=== PATIENT | female | born 1940 | race Caucasian/White ===

== ENCOUNTER 2019-02-26 15:39 | Inpatient (IN) | payer MEDICARE, MEDICAID ==
[~2019-02-26] VITALS: Ht 165.1 cm; Wt 59.0 kg
[2019-02-26] MEDS ORDERED: haloperidol lactate 5mg/ml inj IM ONE ×3 (15:55→20:20)
[2019-02-26] MEDS ORDERED: diphenhydrAMINE 50 mg/ml inj IM ONE (15:55)
[2019-02-26] MEDS ORDERED: LORazepam 2 mg/ml vial IM ONE ×2 (15:55→19:25)
--- NOTE | 2019-02-26 17:54 | NUR ---
pts sons name melissa blackwell [phone] [place], [place] [id number]
--- NOTE | 2019-02-26 18:30 | NUR ---
Pt is sanding at her bedside folding and unfolding the blankets. Her son was visiting, and left during shift change. She is heard mumbling to herself. Upoon approach she is confused and cannot state who she is, where she is, or how old she is.
[2019-02-26 18:31] LABS: BASOPHILS % (AUTO) 0.4 % (0-1); EOSINOPHILS # (AUTO) 0.1 X10'3 (0-0.9); EOSINOPHILS % (AUTO) 1.7 % (0-6); HEMATOCRIT 38.1 % (35.0-45.0); HEMOGLOBIN 12.7 g/dl (12.0-16.0); LYMPHOCYTES # (AUTO) 1.2 X10'3 (1.1-4.8); LYMPHOCYTES % (AUTO) 22.1 % (21-51); MEAN CORPUSCULAR HEMOGLOBIN 31.8 PG (27.0-31.0); MEAN CORPUSCULAR HGB CONC 33.5 g/dL (33.0-36.5); MEAN CORPUSCULAR VOLUME 95.1 FL (78-98); MEAN PLATELET VOLUME 8.3 FL (7.4-10.4); MONOCYTES # (AUTO) 0.5 X10'3 (0-0.9); MONOCYTES % (AUTO) 9.1 % (2-12); NEUTROPHILS # (AUTO) 3.6 X10'3 (1.8-7.7); NEUTROPHILS % (AUTO) 66.7 % (42-75); PLATELET COUNT 200 X10'3 (140-440); RED CELL DISTRIBUTION WIDTH 13.5 % (11.5-14.5); WHITE BLOOD COUNT 5.4 X10'3 (4.5-11.0)
[2019-02-26 18:35] LABS: CLARITY,URINE TURBID (Clear); COLOR,URINE YELLOW (Yellow); GLUCOSE, URINE NEGATIVE (Neg); KETONES,URINE TRACE mg/dl (Neg); LEUKOCYTE ESTERASE ,URINE MODERATE (Neg); NITRITES, URINE NEGATIVE (Neg); OCCULT BLOOD,URINE MODERATE (Neg); PH,URINE 5.5 (4.8-8.0); PROTEIN,URINE TRACE mg/dl (Neg); UA COLLECTION TYPE CLN CATCH MIDSTREAM; UROBILINOGEN,URINE 0.2 E.U/dL (0.2-1.0)
[2019-02-26 18:37] LABS: ALANINE AMINOTRANSFERASE 20 U/L (12-78); ALBUMIN 3.7 G/DL (3.4-5.0); ALBUMIN/GLOBULIN RATIO 1.1 (1.1-1.5); ALKALINE PHOSPHATASE 64 IU/L (46-116); ANION GAP 11 (8-16); ASPARTATE AMINO TRANSFERASE 18 U/L (10-37); BILIRUBIN,TOTAL 0.3 MG/DL (0.1-1.0); BLOOD UREA NITROGEN 45 MG/DL (7-18); CALCIUM 9.4 MG/DL (8.5-10.1); CHLORIDE 107 MMOL/L (99-107); GLUCOSE 113 MG/DL (70-104); POTASSIUM 3.7 MMOL/L (3.5-5.1); SODIUM 143 MMOL/L (135-145); TOTAL CARBON DIOXIDE 25.3 MMOL/L (24-32); TOTAL PROTEIN 7.2 G/DL (6.4-8.2)
[2019-02-26 18:40] LABS: URINE AMPHETAMINE SCREEN NEGATIVE (Neg); URINE BARBITUATE SCREEN NEGATIVE (Neg); URINE BENZODIAZEPINES SCREEN NEGATIVE (Neg); URINE CANNABINOID SCREEN NEGATIVE (Neg); URINE COCAINE SCREEN NEGATIVE (Neg); URINE METHADONE SCREEN NEGATIVE (Neg); URINE OPIATE SCREEN NEGATIVE (Neg); URINE PHENCYCLIDINE SCREEN NEGATIVE (Neg)
[2019-02-26 18:41] LABS: BACTERIA,URINE NONE SEEN /HPF (Neg); MUCUS STRANDS NONE SEEN /LPF (Neg); RBC,URINE 0-2 /HPF (0-2); WBC,URINE 0-4 /HPF (0-4)
[2019-02-26 18:42] LABS: AMORPHOUS URATES 4+; SQUAMOUS EPITHELIAL CELL,UR FEW /LPF (FEW)
[2019-02-26 18:47] LABS: ETHANOL < 0.010 GM/DL (0.0-0.010)
[2019-02-26] MEDS ORDERED: nitrofuran/nitrofuran macrocrysal 100 MG capsule PO ONE (19:00)
[2019-02-26] MEDS ORDERED: cephalexin 250mg capsule PO ONE (19:00)
[2019-02-26 19:20] LABS: BUN/CREATININE RATIO 35.2 (6.6-38.0); CREATININE 1.28 MG/DL (0.40-0.90); eGFR 40 ML/MIN
--- NOTE | 2019-02-26 19:30 | NUR ---
This staff writer triaged and admitted pt, patient is a very poor historian and cannot answer majority of the questions asked. As the assessment and interview was happening pt was trying to wander the unit, pt was redirected by staff multiple times unitl she was sitting in bed.
--- NOTE | 2019-02-26 19:35 | NUR ---
Pt has no external medication rec. and cannot tell development writer if she is on any medications. Her son reported to [facility] nurse that pt is not on any medications at home.
--- NOTE | 2019-02-26 19:40 | NUR ---
Pt is becoming agitated with staff because she is asked to stay in bed/in her area. She repeatedly gets up and tries to go through doors and does not know where she is. She smiles at staff and says nonsensical things, but then tries to get by and walk around. PA consulted, 1mg ativan IM ordered and given with no complications.
--- NOTE | 2019-02-26 20:30 | NUR ---
Pt is becoming more agitated and less redirectable. She appears confused, thinking she "needs to be somewhere" and is calling out people's names. PA consulted, haldol 2.5 mg IM ordered, injection given with no complications. Pt sits down momentarily but is still trying to get up and wander/look for things.
[2019-02-26] MEDS ORDERED: OLANZapine **IM** 10 mg inj. IM ONE (20:35)
--- NOTE | 2019-02-26 20:50 | NUR ---
PT was closing her eyes and trying to stand up and walk around. Staff explained to pt multiple times why she had to stay in bed and explained fall precautions to pt. Pt did not undersatdn and keeps mumbling and trying to wander with her eyes closed. Staff keeps reassuring pt and telling her she is safe and to try to get sleep. Pt remains confused and disoriented. She continues to try to get up with her eyes closed and begins trying to crawl on her hands an knees across the bed. Pt is helped back down onto her buttock on the bed and explained why she can not be crawling on her hands and knees because it is a fall risk. Pt responds unintelligibly and again gets on her hands and knees and begins crawling across the bed and staff prevents her from falling head first onto the floor. PA is notified, 5 mg zyprexa IM ordered, injection administered without complication, pt tolerated well. Orders for restraints also obtained due to acute confusiuon and combativeness.
--- NOTE | 2019-02-26 21:00 | NUR ---
NON BEHAVIORAL RESTRAINTS APPLIED at 2100 Non behavioral sloft restraints applied to RUE and LUE. Vital signs charted in flow sheet, WNL. PA face to face assessment completed by Omer Steiner . Pt's capillary refill WNL bilaterally. No injuries sustained during restraint initiation.
--- NOTE | 2019-02-26 21:05 | NUR ---
packet faxed to [facility]
--- NOTE | 2019-02-26 21:55 | NUR ---
After recieving zyprexa pt is helped to lay down in bed but keeps trying to stand up with her eyes closed and blindly take steps. Pt is helped sit back down in bed and becomes combative with staff and begins kicking and trying to hit staff with her eyes closed mumbling random words. Staff attempts to reorient and reassure pt once again, but pt remains confused and thinks she must get up and "go somewhere." Addendum: 02/27/19 at 0219 by PARAMJIT note is for 20:55 not 21:55
--- NOTE | 2019-02-26 22:00 | NUR ---
PT continues to be in soft restraints 2 point RUE and LUE. Pt's capillary refill WNL bilaterally. No injuries noted. Pt is still confused and mumbling unintelligibly and kicking her legs. PT is reassured that she is safe and reorientation is attempted. Watch Adjuster tells pt she is in the hospital, but pt just says nonsensical things and tries to get up.
--- NOTE | 2019-02-26 23:00 | NUR ---
PT is reassessed, but remains confused and trying to get up. She continues to mumble unintelligibly and fight against the restraints. Staff undo RUE for ROM and assess wrist, no injuries observed. Wrist is placed back into soft restraint. LUE is then released for ROM and to assess wrist, no injuries observed. Vital signs taken and charted, WNL. Capillary refill WNL. Physician notified that pt is still awake, confused, and fighting restraints despite reassurance and reorientation. Physician orders EKG.
[2019-02-26] MEDS ORDERED: ziprasidone IM 20mg inj **IM only IM ONE (23:05)
--- NOTE | 2019-02-26 23:25 | NUR ---
EGK completed and signed off by physician. 20mg Geodon IM ordered. PT given injection with no complications, pt tolerated well.
--- NOTE | 2019-02-27 01:00 | NUR ---
PT reassessed, pt is sleeping on and off, but when she wakes up she remains confused and agitated. RUE released and ROM completed, wrist assessed with no injury noted. RUE then placed back into soft restraint. LUE released and ROM completed, wrist assessed, no injuries noted. LUE then placed back in soft restraint. PT continues to mumble and kick her legs. Vital signs WNL
--- NOTE | 2019-02-27 02:00 | NUR ---
PT resting quietly at this time, staff at bedside. Respirations WNL. Pt wakes up occasionally and mumbles and kicks her feet.
--- NOTE | 2019-02-27 03:00 | NUR ---
PT reassessed, pt sleeps for 10 to 15 minute intervals, but when she wakes up she remains confused and agitated. PT continues to mumble, growl and kick her legs. Vital signs WNL. Capillary refill WNL.
--- NOTE | 2019-02-27 04:00 | NUR ---
Pt is mumbling and kicking her feet. Retirement Specialist tries to re-orient patient but she remains confused and is unable to answer questions. Respirations WNL. Depends briefs dry at this time. Pt offered sips of water but would not drink.
--- NOTE | 2019-02-27 05:00 | NUR ---
PT is reassessed, but remains confused and trying to get up. She continues to mumble unintelligibly and fight against the restraints. Staff undo RUE for ROM and assess wrist, no injuries observed. Wrist is placed back into soft restraint. PT attempts to hit staff. LUE is then released for ROM and to assess wrist, no injuries observed. Vital signs taken and charted, WNL. Capillary refill WNL.
--- NOTE | 2019-02-27 05:30 | NUR ---
PT's depends brief changed and delmy care completed. PT had urinated. New green scrub pants put on pt. Pt tried to kick staff while changing brief. Soon after being changed, pt fell asleep.
--- NOTE | 2019-02-27 06:31 | NUR ---
Pt. has been moved from bed 20 to bed 14
--- NOTE | 2019-02-27 07:54 | NUR ---
Spoke with MD regarding elevated BP trends and known history of HTN. MD to order norvasc PO.
[2019-02-27] MEDS ORDERED: amLODIPine 5mg tablet PO ONE ×3 (08:00→21:35)
--- NOTE | 2019-02-27 10:41 | NUR ---
pt was wet and now changed and sleeping peacefully in bed.
--- NOTE | 2019-02-27 11:58 | NUR ---
PT RESTING ON HER BACK.
--- NOTE | 2019-02-27 12:23 | NUR ---
PT IS SLEEPING PEACEFULLY
[2019-02-27] MEDS ORDERED: CefTRIAXone/D5W-Rocephin 1gm 50 ML IV ONE (12:50)
--- NOTE | 2019-02-27 15:00 | NUR ---
pt sleeping on back
[2019-02-27] MEDS ORDERED: magnesium 4gm in 100ml NS 100 ML IV PRN (17:20)
[2019-02-27] MEDS ORDERED: ondansetron/PF 4mg/2ml inj IV PRN (17:20)
[2019-02-27] MEDS ORDERED: potassium Cl 20 mEq SR tablet PO PRN (17:20)
[2019-02-27] MEDS ORDERED: potassium CL 10mEq/100ml bag 100 ML IV PRN ×2 (17:20)
[2019-02-27] MEDS ORDERED: magnesium 2GM in 50ml NS 50 ML IV PRN (17:20)
[2019-02-27] MEDS ORDERED: magnesium Cl slow-release 64mg tablet PO PRN (17:20)
[2019-02-27] MEDS: normal saline 1000ml 1,000 ML IV SCH (17:28)
--- NOTE | 2019-02-27 17:54 | NUR ---
pt is sitting up and tring to get up
--- NOTE | 2019-02-27 17:55 | NUR ---
pt attempting to get pout of bed. restraints were removed for a bit while pt was sleeping, from 1530 to 1745, then reapplied once pt was back awake and attempting to pull at lines and get oob. will cont to monitor
[2019-02-27 18:00] VITALS: BP 150/63
[2019-02-27] MEDS ORDERED: NO HOME MEDS (18:00)
--- NOTE | 2019-02-27 18:30 | NUR ---
Assumed care of pt., pt. resting comfortably at this time. Relased non-behavioral soft wrist restraints per no s/s of need (i.e. pt. does not present as unsafe at this time). Assessed wrist area and skin, skin remains CDI and capillary refill WNL. Pt. able to perform active ROM in all extremities. Continuous N/S flowing at 100ml/hr to IV in rt. hand, IV patent and no s/s of redness or induration at this time. Pt. also has a bedoya catheter in place, and clear yellow urine is flowing to gravity. Pt. remains A&O X1 to name only, she is confused. However, pt. is able to answer some yes/no questions. RR are normal and no s/s of pain or distress. Fall precautions remain in place, and pt. in sight of nurse's station. Will continue to monitor.
--- NOTE | 2019-02-27 20:25 | NUR ---
I have received report from Courtney WILDER in ED and had the opportunity to ask questions. Will take over patient after arrival to floor.
--- NOTE | 2019-02-27 20:30 | NUR ---
Pt. discharged on a gurney to Medical/surgical unit. Report given to TINA Huang. Pt. remains calm and cooperative, no s/s of distress. Accompanied to med/surge unit with assist of two staff members and transferred to a bed with assistance of four staff members.
[2019-02-27] MEDS: heparin, porcine 5000 units/ml vial SQ SCH (21:45)
[2019-02-28] VITALS: BP 160/61
[2019-02-28] MEDS: normal saline 1000ml 1,000 ML IV SCH ×3 (03:50→13:42)
[2019-02-28 06:30] VITALS: BP 169/89
--- NOTE | 2019-02-28 06:30 | NUR ---
Patient in room [facility]. I have received report from TINA Huang and had the opportunity to ask questions and assume patient care.
--- NOTE | 2019-02-28 06:44 | NUR ---
Problems reprioritized. Patient report given, questions answered & plan of care reviewed with Ning RN.
[2019-02-28 07:20] LABS: BASOPHILS % (AUTO) 0.4 % (0-1); EOSINOPHILS # (AUTO) 0.3 X10'3 (0-0.9); EOSINOPHILS % (AUTO) 6.7 % (0-6); HEMATOCRIT 37.2 % (35.0-45.0); HEMOGLOBIN 12.8 g/dl (12.0-16.0); LYMPHOCYTES # (AUTO) 1.5 X10'3 (1.1-4.8); LYMPHOCYTES % (AUTO) 33.7 % (21-51); MEAN CORPUSCULAR HEMOGLOBIN 31.9 PG (27.0-31.0); MEAN CORPUSCULAR HGB CONC 34.4 g/dL (33.0-36.5); MEAN CORPUSCULAR VOLUME 92.7 FL (78-98); MEAN PLATELET VOLUME 8.3 FL (7.4-10.4); MONOCYTES # (AUTO) 0.4 X10'3 (0-0.9); MONOCYTES % (AUTO) 8.2 % (2-12); NEUTROPHILS # (AUTO) 2.3 X10'3 (1.8-7.7); PLATELET COUNT 190 X10'3 (140-440); RED BLOOD COUNT 4.01 X10'6 (4.20-5.60); RED CELL DISTRIBUTION WIDTH 13.3 % (11.5-14.5); WHITE BLOOD COUNT 4.5 X10'3 (4.5-11.0)
[2019-02-28 07:29] LABS: ALBUMIN 2.9 G/DL (3.4-5.0); ANION GAP 10 (8-16); BLOOD UREA NITROGEN 22 MG/DL (7-18); BUN/CREATININE RATIO 21.8 (6.6-38.0); CHLORIDE 112 MMOL/L (99-107); CREATININE 1.01 MG/DL (0.40-0.90); GLUCOSE 81 MG/DL (70-104); MAGNESIUM 1.9 MG/DL (1.5-2.4); POTASSIUM 3.4 MMOL/L (3.5-5.1); SODIUM 145 MMOL/L (135-145); TOTAL CARBON DIOXIDE 22.9 MMOL/L (24-32); eGFR 53 ML/MIN
[2019-02-28] MEDS: K and/or MAG REPLACEMENT MC SCH (08:00)
[2019-02-28] MEDS: heparin, porcine 5000 units/ml vial SQ SCH ×2 (10:53→19:37)
[2019-02-28 11:00] VITALS: BP 124/50
[2019-02-28] MEDS: potassium Cl 20 mEq SR tablet PO PRN ×3 (12:01→21:07)
--- NOTE | 2019-02-28 18:05 | NUR ---
Patient in room [facility]. I have received report from Ning WILDER and had the opportunity to ask questions and assume patient care.
--- NOTE | 2019-02-28 18:15 | NUR ---
Problems reprioritized. Patient report given, questions answered & plan of care reviewed with TINA Huang.
--- NOTE | 2019-02-28 19:28 | NUR ---
Systolic blood pressure reported to RN as [address]. [address] Pate, ordered 2.5mg Amlodipine PO now. Will continue to monitor.
[2019-02-28] MEDS ORDERED: amLODIPine 2.5mg tablet PO ONE (19:30)
[2019-02-28 20:00] VITALS: BP 193/45
[2019-02-28 21:15] VITALS: BP 142/58
[2019-03-01] VITALS: BP 157/39
--- NOTE | 2019-03-01 06:25 | NUR ---
Patient in room [facility]. I have received report from TINA Huang and had the opportunity to ask questions and assume patient care.
[2019-03-01 07:22] LABS: BASOPHILS % (AUTO) 0.4 % (0-1); EOSINOPHILS # (AUTO) 0.3 X10'3 (0-0.9); HEMATOCRIT 40.5 % (35.0-45.0); HEMOGLOBIN 13.5 g/dl (12.0-16.0); LYMPHOCYTES # (AUTO) 1.5 X10'3 (1.1-4.8); LYMPHOCYTES % (AUTO) 34.3 % (21-51); MEAN CORPUSCULAR HEMOGLOBIN 31.6 PG (27.0-31.0); MEAN CORPUSCULAR HGB CONC 33.3 g/dL (33.0-36.5); MEAN CORPUSCULAR VOLUME 94.8 FL (78-98); MEAN PLATELET VOLUME 8.3 FL (7.4-10.4); MONOCYTES # (AUTO) 0.3 X10'3 (0-0.9); NEUTROPHILS # (AUTO) 2.2 X10'3 (1.8-7.7); NEUTROPHILS % (AUTO) 51.3 % (42-75); PLATELET COUNT 212 X10'3 (140-440); RED BLOOD COUNT 4.27 X10'6 (4.20-5.60); RED CELL DISTRIBUTION WIDTH 13.5 % (11.5-14.5); WHITE BLOOD COUNT 4.3 X10'3 (4.5-11.0)
[2019-03-01 07:30] VITALS: BP 234/69
[2019-03-01 07:39] LABS: ALBUMIN 3.2 G/DL (3.4-5.0); ANION GAP 9 (8-16); BLOOD UREA NITROGEN 16 MG/DL (7-18); BUN/CREATININE RATIO 15.8 (6.6-38.0); CALCIUM 8.6 MG/DL (8.5-10.1); CHLORIDE 113 MMOL/L (99-107); CREATININE 1.01 MG/DL (0.40-0.90); GLUCOSE 90 MG/DL (70-104); POTASSIUM 4.1 MMOL/L (3.5-5.1); SODIUM 146 MMOL/L (135-145); TOTAL CARBON DIOXIDE 23.7 MMOL/L (24-32); eGFR 53 ML/MIN
[2019-03-01] MEDS ORDERED: CefTRIAXone 2gm/D5W 50ml 50 ML IV SCH (08:00)
[2019-03-01] MEDS ORDERED: lisinopril 10 MG tablet PO SCH (08:00)
[2019-03-01] MEDS ORDERED: amLODIPine 5mg tablet PO SCH (08:00)
[2019-03-01] MEDS: heparin, porcine 5000 units/ml vial SQ SCH ×2 (09:06→19:26)
[2019-03-01] MEDS: normal saline 1000ml 1,000 ML IV SCH ×2 (09:06→20:56)
[2019-03-01] MEDS: K and/or MAG REPLACEMENT MC SCH (09:06)
[2019-03-01 11:30] VITALS: BP 178/64
[2019-03-01] MEDS ORDERED: amLODIPine 5mg tablet PO ONE (12:10)
[2019-03-01] MEDS: magnesium hydroxide 30ml (MOM) UD suspension PO PRN (17:01)
[2019-03-01] MEDS: acetaminophen 325mg tablet PO PRN (17:01)
--- NOTE | 2019-03-01 18:05 | NUR ---
Patient in room [facility]. I have received report from Ning WILDER and had the opportunity to ask questions and assume patient care.
--- NOTE | 2019-03-01 18:15 | NUR ---
Problems reprioritized. Patient report given, questions answered & plan of care reviewed with TINA Huang.
[2019-03-01 20:00] VITALS: BP 169/78
[2019-03-01] MEDS ORDERED: lisinopril 20mg tablet PO ONE (23:20)
--- NOTE | 2019-03-01 23:21 | NUR ---
Blood pressure reported to RN as 180/66 and heart rate 50. Notified Dr. Perez, ordered Lisinopril 20mg PO now and increase morning scheduled dose to Lisinopril 40mg PO Daily.
[2019-03-02] VITALS: BP 180/66
[2019-03-02 05:20] LABS: BASOPHILS % (AUTO) 0.3 % (0-1); EOSINOPHILS # (AUTO) 0.2 X10'3 (0-0.9); EOSINOPHILS % (AUTO) 3.8 % (0-6); HEMATOCRIT 39.4 % (35.0-45.0); HEMOGLOBIN 13.5 g/dl (12.0-16.0); LYMPHOCYTES # (AUTO) 1.5 X10'3 (1.1-4.8); LYMPHOCYTES % (AUTO) 32.6 % (21-51); MEAN CORPUSCULAR HEMOGLOBIN 32.1 PG (27.0-31.0); MEAN CORPUSCULAR HGB CONC 34.2 g/dL (33.0-36.5); MEAN CORPUSCULAR VOLUME 93.6 FL (78-98); MEAN PLATELET VOLUME 8.1 FL (7.4-10.4); MONOCYTES # (AUTO) 0.4 X10'3 (0-0.9); MONOCYTES % (AUTO) 9.6 % (2-12); NEUTROPHILS # (AUTO) 2.5 X10'3 (1.8-7.7); NEUTROPHILS % (AUTO) 53.7 % (42-75); PLATELET COUNT 219 X10'3 (140-440); RED BLOOD COUNT 4.21 X10'6 (4.20-5.60); WHITE BLOOD COUNT 4.6 X10'3 (4.5-11.0)
[2019-03-02 05:23] LABS: ALBUMIN 3.6 G/DL (3.4-5.0); ANION GAP 10 (8-16); BLOOD UREA NITROGEN 12 MG/DL (7-18); BUN/CREATININE RATIO 12.6 (6.6-38.0); CALCIUM 8.7 MG/DL (8.5-10.1); CHLORIDE 109 MMOL/L (99-107); CREATININE 0.95 MG/DL (0.40-0.90); GLUCOSE 101 MG/DL (70-104); POTASSIUM 3.5 MMOL/L (3.5-5.1); SODIUM 145 MMOL/L (135-145); TOTAL CARBON DIOXIDE 25.7 MMOL/L (24-32); eGFR 57 ML/MIN
--- NOTE | 2019-03-02 06:05 | NUR ---
Patient in room [facility]. I have received report from TINA Huang and had the opportunity to ask questions and assume patient care.
--- NOTE | 2019-03-02 06:27 | NUR ---
Problems reprioritized. Patient report given, questions answered & plan of care reviewed with Ning RN.
[2019-03-02 06:30] VITALS: BP 158/57
[2019-03-02] MEDS: K and/or MAG REPLACEMENT MC SCH (06:49)
[2019-03-02] MEDS: lisinopril 20mg tablet PO SCH (08:05)
[2019-03-02] MEDS: amLODIPine 5mg tablet PO SCH (08:06)
[2019-03-02] MEDS: heparin, porcine 5000 units/ml vial SQ SCH ×2 (08:07→19:33)
[2019-03-02] MEDS: magnesium hydroxide 30ml (MOM) UD suspension PO PRN (08:28)
[2019-03-02] MEDS: normal saline 1000ml 1,000 ML IV SCH (10:05)
[2019-03-02 11:00] VITALS: BP 130/54
--- NOTE | 2019-03-02 18:10 | NUR ---
Problems reprioritized. Patient report given, questions answered & plan of care reviewed with TINA Rajput.
[2019-03-02 18:50] VITALS: BP 138/60
[2019-03-03 05:38] LABS: BASOPHILS % (AUTO) 0.5 % (0-1); EOSINOPHILS # (AUTO) 0.3 X10'3 (0-0.9); EOSINOPHILS % (AUTO) 6.7 % (0-6); HEMATOCRIT 34.4 % (35.0-45.0); HEMOGLOBIN 11.7 g/dl (12.0-16.0); LYMPHOCYTES # (AUTO) 2.1 X10'3 (1.1-4.8); LYMPHOCYTES % (AUTO) 45.2 % (21-51); MEAN CORPUSCULAR HEMOGLOBIN 32.1 PG (27.0-31.0); MEAN CORPUSCULAR VOLUME 94.4 FL (78-98); MEAN PLATELET VOLUME 8.7 FL (7.4-10.4); MONOCYTES # (AUTO) 0.4 X10'3 (0-0.9); MONOCYTES % (AUTO) 8.2 % (2-12); NEUTROPHILS # (AUTO) 1.8 X10'3 (1.8-7.7); NEUTROPHILS % (AUTO) 39.4 % (42-75); PLATELET COUNT 203 X10'3 (140-440); RED BLOOD COUNT 3.65 X10'6 (4.20-5.60); RED CELL DISTRIBUTION WIDTH 13.3 % (11.5-14.5); WHITE BLOOD COUNT 4.6 X10'3 (4.5-11.0)
[2019-03-03 05:42] LABS: ALBUMIN 2.7 G/DL (3.4-5.0); ANION GAP 5 (8-16); BLOOD UREA NITROGEN 19 MG/DL (7-18); CALCIUM 8.1 MG/DL (8.5-10.1); CHLORIDE 111 MMOL/L (99-107); CREATININE 1.12 MG/DL (0.40-0.90); GLUCOSE 88 MG/DL (70-104); POTASSIUM 4.2 MMOL/L (3.5-5.1); SODIUM 144 MMOL/L (135-145); TOTAL CARBON DIOXIDE 27.6 MMOL/L (24-32); eGFR 47 ML/MIN
--- NOTE | 2019-03-03 06:24 | NUR ---
Problems reprioritized. Patient report given, questions answered & plan of care reviewed with GEORGINA. Addendum: 03/03/19 at 0624 by Akil Fowler RN Amended: Links added.
--- NOTE | 2019-03-03 06:25 | NUR ---
Patient in room [facility]. I have received report from TINA Rajput and had the opportunity to ask questions and assume patient care.
[2019-03-03] MEDS: heparin, porcine 5000 units/ml vial SQ SCH ×2 (07:19→19:56)
[2019-03-03] MEDS: lisinopril 20mg tablet PO SCH (07:19)
[2019-03-03] MEDS: amLODIPine 5mg tablet PO SCH (07:19)
[2019-03-03 08:00] VITALS: BP 165/73
[2019-03-03] MEDS: K and/or MAG REPLACEMENT MC SCH (08:00)
[2019-03-03 09:00] VITALS: BP 128/49
--- NOTE | 2019-03-03 10:41 | NUR ---
Initial: Pt admit with cognitive impairment, probable dementia with progressive decline over the last 2 year per H&P. Patient's mentation improved per MD notes however documented as confused and A/O x 1 per physical assessment. Pt on abx and IV fluids stopped d/t pt with suspected UTI and probable dehydration/ALICE per MD notes. Pt currently on regular diet documented with average 75-100% PO intake likely meeting nutrient needs. LBM 03/02 with multiple small BMs after receiving bowel care d/t LBM previously 02/26 per physical assessment. No edema or wounds. No nutrition diagnosis at this time. Will continue to follow. Recommendations: 1) Continue with regular diet 2) Routine bowel care 3) Wt per rx Addendum: 03/03/19 at [address] Amended: Links added.
--- NOTE | 2019-03-03 10:48 | NUR ---
Patient in room [facility]. I have received report from TINA Hollins and had the opportunity to ask questions and assume patient care.
[2019-03-03 11:00] VITALS: BP 148/69
--- NOTE | 2019-03-03 18:46 | NUR ---
Problems reprioritized. Patient report given, questions answered & plan of care reviewed with TINA Peña.
[2019-03-03 20:00] VITALS: BP 156/88
[2019-03-04] VITALS: BP 121/57
[2019-03-04 05:02] LABS: BASOPHILS % (AUTO) 0.4 % (0-1); EOSINOPHILS # (AUTO) 0.3 X10'3 (0-0.9); EOSINOPHILS % (AUTO) 6.4 % (0-6); HEMATOCRIT 35.3 % (35.0-45.0); LYMPHOCYTES # (AUTO) 1.9 X10'3 (1.1-4.8); LYMPHOCYTES % (AUTO) 43.1 % (21-51); MEAN CORPUSCULAR HGB CONC 33.9 g/dL (33.0-36.5); MEAN CORPUSCULAR VOLUME 94.4 FL (78-98); MEAN PLATELET VOLUME 8.5 FL (7.4-10.4); MONOCYTES # (AUTO) 0.4 X10'3 (0-0.9); MONOCYTES % (AUTO) 7.9 % (2-12); NEUTROPHILS # (AUTO) 1.9 X10'3 (1.8-7.7); NEUTROPHILS % (AUTO) 42.2 % (42-75); PLATELET COUNT 197 X10'3 (140-440); RED BLOOD COUNT 3.74 X10'6 (4.20-5.60); RED CELL DISTRIBUTION WIDTH 13.2 % (11.5-14.5); WHITE BLOOD COUNT 4.4 X10'3 (4.5-11.0)
[2019-03-04 05:09] LABS: ALBUMIN 2.8 G/DL (3.4-5.0); ANION GAP 8 (8-16); BLOOD UREA NITROGEN 24 MG/DL (7-18); BUN/CREATININE RATIO 23.8 (6.6-38.0); CALCIUM 8.9 MG/DL (8.5-10.1); CHLORIDE 111 MMOL/L (99-107); CREATININE 1.01 MG/DL (0.40-0.90); GLUCOSE 89 MG/DL (70-104); SODIUM 144 MMOL/L (135-145); TOTAL CARBON DIOXIDE 24.6 MMOL/L (24-32); eGFR 53 ML/MIN
--- NOTE | 2019-03-04 06:39 | NUR ---
Problems reprioritized. Patient report given, questions answered & plan of care reviewed with TINA Oden.
--- NOTE | 2019-03-04 06:41 | NUR ---
Patient in room [facility]. I have received report from Casey WILDER and had the opportunity to ask questions and assume patient care.
[2019-03-04] MEDS: K and/or MAG REPLACEMENT MC SCH (07:56)
[2019-03-04 08:51] VITALS: BP 135/59
[2019-03-04] MEDS: lisinopril 20mg tablet PO SCH (09:15)
[2019-03-04] MEDS: amLODIPine 5mg tablet PO SCH (09:15)
[2019-03-04] MEDS: heparin, porcine 5000 units/ml vial SQ SCH ×2 (09:16→19:01)
[2019-03-04 10:48] VITALS: BP 137/55
[2019-03-04 11:00] VITALS: BP 137/55
[2019-03-04 18:00] VITALS: BP 134/57
--- NOTE | 2019-03-04 18:50 | NUR ---
Problems reprioritized. Patient report given, questions answered & plan of care reviewed with Casey WILDER.
[2019-03-04] MEDS ORDERED: LORazepam 0.5 MG tablet PO PRN (21:55)
[2019-03-05] VITALS: BP 185/67
[2019-03-05] MEDS: LORazepam 2 mg/ml vial IV PRN ×2 (02:19→10:30)
[2019-03-05] MEDS ORDERED: LORazepam 2 mg/ml vial IM ONE (03:50)
--- NOTE | 2019-03-05 04:19 | NUR ---
PT INCREASINGLY AGITATED, UNABLE TO BE REORIENTED AND CALMED DOWN. PT BECAME COMBATIVE, GOING THROUGH ROOMMATE'S BELONGINGS DESPITE ATTEMPTS TO STOP BEHAVIOR AND REORIENT PT. ORDERS OBTAINED FOR SOFT RESTRAINTS AND 1MG IM ATIVAN ONCE
--- NOTE | 2019-03-05 06:10 | NUR ---
pt resting in bed, in no apparent distress. restraints taken off. will continue to monitor
--- NOTE | 2019-03-05 06:34 | NUR ---
Problems reprioritized. Patient report given, questions answered & plan of care reviewed with TINA Oden.
--- NOTE | 2019-03-05 06:56 | NUR ---
Patient in room [facility]. I have received report from Casey WILDER and had the opportunity to ask questions and assume patient care.
[2019-03-05 07:00] VITALS: BP 112/50
[2019-03-05 07:58] VITALS: BP 142/101
[2019-03-05] MEDS: K and/or MAG REPLACEMENT MC SCH (08:00)
--- NOTE | 2019-03-05 09:27 | NUR ---
Patient still sleepy at this time, able to respond when being touch but will not cooperate at this time. Oral meds and heparin SQ scheduled this am held at this time
--- NOTE | 2019-03-05 09:28 | NUR ---
I have told Dr. Fan when he called me at earlier time about patient's agitation and combativeness last night. I let him know that patient ended up being on 2 point restraints last night and currently off at this time. Sitter at bedside watching the patient
--- NOTE | 2019-03-05 09:49 | NUR ---
Patient awake at this time but agitated and combative trying to kick the sitter. 2point soft wrist restraint reapplied
[2019-03-05] MEDS: amLODIPine 5mg tablet PO SCH (09:51)
[2019-03-05] MEDS: lisinopril 20mg tablet PO SCH (09:52)
[2019-03-05] MEDS: heparin, porcine 5000 units/ml vial SQ SCH ×2 (09:53→21:54)
--- NOTE | 2019-03-05 10:33 | NUR ---
Sitter at bedside reported that patient thew the food tray to the floor and also trying to throw things towards the other patient in bed B. Patient's was placed back on restraints and Ativan 0.5mg IV given. Charge nurse Charo younger.
[2019-03-05 11:00] VITALS: BP 129/62
--- NOTE | 2019-03-05 15:49 | NUR ---
Student documentation: I have reviewed all interventions, assessments performed and documented by Gallito ROSARIO
[2019-03-05 18:00] VITALS: BP 106/46
--- NOTE | 2019-03-05 18:37 | NUR ---
Problems reprioritized. Patient report given, questions answered & plan of care reviewed with Elmer WILDER.
--- NOTE | 2019-03-05 19:46 | NUR ---
Patient in room [facility]. I have received report from TINA Oden and had the opportunity to ask questions and assume patient care.
[2019-03-05] MEDS: QUEtiapine 25mg tablet PO SCH (21:55)
[2019-03-06] VITALS: BP 114/48
--- NOTE | 2019-03-06 03:58 | NUR ---
Patient has been cooperative, and pleasant so far this shift. Sitter at bedside. Patient resting
--- NOTE | 2019-03-06 06:24 | NUR ---
Problems reprioritized. Patient report given, questions answered & plan of care reviewed with TINA Swift.
[2019-03-06 07:37] VITALS: BP 103/42
[2019-03-06] MEDS: amLODIPine 5mg tablet PO SCH (07:55)
[2019-03-06] MEDS: heparin, porcine 5000 units/ml vial SQ SCH ×2 (07:55→20:04)
[2019-03-06] MEDS: lisinopril 20mg tablet PO SCH (07:55)
[2019-03-06] MEDS: K and/or MAG REPLACEMENT MC SCH (07:56)
[2019-03-06 15:07] VITALS: BP 122/48
--- NOTE | 2019-03-06 18:40 | NUR ---
Patient in room [facility]. I have received report from Jeniffer Goodson and had the opportunity to ask questions and assume patient care. Addendum: 03/06/19 at 1840 by Whitney Veliz RN Amended: Links added.
[2019-03-06 20:00] VITALS: BP 113/43
--- NOTE | 2019-03-06 20:00 | NUR ---
pt took her hs meds with applesauce. medicated with one tylenol for aches and sitter at bedside to redirect her.
[2019-03-06] MEDS: QUEtiapine 25mg tablet PO SCH (20:04)
[2019-03-06] MEDS: acetaminophen 325mg tablet PO PRN (20:05)
--- NOTE | 2019-03-06 20:40 | NUR ---
pt up ambulating in the bello several laps with the sitter.
--- NOTE | 2019-03-06 22:35 | NUR ---
pt alert and ambulATED TO P WITH 2 STAFF MEMBERS. PT SLEEPY BUT FIGHTING IT. TOLERATED AMBULATION WELL AND GAVE HER COLOERED PINS AND PAPER TO REDIRECT HER.
[2019-03-07] VITALS: BP 106/89
--- NOTE | 2019-03-07 00:39 | NUR ---
pt resting eyes closed with sitter at the bedside.
--- NOTE | 2019-03-07 02:30 | NUR ---
resting eyes closed without changes. sitter at the bedside.
--- NOTE | 2019-03-07 04:30 | NUR ---
resting without changes.
--- NOTE | 2019-03-07 06:30 | NUR ---
Patient in room [facility]. I have received report from JIN WILDER and had the opportunity to ask questions and assume patient care.
--- NOTE | 2019-03-07 06:42 | NUR ---
Problems reprioritized. Patient report given, questions answered & plan of care reviewed with Juan Goodson. Addendum: 03/07/19 at 0642 by Whitney Veliz RN Amended: Links added.
[2019-03-07 07:44] VITALS: BP 172/84
[2019-03-07] MEDS: K and/or MAG REPLACEMENT MC SCH (07:55)
[2019-03-07] MEDS: heparin, porcine 5000 units/ml vial SQ SCH ×2 (08:00→20:13)
[2019-03-07] MEDS: amLODIPine 5mg tablet PO SCH (08:04)
[2019-03-07] MEDS: lisinopril 20mg tablet PO SCH (08:04)
--- NOTE | 2019-03-07 08:27 | NUR ---
PATIENT HEPARIN WAS NON ADMINISTERED DUE TO THE FACT THAT NO RECENT LAB VALUES HAVE BEEN OBTAINED ON PATIENTS CLOTTING FACTORS. WILL NOTIFY PHYSICIAN.
[2019-03-07 11:00] VITALS: BP 117/48
--- NOTE | 2019-03-07 18:45 | NUR ---
Problems reprioritized. Patient report given, questions answered & plan of care reviewed with Whitney WILDER.
--- NOTE | 2019-03-07 18:55 | NUR ---
Patient in room [facility]. I have received report from Juan Goodson and had the opportunity to ask questions and assume patient care. Addendum: 03/07/19 at 1855 by Whitney Veliz RN Amended: Links added.
[2019-03-07 20:00] VITALS: BP 148/68
[2019-03-07] MEDS: QUEtiapine 25mg tablet PO SCH (20:13)
[2019-03-07] MEDS: magnesium hydroxide 30ml (MOM) UD suspension PO PRN (20:33)
--- NOTE | 2019-03-07 20:37 | NUR ---
pt given warm brown smita and MOM for Bm not had since 03/02/19
--- NOTE | 2019-03-07 22:00 | NUR ---
pt up ambulating in the room and encouraged to lay down sitter in the room with pt. laying down awake.
--- NOTE | 2019-03-07 23:18 | NUR ---
resting eyes closed without changes.
[2019-03-08] VITALS: BP 121/43
--- NOTE | 2019-03-08 01:14 | NUR ---
pt resting without changes sitter at bedside.
--- NOTE | 2019-03-08 03:15 | NUR ---
pt awake sitting up edge of bed talking with the sitter.
--- NOTE | 2019-03-08 05:34 | NUR ---
pt resting right side no s&s of distress at this time.
--- NOTE | 2019-03-08 06:30 | NUR ---
Patient in room [facility]. I have received report from Whitney WILDER and had the opportunity to ask questions and assume patient care.
--- NOTE | 2019-03-08 06:35 | NUR ---
Problems reprioritized. Patient report given, questions answered & plan of care reviewed with Juan Goodson. Addendum: 03/08/19 at 0636 by Whitney Veliz RN Amended: Links added.
[2019-03-08] MEDS: K and/or MAG REPLACEMENT MC SCH (08:00)
[2019-03-08] MEDS: heparin, porcine 5000 units/ml vial SQ SCH ×2 (08:00→20:00)
[2019-03-08] MEDS: lisinopril 20mg tablet PO SCH (08:13)
[2019-03-08] MEDS: amLODIPine 5mg tablet PO SCH (08:14)
[2019-03-08 10:29] VITALS: BP 123/46
[2019-03-08 11:00] VITALS: BP 147/70
[2019-03-08 18:00] VITALS: BP 133/48
--- NOTE | 2019-03-08 18:30 | NUR ---
Problems reprioritized. Patient report given, questions answered & plan of care reviewed with Whitney WILDER.
--- NOTE | 2019-03-08 18:35 | NUR ---
Patient in room [facility]. I have received report from DEANNA WILDER and had the opportunity to ask questions and assume patient care. Addendum: 03/08/19 at 1907 by Whitney Veliz RN Amended: Links added.
[2019-03-08 19:30] VITALS: BP 133/48
--- NOTE | 2019-03-08 20:35 | NUR ---
pt took hs meds heparin held no current labs on her for this.
--- NOTE | 2019-03-08 20:40 | NUR ---
Dr Pate notified of no current labs for dvt tx and cbc ordered for the am
[2019-03-08] MEDS: QUEtiapine 25mg tablet PO SCH (20:54)
--- NOTE | 2019-03-08 22:33 | NUR ---
pt up ambulating in the room and the bello with the sitter. pleasant. drank warm milk.
[2019-03-09] VITALS: BP 154/70
--- NOTE | 2019-03-09 00:25 | NUR ---
pt awake sitting up edge of bed talking with sitter had a snack.
--- NOTE | 2019-03-09 00:30 | NUR ---
pt laying down with head at the foot of the bed resting eyes closed without s&s of distress with sitter at the bedside. Addendum: 03/10/19 at 0217 by Whitney Veliz RN day!
--- NOTE | 2019-03-09 01:35 | NUR ---
resting on side without changes
--- NOTE | 2019-03-09 03:26 | NUR ---
resting no change sitter at bedside
--- NOTE | 2019-03-09 05:13 | NUR ---
attempt to remove old iv from pt out dated and pt refused to let staff do that.
--- NOTE | 2019-03-09 06:13 | NUR ---
Problems reprioritized. Patient report given, questions answered & plan of care reviewed with Juan Goodson. Addendum: 03/09/19 at 0613 by Whitney Veliz RN Amended: Links added.
[2019-03-09 06:30] LABS: BASOPHILS % (AUTO) 0.4 % (0-1); EOSINOPHILS # (AUTO) 0.3 X10'3 (0-0.9); EOSINOPHILS % (AUTO) 6.1 % (0-6); HEMATOCRIT 34.9 % (35.0-45.0); HEMOGLOBIN 11.9 g/dl (12.0-16.0); LYMPHOCYTES # (AUTO) 1.7 X10'3 (1.1-4.8); LYMPHOCYTES % (AUTO) 38.4 % (21-51); MEAN CORPUSCULAR HEMOGLOBIN 32.3 PG (27.0-31.0); MEAN CORPUSCULAR HGB CONC 34.1 g/dL (33.0-36.5); MEAN CORPUSCULAR VOLUME 94.8 FL (78-98); MEAN PLATELET VOLUME 8.6 FL (7.4-10.4); MONOCYTES # (AUTO) 0.4 X10'3 (0-0.9); MONOCYTES % (AUTO) 9.3 % (2-12); NEUTROPHILS % (AUTO) 45.8 % (42-75); PLATELET COUNT 209 X10'3 (140-440); RED BLOOD COUNT 3.68 X10'6 (4.20-5.60); RED CELL DISTRIBUTION WIDTH 13.4 % (11.5-14.5); WHITE BLOOD COUNT 4.4 X10'3 (4.5-11.0)
--- NOTE | 2019-03-09 06:30 | NUR ---
Patient in room [facility]. I have received report from Whitney WILDER and had the opportunity to ask questions and assume patient care.
[2019-03-09 08:00] VITALS: BP 96/75
[2019-03-09] MEDS: K and/or MAG REPLACEMENT MC SCH (08:00)
[2019-03-09] MEDS: amLODIPine 5mg tablet PO SCH (08:00)
[2019-03-09] MEDS: lisinopril 20mg tablet PO SCH (08:00)
[2019-03-09 11:00] VITALS: BP 121/44
[2019-03-09] MEDS: heparin, porcine 5000 units/ml vial SQ SCH ×2 (11:05→20:00)
[2019-03-09 11:10] VITALS: BP 121/44
--- NOTE | 2019-03-09 18:20 | NUR ---
Problems reprioritized. Patient report given, questions answered & plan of care reviewed with Whitney WILDER.
--- NOTE | 2019-03-09 18:36 | NUR ---
Patient in room [facility]. I have received report from Juan WILDER and had the opportunity to ask questions and assume patient care. Addendum: 03/09/19 at 1836 by Whitney Veliz RN Amended: Links added.
--- NOTE | 2019-03-09 19:00 | NUR ---
pt agitated acted like she wanted to argue with the staff not as pleasant and lively as she had been the previous 3 nights. attempted to encourage pt to let us Dc the Iv site and she refused and attempted to get her into the shower several times without success.
[2019-03-09 20:00] VITALS: BP 144/85
--- NOTE | 2019-03-09 20:20 | NUR ---
Ebony took pt into the shower room put her on the shower chair to wash her she went pee then refused to let the tech shower her sio she wiped her down and took her back to the room.
[2019-03-09] MEDS: QUEtiapine 25mg tablet PO SCH (20:24)
--- NOTE | 2019-03-09 22:20 | NUR ---
pt acting mean stated tired, pt confused and not as cheerful and animated as she had been the night before. pt admitted when asked if she had a headache and said yes. attempted earlier to dc iv pt refused to let staff touch it to dc it. asked her if she wanted to take tape off herself and again refused to do so. pt medicated with tylenol for pain.
[2019-03-09] MEDS: acetaminophen 325mg tablet PO PRN (22:21)
[2019-03-10] VITALS: BP 122/85
--- NOTE | 2019-03-10 00:30 | NUR ---
pt laying down with head at the foot of the bed. resting eyes closed without s&S of distress.
--- NOTE | 2019-03-10 02:19 | NUR ---
pt remains resting head at foot of bed wioth sitter at the bedside no s&s of distress at this time.
--- NOTE | 2019-03-10 04:03 | NUR ---
resting without changes sitter at bedside.
--- NOTE | 2019-03-10 05:49 | NUR ---
Student documentation: I have reviewed and agree with all interventions, assessments performed and documented by FABRIZIO Paulino RN.Student Medication Administration: For this medication-pass time frame, all medication were reviewed, dispensed, administered and documented per hospital policy by FABRIZIO Paulino. Addendum: 03/10/19 at 0550 by Whitney Veliz RN Amended: Links added.
--- NOTE | 2019-03-10 06:30 | NUR ---
Patient in room [facility]. I have received report from JIN WILDER and had the opportunity to ask questions and assume patient care.
--- NOTE | 2019-03-10 06:30 | NUR ---
Problems reprioritized. Patient report given, questions answered & plan of care reviewed with Cali Martinez. Addendum: 03/10/19 at 0630 by Whitney Veliz RN Amended: Links added.
[2019-03-10 07:46] VITALS: BP 138/69
[2019-03-10] MEDS: heparin, porcine 5000 units/ml vial SQ SCH ×2 (08:00→20:00)
[2019-03-10] MEDS: K and/or MAG REPLACEMENT MC SCH (08:00)
[2019-03-10] MEDS: lisinopril 20mg tablet PO SCH (08:00)
[2019-03-10] MEDS: amLODIPine 5mg tablet PO SCH (08:00)
--- NOTE | 2019-03-10 10:10 | NUR ---
Reassessment: Appetite seems to fluctuate, momentarily down to 50% PO intake however now back up averaging 75% likely meeting nutrient needs. LBM 03/08, pt receiving MoM PRN last given 03/07. Per MD notes pt is stable and is awaiting insurance approval and long-term placement. Will continue to follow. Recommendations: 1) Continue with regular diet 2) Routine bowel care 3) Wt per rx Addendum: 03/10/19 at [address] Amended: Links added.
[2019-03-10 11:00] VITALS: BP 169/56
--- NOTE | 2019-03-10 18:30 | NUR ---
Problems reprioritized. Patient report given, questions answered & plan of care reviewed with CHRISTEN WILDER.
--- NOTE | 2019-03-10 18:37 | NUR ---
Patient in room [facility]. I have received report from TINA Martinez and had the opportunity to ask questions and assume patient care.
[2019-03-10 20:00] VITALS: BP 145/69
[2019-03-10] MEDS: QUEtiapine 25mg tablet PO SCH (20:29)
[2019-03-11] VITALS: BP 134/55
--- NOTE | 2019-03-11 06:21 | NUR ---
Problems reprioritized. Patient report given, questions answered & plan of care reviewed with TINA Lr.
[2019-03-11 07:00] VITALS: BP 135/45
[2019-03-11] MEDS: K and/or MAG REPLACEMENT MC SCH (08:00)
[2019-03-11] MEDS: lisinopril 20mg tablet PO SCH (08:38)
[2019-03-11 08:39] VITALS: BP 138/70
[2019-03-11] MEDS: amLODIPine 5mg tablet PO SCH (08:45)
[2019-03-11] MEDS: heparin, porcine 5000 units/ml vial SQ SCH ×2 (08:45→19:51)
[2019-03-11 11:51] VITALS: BP 120/75
--- NOTE | 2019-03-11 17:20 | NUR ---
Page to Dr. Fan - pt getting anxious, agitated, and restless. It's getting harder to try and calm pt and redirect. No PRNs available. Ok to order Haldol? Addendum: 03/11/19 at 1722 by Adeline Castro RN called back and stated ok to give Geodon 10mg IM q8h PRN for anxiety/agitation. will place the order and administer.
--- NOTE | 2019-03-11 19:01 | NUR ---
Patient in room [facility]. I have received report from Adeline WILDER and had the opportunity to ask questions and assume patient care.
--- NOTE | 2019-03-11 19:02 | NUR ---
Problems reprioritized. Patient report given, questions answered & plan of care reviewed with TINA Krishnan.
[2019-03-11] MEDS: QUEtiapine 25mg tablet PO SCH (19:52)
[2019-03-11 20:00] VITALS: BP 123/60
[2019-03-12] VITALS: BP 144/58
--- NOTE | 2019-03-12 06:42 | NUR ---
Problems reprioritized. Patient report given, questions answered & plan of care reviewed with Carmela WILDER.
--- NOTE | 2019-03-12 06:47 | NUR ---
Patient in room [facility]. I have received report from ONEL WILDER and had the opportunity to ask questions and assume patient care.
[2019-03-12 07:12] VITALS: BP 104/37
[2019-03-12] MEDS: K and/or MAG REPLACEMENT MC SCH (08:00)
[2019-03-12] MEDS: amLODIPine 5mg tablet PO SCH (09:08)
[2019-03-12] MEDS: lisinopril 20mg tablet PO SCH (09:08)
[2019-03-12] MEDS: heparin, porcine 5000 units/ml vial SQ SCH ×2 (09:08→20:00)
--- NOTE | 2019-03-12 09:58 | NUR ---
PT HAS NOT HAD LABS DRAWN SINCE 03-06-19. UNABLE TO ASSESS MAG AND K REPLACEMENT PROTOCOL. CHARTED PT HAD CHANGE IN CONDITION, DUE TO HER BASELINE BEING MEDICALLY STABLE AND WAITING FOR PLACEMENT DUE TO NOT BEING ABLE TO RETURN HOME SAFELY.
--- NOTE | 2019-03-12 18:35 | NUR ---
gave report to Audrey Ventura RN
--- NOTE | 2019-03-12 18:40 | NUR ---
Patient in room [facility]. I have received report from JOYCELYN WILDER and had the opportunity to ask questions and assume patient care.
[2019-03-12 20:00] VITALS: BP 127/56
[2019-03-12] MEDS: QUEtiapine 25mg tablet PO SCH (20:21)
[2019-03-12] MEDS: ziprasidone IM 20mg inj **IM only IM PRN (23:42)
--- NOTE | 2019-03-13 06:33 | NUR ---
Problems reprioritized. Patient report given, questions answered & plan of care reviewed with DIEGO WILDER.
[2019-03-13] MEDS: K and/or MAG REPLACEMENT MC SCH (06:42)
[2019-03-13 07:00] VITALS: BP 114/42
[2019-03-13] MEDS: amLODIPine 5mg tablet PO SCH (09:13)
[2019-03-13] MEDS: lisinopril 20mg tablet PO SCH (09:13)
[2019-03-13] MEDS: heparin, porcine 5000 units/ml vial SQ SCH ×2 (09:14→20:07)
[2019-03-13 11:59] VITALS: BP 105/40
[2019-03-13 15:37] VITALS: BP 131/41
--- NOTE | 2019-03-13 18:22 | NUR ---
Problems reprioritized. Patient report given, questions answered & plan of care reviewed with BRAYDEN OWEN RN.
--- NOTE | 2019-03-13 18:30 | NUR ---
Patient in room [facility]. I have received report from DIEGO WILDER and had the opportunity to ask questions and assume patient care.
[2019-03-13 20:00] VITALS: BP 135/67
[2019-03-13] MEDS: QUEtiapine 25mg tablet PO SCH (20:05)
[2019-03-13] MEDS: ziprasidone IM 20mg inj **IM only IM PRN (22:27)
--- NOTE | 2019-03-14 06:18 | NUR ---
Problems reprioritized. Patient report given, questions answered & plan of care reviewed with DIEGO WILDER.
--- NOTE | 2019-03-14 06:20 | NUR ---
Patient in room [facility]. I have received report from ron velasquez rn and had the opportunity to ask questions and assume patient care.
[2019-03-14] MEDS: K and/or MAG REPLACEMENT MC SCH (06:37)
[2019-03-14] MEDS: amLODIPine 5mg tablet PO SCH (07:51)
[2019-03-14] MEDS: lisinopril 20mg tablet PO SCH (07:51)
[2019-03-14] MEDS: heparin, porcine 5000 units/ml vial SQ SCH ×2 (07:55→20:38)
[2019-03-14 07:58] VITALS: BP 114/38
[2019-03-14 12:08] VITALS: BP 104/30
--- NOTE | 2019-03-14 18:16 | NUR ---
Problems reprioritized. Patient report given, questions answered & plan of care reviewed with wendy bruner.
--- NOTE | 2019-03-14 18:50 | NUR ---
Patient in room [facility]. I have received report from TINA Shepard and had the opportunity to ask questions and assume patient care.
[2019-03-14 19:00] VITALS: BP 134/51
[2019-03-14] MEDS: QUEtiapine 25mg tablet PO SCH (20:38)
[2019-03-14] MEDS: magnesium hydroxide 30ml (MOM) UD suspension PO PRN (20:43)
[2019-03-15] VITALS: BP 145/58
--- NOTE | 2019-03-15 06:49 | NUR ---
Problems reprioritized. Patient report given, questions answered & plan of care reviewed with TINA Oden.
[2019-03-15 07:00] VITALS: BP 112/92
--- NOTE | 2019-03-15 07:04 | NUR ---
Patient in room [facility]. I have received report from Nisa WILDER and had the opportunity to ask questions and assume patient care.
[2019-03-15] MEDS: K and/or MAG REPLACEMENT MC SCH (08:00)
[2019-03-15] MEDS: heparin, porcine 5000 units/ml vial SQ SCH ×2 (08:01→20:28)
[2019-03-15] MEDS: amLODIPine 5mg tablet PO SCH (08:02)
[2019-03-15] MEDS: lisinopril 20mg tablet PO SCH (08:03)
[2019-03-15 11:00] VITALS: BP 157/41
--- NOTE | 2019-03-15 15:43 | NUR ---
Reassessment: Pt PO continues to fluctuate though more steady 60-75% avg meals meeting needs. Germain r/t advanced dementia. LBM 03/11 receiving MoM; LENA d/w RN regarding routine bowel care per MD approval. Will continue to monitor. Recommendations: 1) Continue with regular diet 2) Routine bowel care 3) Wt per rx Addendum: 03/15/19 at [address] Amended: Links added.
--- NOTE | 2019-03-15 18:28 | NUR ---
Problems reprioritized. Patient report given, questions answered & plan of care reviewed with Katerina WILDER and Bonny WILDER
--- NOTE | 2019-03-15 18:32 | NUR ---
Patient in room [facility]. I have received report from TINA Oden and had the opportunity to ask questions and assume patient care.
[2019-03-15 19:46] VITALS: BP 131/38
[2019-03-15] MEDS: QUEtiapine 25mg tablet PO SCH (20:28)
[2019-03-15] MEDS: ziprasidone IM 20mg inj **IM only IM PRN (22:55)
--- NOTE | 2019-03-15 23:02 | NUR ---
Pt agitated, hitting herself in the head, crawling on the floor, thinks we are out to hurt her, is being uncooperative for sitter. Medication administered, will continue to monitor.
--- NOTE | 2019-03-16 06:27 | NUR ---
Problems reprioritized. Patient report given, questions answered & plan of care reviewed with TINA Torres.
[2019-03-16 07:30] VITALS: BP 141/77
[2019-03-16 08:00] VITALS: BP 141/77
[2019-03-16] MEDS: lisinopril 20mg tablet PO SCH (08:00)
[2019-03-16] MEDS: heparin, porcine 5000 units/ml vial SQ SCH ×2 (08:00→21:07)
[2019-03-16] MEDS: amLODIPine 5mg tablet PO SCH (08:00)
[2019-03-16] MEDS: K and/or MAG REPLACEMENT MC SCH (08:00)
[2019-03-16 10:16] VITALS: BP 120/39
[2019-03-16 16:16] VITALS: BP 154/48
--- NOTE | 2019-03-16 18:31 | NUR ---
Problems reprioritized. Patient report given, questions answered & plan of care reviewed with TINA Rajput.
[2019-03-16] MEDS: QUEtiapine 25mg tablet PO SCH (21:07)
--- NOTE | 2019-03-17 06:49 | NUR ---
Problems reprioritized. Patient report given, questions answered & plan of care reviewed with OMEGA. Addendum: 03/17/19 at 0649 by Akil Fowler RN Amended: Links added.
--- NOTE | 2019-03-17 07:18 | NUR ---
Patient in room [facility]. I have received report from Regulo WILDER and had the opportunity to ask questions and assume patient care.
[2019-03-17 08:00] VITALS: BP 150/63
[2019-03-17] MEDS: K and/or MAG REPLACEMENT MC SCH (08:00)
[2019-03-17] MEDS: amLODIPine 5mg tablet PO SCH (09:25)
[2019-03-17] MEDS: lisinopril 20mg tablet PO SCH (09:28)
[2019-03-17] MEDS: heparin, porcine 5000 units/ml vial SQ SCH ×2 (09:32→20:29)
[2019-03-17 12:00] VITALS: BP 138/74
[2019-03-17 18:00] VITALS: BP 149/67
[2019-03-17 18:11] LABS: CLARITY,URINE CLEAR (Clear); COLOR,URINE YELLOW (Yellow); GLUCOSE, URINE NEGATIVE (Neg); KETONES,URINE NEGATIVE (Neg); LEUKOCYTE ESTERASE ,URINE SMALL (Neg); NITRITES, URINE NEGATIVE (Neg); OCCULT BLOOD,URINE SMALL (Neg); PROTEIN,URINE NEGATIVE (Neg); UROBILINOGEN,URINE 0.2 E.U/dL (0.2-1.0)
[2019-03-17 18:19] LABS: UA COLLECTION TYPE NON-SPECIFIED
--- NOTE | 2019-03-17 18:19 | NUR ---
Patient in room [facility]. I have received report from TINA Greco and had the opportunity to ask questions and assume patient care. Addendum: 03/17/19 at 1821 by Elmer Cain RN this is the wrong patient. Jim getting report from TINA Menchaca
[2019-03-17 18:20] LABS: BACTERIA,URINE NONE SEEN /HPF (Neg); RBC,URINE 0-2 /HPF (0-2)
[2019-03-17 18:21] LABS: RENAL CELLS, URINE FEW /HPF; SQUAMOUS EPITHELIAL CELL,UR FEW /LPF (FEW); TRANSITIONAL EPI CELLS,URINE FEW /HPF; WBC CLUMPS,URINE MODERATE /HPF (NEGATIVE)
--- NOTE | 2019-03-17 18:40 | NUR ---
Patient in room [facility]. I have received report from Bernarda RN and SharonRN and had the opportunity to ask questions and assume patient care.
--- NOTE | 2019-03-17 18:44 | NUR ---
Problems reprioritized. Patient report given, questions answered & plan of care reviewed with Elmer WILDER.
[2019-03-17] MEDS: QUEtiapine 25mg tablet PO SCH (20:26)
[2019-03-18] VITALS: BP 143/79
--- NOTE | 2019-03-18 06:24 | NUR ---
Problems reprioritized. Patient report given, questions answered & plan of care reviewed with TINA Oden.
--- NOTE | 2019-03-18 06:29 | NUR ---
Patient in room [facility]. I have received report from Elmer WILDER and had the opportunity to ask questions and assume patient care.
[2019-03-18 07:00] VITALS: BP 127/86
[2019-03-18] MEDS: heparin, porcine 5000 units/ml vial SQ SCH ×3 (08:00→21:17)
[2019-03-18] MEDS: K and/or MAG REPLACEMENT MC SCH (08:00)
[2019-03-18] MEDS: lisinopril 20mg tablet PO SCH (09:30)
[2019-03-18] MEDS: amLODIPine 5mg tablet PO SCH (09:30)
[2019-03-18 11:00] VITALS: BP 121/52
--- NOTE | 2019-03-18 18:57 | NUR ---
Problems reprioritized. Patient report given, questions answered & plan of care reviewed with Kassandra WILDER.
--- NOTE | 2019-03-18 18:58 | NUR ---
Patient in room [facility]. I have received report from BRANDY WILDER and had the opportunity to ask questions and assume patient care.
[2019-03-18 20:00] VITALS: BP 98/71
[2019-03-18] MEDS: QUEtiapine 25mg tablet PO SCH (21:16)
[2019-03-19] VITALS: BP 156/60
--- NOTE | 2019-03-19 06:24 | NUR ---
Problems reprioritized. Patient report given, questions answered & plan of care reviewed with FABRIZIO WILDER.
[2019-03-19 08:00] VITALS: BP 109/47
[2019-03-19] MEDS: K and/or MAG REPLACEMENT MC SCH (08:00)
[2019-03-19] MEDS: amLODIPine 5mg tablet PO SCH (08:23)
[2019-03-19] MEDS: lisinopril 20mg tablet PO SCH (08:23)
[2019-03-19] MEDS: heparin, porcine 5000 units/ml vial SQ SCH ×2 (08:28→20:13)
--- NOTE | 2019-03-19 10:44 | NUR ---
Reassessment: Pt with significant improvement of PO intake documented with 100% however some fluctuations of 50-75%, likely meeting nutrient needs at this time. Pt continues with sitter and is awaiting placement per MD notes. LBM 03/17. Will continue to follow. Recommendations: 1) Continue with regular diet 2) Routine bowel care 3) Wt per rx Addendum: 03/19/19 at [address] Amended: Links added.
[2019-03-19 11:00] VITALS: BP 104/43
--- NOTE | 2019-03-19 19:02 | NUR ---
Problems reprioritized. Patient report given, questions answered & plan of care reviewed with BRAYDEN OWEN RN.
--- NOTE | 2019-03-19 19:03 | NUR ---
Patient in room [facility]. I have received report from FABRIZIO WILDER and had the opportunity to ask questions and assume patient care.
[2019-03-19 20:00] VITALS: BP 125/80
[2019-03-19] MEDS: QUEtiapine 25mg tablet PO SCH (20:13)
[2019-03-20] VITALS: BP 135/61
--- NOTE | 2019-03-20 06:30 | NUR ---
Problems reprioritized. Patient report given, questions answered & plan of care reviewed with CASSIE WILDER AND HUSAM WILDER.
--- NOTE | 2019-03-20 06:40 | NUR ---
Patient in room [facility]. I have received report from Slime WILDER and had the opportunity to ask questions and assume patient care.
[2019-03-20 08:00] VITALS: BP 115/47
[2019-03-20] MEDS: heparin, porcine 5000 units/ml vial SQ SCH ×2 (08:00→20:00)
[2019-03-20] MEDS: amLODIPine 5mg tablet PO SCH (08:00)
[2019-03-20] MEDS: K and/or MAG REPLACEMENT MC SCH (08:00)
[2019-03-20] MEDS: lisinopril 20mg tablet PO SCH (08:00)
[2019-03-20 12:00] VITALS: BP 114/66
--- NOTE | 2019-03-20 18:13 | NUR ---
Problems reprioritized. Patient report given, questions answered & plan of care reviewed with Slime WILDER.
--- NOTE | 2019-03-20 18:30 | NUR ---
Patient in room [facility]. I have received report from CASSIE WILDER AND HUSAM WILDER and had the opportunity to ask questions and assume patient care.
[2019-03-20] MEDS: ziprasidone IM 20mg inj **IM only IM PRN (19:22)
[2019-03-20 20:00] VITALS: BP 120/55
[2019-03-20] MEDS: QUEtiapine 25mg tablet PO SCH (20:07)
[2019-03-21] VITALS: BP 158/58
--- NOTE | 2019-03-21 06:13 | NUR ---
Problems reprioritized. Patient report given, questions answered & plan of care reviewed with CASSIE WILDER AND HUSAM WILDER.
--- NOTE | 2019-03-21 06:41 | NUR ---
Patient in room [facility]. I have received report from Slime WILDER and had the opportunity to ask questions and assume patient care.
[2019-03-21 08:00] VITALS: BP 114/42
[2019-03-21] MEDS: K and/or MAG REPLACEMENT MC SCH (08:00)
[2019-03-21] MEDS: lisinopril 20mg tablet PO SCH (09:33)
[2019-03-21] MEDS: heparin, porcine 5000 units/ml vial SQ SCH ×2 (09:34→20:00)
[2019-03-21] MEDS: amLODIPine 5mg tablet PO SCH (09:40)
[2019-03-21 11:00] VITALS: BP 141/79
--- NOTE | 2019-03-21 12:47 | NUR ---
Pt has not have a BM since 03/17. Attempted to give MOM prn Pt refused.
--- NOTE | 2019-03-21 18:41 | NUR ---
Problems reprioritized. Patient report given, questions answered & plan of care reviewed with Slime WILDER.
--- NOTE | 2019-03-21 18:43 | NUR ---
Patient in room [facility]. I have received report from CASSIE WILDER AND HUSAM WILDER and had the opportunity to ask questions and assume patient care.
[2019-03-21 20:00] VITALS: BP 125/72
[2019-03-21] MEDS: QUEtiapine 25mg tablet PO SCH (20:16)
[2019-03-21] MEDS: acetaminophen 325mg tablet PO PRN (22:46)
[2019-03-22] VITALS: BP 102/50
--- NOTE | 2019-03-22 06:10 | NUR ---
Problems reprioritized. Patient report given, questions answered & plan of care reviewed with Audrey Ventura RN. Addendum: 03/22/19 at 0716 by Ning Lorenzo RN Should read: Patient in room [facility]. I have received report from Audrey Ventura RN and had the opportunity to ask questions and assume patient care.
[2019-03-22 06:30] VITALS: BP 129/57
[2019-03-22] MEDS: K and/or MAG REPLACEMENT MC SCH (07:04)
[2019-03-22] MEDS: lisinopril 20mg tablet PO SCH (09:49)
[2019-03-22] MEDS: heparin, porcine 5000 units/ml vial SQ SCH ×2 (09:50→19:44)
[2019-03-22] MEDS: amLODIPine 5mg tablet PO SCH (09:50)
[2019-03-22 11:00] VITALS: BP 140/82
[2019-03-22 18:00] VITALS: BP 135/65
--- NOTE | 2019-03-22 18:45 | NUR ---
Problems reprioritized. Patient report given, questions answered & plan of care reviewed with TINA De La Rosa.
[2019-03-22] MEDS: QUEtiapine 25mg tablet PO SCH (19:45)
--- NOTE | 2019-03-22 20:32 | NUR ---
Patient in room [facility]. I have received report from TINA Barclay and had the opportunity to ask questions and assume patient care. Addendum: 03/22/19 at 2033 by Estrella Siddiqi RN Amended: Links added.
[2019-03-22 23:50] VITALS: BP 157/79
--- NOTE | 2019-03-23 06:25 | NUR ---
Problems reprioritized. Patient report given, questions answered & plan of care reviewed with TINA Barclay. Addendum: 03/23/19 at 0626 by Estrella Siddiqi RN Amended: Links added.
[2019-03-23 06:30] VITALS: BP 112/57
--- NOTE | 2019-03-23 06:40 | NUR ---
Patient in room [facility]. I have received report from TINA De La Rosa and had the opportunity to ask questions and assume patient care.
[2019-03-23] MEDS: K and/or MAG REPLACEMENT MC SCH (07:51)
[2019-03-23] MEDS: amLODIPine 5mg tablet PO SCH (09:44)
[2019-03-23] MEDS: lisinopril 20mg tablet PO SCH (09:44)
[2019-03-23] MEDS: heparin, porcine 5000 units/ml vial SQ SCH ×2 (09:45→20:00)
[2019-03-23] MEDS: ziprasidone 20mg capsule PO PRN (15:48)
--- NOTE | 2019-03-23 18:30 | NUR ---
Problems reprioritized. Patient report given, questions answered & plan of care reviewed with TINA De La Rosa.
[2019-03-23 20:00] VITALS: BP 123/61
[2019-03-23] MEDS: QUEtiapine 25mg tablet PO SCH (20:33)
--- NOTE | 2019-03-23 21:31 | NUR ---
Patient in room [facility]. I have received report from TINA Barclay and had the opportunity to ask questions and assume patient care. Addendum: 03/23/19 at 2132 by Estrella Siddiqi RN Amended: Links added.
[2019-03-24 00:26] VITALS: BP 120/64
--- NOTE | 2019-03-24 06:24 | NUR ---
Problems reprioritized. Patient report given, questions answered & plan of care reviewed with TINA Barclay. Addendum: 03/24/19 at 0625 by Estrella Siddiqi RN Amended: Links added.
--- NOTE | 2019-03-24 06:25 | NUR ---
Patient in room [facility]. I have received report from TINA De La Rosa and had the opportunity to ask questions and assume patient care.
[2019-03-24 06:30] VITALS: BP 150/62
[2019-03-24] MEDS: K and/or MAG REPLACEMENT MC SCH (08:00)
[2019-03-24 11:00] VITALS: BP 143/52
[2019-03-24] MEDS: amLODIPine 5mg tablet PO SCH (11:04)
[2019-03-24] MEDS: heparin, porcine 5000 units/ml vial SQ SCH ×2 (11:05→20:00)
--- NOTE | 2019-03-24 12:50 | NUR ---
Problems reprioritized. Patient report given, questions answered & plan of care reviewed with TINA Heart.
--- NOTE | 2019-03-24 13:03 | NUR ---
Patient in room [facility]. I have received report from Ning WILDER and had the opportunity to ask questions and assume patient care.
[2019-03-24] MEDS: ziprasidone 20mg capsule PO PRN (15:52)
--- NOTE | 2019-03-24 16:57 | NUR ---
Reassessment: Pt PO fluctuates w/ encephalopathy r/t dementia mostly 75-100% avg meals meeting needs. LBM 03/22. No nutrition concerns at this time. Will continue to monitor. Recommendations: 1) Continue with regular diet 2) Routine bowel care 3) Wt per rx Addendum: 03/24/19 at [address] Amended: Links added.
--- NOTE | 2019-03-24 18:28 | NUR ---
Problems reprioritized. Patient report given, questions answered & plan of care reviewed with Estrella WILDER.
--- NOTE | 2019-03-24 19:30 | NUR ---
Patient in room [facility]. I have received report from TINA Heart and had the opportunity to ask questions and assume patient care. Addendum: 03/24/19 at 1933 by Estrella Siddiqi RN Amended: Links added.
[2019-03-24 20:00] VITALS: BP 129/58
[2019-03-24] MEDS: QUEtiapine 25mg tablet PO SCH (22:24)
--- NOTE | 2019-03-25 06:28 | NUR ---
Problems reprioritized. Patient report given, questions answered & plan of care reviewed with TINA Shepard. Addendum: 03/25/19 at 0628 by Estrella Siddiqi RN Amended: Links added.
[2019-03-25 07:00] VITALS: BP 126/95
[2019-03-25] MEDS: K and/or MAG REPLACEMENT MC SCH (07:33)
[2019-03-25] MEDS: amLODIPine 5mg tablet PO SCH (07:57)
[2019-03-25] MEDS: heparin, porcine 5000 units/ml vial SQ SCH ×2 (07:58→22:00)
[2019-03-25 11:59] VITALS: BP 136/48
--- NOTE | 2019-03-25 18:29 | NUR ---
Problems reprioritized. Patient report given, questions answered & plan of care reviewed with shayy bruner.
--- NOTE | 2019-03-25 18:30 | NUR ---
Patient in room [facility]. I have received report from TINA Shepard and had the opportunity to ask questions and assume patient care. Sitter at bedside, pt sitting up in bed eating dinner, calm and pleasant. Addendum: 03/25/19 at 1847 by Roman Mauricio RN Amended: Links added.
[2019-03-25 19:47] VITALS: BP 121/64
[2019-03-25] MEDS: QUEtiapine 25mg tablet PO SCH (21:58)
[2019-03-25 23:40] VITALS: BP 149/69
--- NOTE | 2019-03-26 06:30 | NUR ---
Patient in room [facility]. I have received report from TINA Miner and had the opportunity to ask questions and assume patient care.
--- NOTE | 2019-03-26 06:30 | NUR ---
Problems reprioritized. Patient report given, questions answered & plan of care reviewed with TINA Hollins. Addendum: 03/26/19 at 0634 by Roman Mauricio RN Amended: Links added.
[2019-03-26 07:30] VITALS: BP 113/44
[2019-03-26] MEDS: QUEtiapine 25mg tablet PO SCH ×2 (07:32→21:32)
[2019-03-26] MEDS: amLODIPine 5mg tablet PO SCH (07:33)
[2019-03-26] MEDS: heparin, porcine 5000 units/ml vial SQ SCH ×2 (07:39→20:00)
[2019-03-26] MEDS: K and/or MAG REPLACEMENT MC SCH (08:00)
[2019-03-26 11:17] VITALS: BP 102/44
[2019-03-26 18:00] VITALS: BP 142/62
--- NOTE | 2019-03-26 18:22 | NUR ---
Problems reprioritized. Patient report given, questions answered & plan of care reviewed with TINA Miner.
--- NOTE | 2019-03-26 18:25 | NUR ---
Patient in room [facility]. I have received report from TINA Hollins and had the opportunity to ask questions and assume patient care. Addendum: 03/27/19 at 0106 by Roman Mauricio RN Amended: Links added.
[2019-03-26] MEDS: ziprasidone 20mg capsule PO PRN (21:32)
--- NOTE | 2019-03-26 21:40 | NUR ---
PT AMB IN ROOM SPILLING COFFEE, BECOMING VERY ANGRY, STATES WANTS TO GO TO LOWER LEVEL, VERY CONFUSED. PT NEEDED MUCH ENCOURAGEMENT TO AMB BACK TO ROOM, NOW SITTING UP IN BED WITH SITTER AT BEDSIDE. PT DID BRIEFLY PUSH MY SHOULDER. Addendum: 03/26/19 at 2142 by Roman Mauricio RN Amended: Links added.
[2019-03-26 23:30] VITALS: BP 149/51
--- NOTE | 2019-03-27 06:29 | NUR ---
Problems reprioritized. Patient report given, questions answered & plan of care reviewed with TINA Hollins. Addendum: 03/27/19 at 0630 by Roman Mauricio RN Amended: Links added.
--- NOTE | 2019-03-27 06:29 | NUR ---
Patient in room [facility]. I have received report from TINA Miner and had the opportunity to ask questions and assume patient care.
[2019-03-27] MEDS: heparin, porcine 5000 units/ml vial SQ SCH ×2 (08:00→20:00)
[2019-03-27] MEDS: K and/or MAG REPLACEMENT MC SCH (08:00)
[2019-03-27 08:06] VITALS: BP 98/56
[2019-03-27] MEDS: QUEtiapine 25mg tablet PO SCH ×2 (08:11→19:58)
[2019-03-27] MEDS: amLODIPine 5mg tablet PO SCH (08:11)
[2019-03-27 11:18] VITALS: BP 135/54
--- NOTE | 2019-03-27 18:41 | NUR ---
Problems reprioritized. Patient report given, questions answered & plan of care reviewed with TINA Beavers.
[2019-03-27] MEDS: ziprasidone 20mg capsule PO PRN (19:57)
[2019-03-28] VITALS: BP 149/75
--- NOTE | 2019-03-28 06:38 | NUR ---
Patient in room [facility]. I have received report from TINA Beavers and had the opportunity to ask questions and assume patient care. Patient currently sleeping in bed, bed locked and low, call light in reach, no acute distress, sitter in room, will continue to monitor.
[2019-03-28] MEDS: K and/or MAG REPLACEMENT MC SCH (08:00)
[2019-03-28] MEDS: amLODIPine 5mg tablet PO SCH (08:04)
[2019-03-28] MEDS: QUEtiapine 25mg tablet PO SCH ×2 (08:04→20:58)
[2019-03-28] MEDS: heparin, porcine 5000 units/ml vial SQ SCH ×2 (08:04→20:58)
[2019-03-28 08:13] VITALS: BP 119/46
[2019-03-28 11:38] VITALS: BP 110/47
--- NOTE | 2019-03-28 18:23 | NUR ---
Patient in room [facility]. I have received report from TINA Crowley and had the opportunity to ask questions and assume patient care.
--- NOTE | 2019-03-28 18:30 | NUR ---
Problems reprioritized. Patient report given, questions answered & plan of care reviewed with TINA Beavers.
[2019-03-28 19:00] VITALS: BP 154/74
[2019-03-29 00:32] VITALS: BP 163/84
[2019-03-29] MEDS: magnesium hydroxide 30ml (MOM) UD suspension PO PRN (00:52)
--- NOTE | 2019-03-29 06:26 | NUR ---
Problems reprioritized. Patient report given, questions answered & plan of care reviewed with TINA Oden.
--- NOTE | 2019-03-29 06:42 | NUR ---
Patient in room [facility]. I have received report from Ruthann WILDER and Bonny RN and had the opportunity to ask questions and assume patient care.
[2019-03-29 07:00] VITALS: BP 138/78
[2019-03-29] MEDS: heparin, porcine 5000 units/ml vial SQ SCH ×2 (07:25→20:43)
[2019-03-29] MEDS: QUEtiapine 25mg tablet PO SCH ×2 (07:25→20:32)
[2019-03-29] MEDS: amLODIPine 5mg tablet PO SCH (07:25)
[2019-03-29] MEDS: K and/or MAG REPLACEMENT MC SCH (08:00)
[2019-03-29 12:00] VITALS: BP 107/57
--- NOTE | 2019-03-29 15:26 | NUR ---
Reassessment: Pt PO 100% meals at this time meeting needs. LBM 03/26. No nutrition concerns at this time. Will continue to monitor. Recommendations: 1) Continue with regular diet 2) Routine bowel care 3) Wt per rx Addendum: 03/29/19 at [address] Amended: Links added.
--- NOTE | 2019-03-29 18:20 | NUR ---
[facility] in room [facility]. [facility] and had the opportunity to ask questions and assume patient care.
--- NOTE | 2019-03-29 18:36 | NUR ---
Problems reprioritized. Patient report given, questions answered & plan of care reviewed with Bonny RN and Katerina RN.
[2019-03-29 20:30] VITALS: BP 165/76
[2019-03-30] VITALS: BP 152/69
--- NOTE | 2019-03-30 06:34 | NUR ---
Problems reprioritized. Patient report given, questions answered & plan of care reviewed with TINA Shepard.
[2019-03-30] MEDS: K and/or MAG REPLACEMENT MC SCH (06:47)
[2019-03-30] MEDS: amLODIPine 5mg tablet PO SCH (07:16)
[2019-03-30] MEDS: QUEtiapine 25mg tablet PO SCH ×2 (07:19→20:40)
[2019-03-30] MEDS: heparin, porcine 5000 units/ml vial SQ SCH ×2 (07:22→20:43)
[2019-03-30 08:00] VITALS: BP 107/40
--- NOTE | 2019-03-30 14:31 | NUR ---
Attempted to see pt regarding nail care consultation. Upon waking pt, pt seemed confused and attempts at communication were unsuccessful. Pt was stating something about not being able to see, and when clarifying that WOC was here to clip her nails, pt attempted self-injurous behaviour of hitting herself on the head with her fists. Attending sitter intervened and WOC was deferred due to safety issues.
--- NOTE | 2019-03-30 18:28 | NUR ---
Problems reprioritized. Patient report given, questions answered & plan of care reviewed with BRAYDEN OWEN RN.
--- NOTE | 2019-03-30 18:35 | NUR ---
Patient in room [facility]. I have received report from DIEGO WILDER and had the opportunity to ask questions and assume patient care.
[2019-03-30 20:00] VITALS: BP 138/69
[2019-03-31] VITALS: BP 147/63
--- NOTE | 2019-03-31 06:30 | NUR ---
Patient in room [facility]. I have received report from Audrey Ventura RN and had the opportunity to ask questions and assume patient care.
--- NOTE | 2019-03-31 06:30 | NUR ---
Problems reprioritized. Patient report given, questions answered & plan of care reviewed with GEORGINA RN.
[2019-03-31 07:45] VITALS: BP 158/66
[2019-03-31] MEDS: K and/or MAG REPLACEMENT MC SCH (08:00)
[2019-03-31] MEDS: heparin, porcine 5000 units/ml vial SQ SCH ×2 (08:00→20:18)
[2019-03-31] MEDS: amLODIPine 5mg tablet PO SCH (08:23)
[2019-03-31] MEDS: QUEtiapine 25mg tablet PO SCH ×2 (08:24→20:17)
[2019-03-31 11:45] VITALS: BP 155/101
[2019-03-31 11:46] LABS: BASOPHILS % (AUTO) 0.4 % (0-1); EOSINOPHILS # (AUTO) 0.3 X10'3 (0-0.9); EOSINOPHILS % (AUTO) 6.9 % (0-6); HEMOGLOBIN 13.3 g/dl (12.0-16.0); LYMPHOCYTES # (AUTO) 2.1 X10'3 (1.1-4.8); LYMPHOCYTES % (AUTO) 41.8 % (21-51); MEAN CORPUSCULAR HEMOGLOBIN 31.9 PG (27.0-31.0); MEAN CORPUSCULAR HGB CONC 34.1 g/dL (33.0-36.5); MEAN CORPUSCULAR VOLUME 93.6 FL (78-98); MEAN PLATELET VOLUME 8.1 FL (7.4-10.4); MONOCYTES # (AUTO) 0.4 X10'3 (0-0.9); MONOCYTES % (AUTO) 8.9 % (2-12); NEUTROPHILS # (AUTO) 2.1 X10'3 (1.8-7.7); PLATELET COUNT 212 X10'3 (140-440); RED BLOOD COUNT 4.17 X10'6 (4.20-5.60); RED CELL DISTRIBUTION WIDTH 13.1 % (11.5-14.5)
--- NOTE | 2019-03-31 18:11 | NUR ---
Problems reprioritized. Patient report given, questions answered & plan of care reviewed with Audrey Ventura RN.
--- NOTE | 2019-03-31 18:30 | NUR ---
Patient in room [facility]. I have received report from GEORGINA WILDER and had the opportunity to ask questions and assume patient care.
[2019-03-31 20:00] VITALS: BP 127/86
[2019-03-31] MEDS: ziprasidone 20mg capsule PO PRN (23:23)
[2019-04-01] VITALS: BP 159/77
--- NOTE | 2019-04-01 06:23 | NUR ---
Problems reprioritized. Patient report given, questions answered & plan of care reviewed with BRAYDEN OWEN RN.
[2019-04-01 07:49] VITALS: BP 132/62
[2019-04-01] MEDS: K and/or MAG REPLACEMENT MC SCH (08:00)
[2019-04-01] MEDS: heparin, porcine 5000 units/ml vial SQ SCH ×2 (09:49→22:24)
[2019-04-01] MEDS: QUEtiapine 25mg tablet PO SCH ×2 (09:50→22:21)
[2019-04-01] MEDS: amLODIPine 5mg tablet PO SCH (09:50)
[2019-04-01] MEDS: ziprasidone 20mg capsule PO PRN (10:10)
[2019-04-01 12:23] VITALS: BP 92/50
--- NOTE | 2019-04-01 18:03 | NUR ---
Patient in room [facility]. I have received report from BRAYDEN OWEN RN and had the opportunity to ask questions and assume patient care.
--- NOTE | 2019-04-01 18:30 | NUR ---
Patient in room [facility]. I have received report from JOYCELYN WILDER and had the opportunity to ask questions and assume patient care.
[2019-04-01 20:00] VITALS: BP 136/55
[2019-04-02] VITALS: BP 143/74
[2019-04-02] MEDS: ziprasidone 20mg capsule PO PRN (01:25)
--- NOTE | 2019-04-02 06:16 | NUR ---
Problems reprioritized. Patient report given, questions answered & plan of care reviewed with JOYCELYN WILDER.
--- NOTE | 2019-04-02 06:24 | NUR ---
Patient in room [facility]. I have received report from BRAYDEN OWEN RN and had the opportunity to ask questions and assume patient care.
[2019-04-02 07:36] VITALS: BP 104/55
[2019-04-02] MEDS: K and/or MAG REPLACEMENT MC SCH (08:00)
[2019-04-02] MEDS: amLODIPine 5mg tablet PO SCH (09:39)
[2019-04-02] MEDS: QUEtiapine 25mg tablet PO SCH ×2 (09:39→20:53)
[2019-04-02] MEDS: heparin, porcine 5000 units/ml vial SQ SCH ×2 (09:39→20:53)
[2019-04-02 15:20] VITALS: BP 146/69
[2019-04-02 18:00] VITALS: BP 146/85
--- NOTE | 2019-04-02 18:22 | NUR ---
GAVE REPORT TO UYEN WILDER
--- NOTE | 2019-04-02 18:23 | NUR ---
report received from TINA Casey
[2019-04-03] VITALS: BP 150/82
--- NOTE | 2019-04-03 06:12 | NUR ---
Patient in room [facility]. I have received report from Casey WILDER and had the opportunity to ask questions and assume patient care.
--- NOTE | 2019-04-03 06:13 | NUR ---
report given to TINA Oden
[2019-04-03 07:00] VITALS: BP 144/53
[2019-04-03] MEDS: amLODIPine 5mg tablet PO SCH (07:15)
[2019-04-03] MEDS: QUEtiapine 25mg tablet PO SCH ×2 (07:15→20:06)
[2019-04-03] MEDS: heparin, porcine 5000 units/ml vial SQ SCH ×2 (07:15→20:00)
[2019-04-03] MEDS: ziprasidone 20mg capsule PO PRN ×2 (07:15→20:06)
[2019-04-03] MEDS: K and/or MAG REPLACEMENT MC SCH (08:00)
[2019-04-03 11:00] VITALS: BP 142/61
--- NOTE | 2019-04-03 11:46 | NUR ---
Reassessment: Pt with slightly fluctuating PO intake, occasionally with 50-75% PO intake however overall 75-100% meeting nutrient needs. Pt continues with a sitter and is awaiting placement. [facility] 04/[facility]. No nutrition concerns at this time. Will continue to follow. Recommendations: 1) Continue with regular diet 2) Routine bowel care 3) Wt per rx Addendum: 04/03/19 at [address] Amended: Links added.
--- NOTE | 2019-04-03 18:09 | NUR ---
Problems reprioritized. Patient report given, questions answered & plan of care reviewed with Casey WILDER.
[2019-04-04] VITALS: BP 104/63
--- NOTE | 2019-04-04 00:24 | NUR ---
patient was increasingly agitated earlier with sitter, attempts to redirect and calm down were unsuccesful, PRN meds given with scheduled night medications at 2007. patient was later ambulating halls with sitter and second aide. now resting comfortably in bed asleep
--- NOTE | 2019-04-04 06:33 | NUR ---
report given to TINA Kennedy
--- NOTE | 2019-04-04 06:35 | NUR ---
Patient in room [facility]. I have received report from TINA Peña and had the opportunity to ask questions and assume patient care.
[2019-04-04 06:55] VITALS: BP 140/61
[2019-04-04] MEDS: K and/or MAG REPLACEMENT MC SCH (08:00)
[2019-04-04] MEDS: amLODIPine 5mg tablet PO SCH (08:46)
[2019-04-04] MEDS: QUEtiapine 25mg tablet PO SCH ×2 (08:46→21:11)
[2019-04-04] MEDS: heparin, porcine 5000 units/ml vial SQ SCH ×2 (08:47→20:00)
[2019-04-04 11:42] VITALS: BP 100/55
--- NOTE | 2019-04-04 18:07 | NUR ---
Problems reprioritized. Patient report given, questions answered & plan of care reviewed with TINA Peña.
--- NOTE | 2019-04-04 18:32 | NUR ---
Report received from Brent RN
[2019-04-04 20:19] VITALS: BP 119/68
--- NOTE | 2019-04-04 22:30 | NUR ---
Patient in room [facility]. I have received report from nurse UYEN WILDER and had the opportunity to ask questions and assume patient care. Addendum: 04/05/19 at 0518 by Radha Ortiz RN Amended: Links added.
--- NOTE | 2019-04-04 23:35 | NUR ---
Report given to TINA Garcia
[2019-04-05] VITALS: BP 122/58
--- NOTE | 2019-04-05 06:30 | NUR ---
Patient in room [facility]. I have received report from Radha WILDER and had the opportunity to ask questions and assume patient care.
--- NOTE | 2019-04-05 06:40 | NUR ---
Problems reprioritized. Patient report given, questions answered & plan of care reviewed with Juan WILDER. Addendum: 04/05/19 at 0647 by Radha Ortiz RN Amended: Links added.
[2019-04-05 08:00] VITALS: BP 129/70
[2019-04-05] MEDS: QUEtiapine 25mg tablet PO SCH ×2 (08:00→21:02)
[2019-04-05] MEDS: amLODIPine 5mg tablet PO SCH (08:00)
[2019-04-05] MEDS: K and/or MAG REPLACEMENT MC SCH (08:00)
[2019-04-05] MEDS: heparin, porcine 5000 units/ml vial SQ SCH ×2 (08:00→20:00)
[2019-04-05 11:00] VITALS: BP 115/52
[2019-04-05 18:30] VITALS: BP 143/64
--- NOTE | 2019-04-05 18:38 | NUR ---
Problems reprioritized. Patient report given, questions answered & plan of care reviewed with
[2019-04-06 08:00] VITALS: BP 145/66
[2019-04-06] MEDS: QUEtiapine 25mg tablet PO SCH ×3 (08:00→21:13)
[2019-04-06] MEDS: heparin, porcine 5000 units/ml vial SQ SCH ×2 (08:00→21:14)
[2019-04-06] MEDS: K and/or MAG REPLACEMENT MC SCH (08:00)
[2019-04-06] MEDS: amLODIPine 5mg tablet PO SCH ×2 (08:00→12:11)
[2019-04-06 15:08] LABS: BASOPHILS % (AUTO) 0.5 % (0-1); EOSINOPHILS # (AUTO) 0.3 X10'3 (0-0.9); EOSINOPHILS % (AUTO) 5.9 % (0-6); HEMATOCRIT 34.6 % (35.0-45.0); HEMOGLOBIN 11.7 g/dl (12.0-16.0); LYMPHOCYTES # (AUTO) 1.5 X10'3 (1.1-4.8); LYMPHOCYTES % (AUTO) 29.5 % (21-51); MEAN CORPUSCULAR HEMOGLOBIN 31.9 PG (27.0-31.0); MEAN CORPUSCULAR HGB CONC 33.8 g/dL (33.0-36.5); MEAN CORPUSCULAR VOLUME 94.4 FL (78-98); MEAN PLATELET VOLUME 7.7 FL (7.4-10.4); MONOCYTES # (AUTO) 0.4 X10'3 (0-0.9); MONOCYTES % (AUTO) 8.4 % (2-12); NEUTROPHILS # (AUTO) 2.8 X10'3 (1.8-7.7); NEUTROPHILS % (AUTO) 55.7 % (42-75); PLATELET COUNT 189 X10'3 (140-440); RED BLOOD COUNT 3.67 X10'6 (4.20-5.60); RED CELL DISTRIBUTION WIDTH 13.1 % (11.5-14.5)
[2019-04-06 15:21] LABS: ALANINE AMINOTRANSFERASE 20 U/L (12-78); ALBUMIN 3.2 G/DL (3.4-5.0); ALBUMIN/GLOBULIN RATIO 0.9 (1.1-1.5); ALKALINE PHOSPHATASE 70 IU/L (46-116); ANION GAP 8 (8-16); ASPARTATE AMINO TRANSFERASE 11 U/L (10-37); BILIRUBIN,TOTAL 0.2 MG/DL (0.1-1.0); BLOOD UREA NITROGEN 23 MG/DL (7-18); BUN/CREATININE RATIO 21.5 (6.6-38.0); CALCIUM 8.7 MG/DL (8.5-10.1); CHLORIDE 106 MMOL/L (99-107); CREATININE 1.07 MG/DL (0.40-0.90); GLUCOSE 117 MG/DL (70-104); MAGNESIUM 1.9 MG/DL (1.5-2.4); SODIUM 141 MMOL/L (135-145); TOTAL PROTEIN 6.7 G/DL (6.4-8.2); eGFR 50 ML/MIN
--- NOTE | 2019-04-06 18:19 | NUR ---
Patient in room [facility]. I have received report from Winifred Perez RN and had the opportunity to ask questions and assume patient care.
--- NOTE | 2019-04-06 18:34 | NUR ---
Problems reprioritized. Patient report given, questions answered & plan of care reviewed with TINA MCCRACKEN.
[2019-04-06 19:22] VITALS: BP 140/70
[2019-04-07 00:56] VITALS: BP 136/63
--- NOTE | 2019-04-07 06:31 | NUR ---
Problems reprioritized. Patient report given, questions answered & plan of care reviewed with TINA Oh.
[2019-04-07 07:05] VITALS: BP 134/60
[2019-04-07] MEDS: amLODIPine 5mg tablet PO SCH (08:40)
[2019-04-07] MEDS: QUEtiapine 25mg tablet PO SCH ×2 (08:40→20:11)
[2019-04-07] MEDS: heparin, porcine 5000 units/ml vial SQ SCH ×2 (08:41→20:00)
[2019-04-07] MEDS: K and/or MAG REPLACEMENT MC SCH (08:44)
--- NOTE | 2019-04-07 10:00 | NUR ---
Discussed labs with . No labs ordered for today.
[2019-04-07 11:18] VITALS: BP 142/82
--- NOTE | 2019-04-07 12:40 | NUR ---
Pt. refused to let this nurse touch her to assess lung sounds or bowel sounds. Addendum: 04/07/19 at 1242 by Althea Wilkes RN Amended: Links added.
--- NOTE | 2019-04-07 12:53 | NUR ---
Nursing aids attempted to give patient a shower and change linens. Pt. refused STATING THAT THE STAFF WAS GOING TO "GET HER". SHE VERBALIZED SEVERAL PROFANITIES. REMOVED FROM THE SITUATION AND TAKEN BACK TO HER ROOM FOR A MORE QUIET ENVIRONMENT. WILL REAPPROACH AT A LATER TIME.
--- NOTE | 2019-04-07 14:23 | NUR ---
Pt. refused to take geodon although agitated, but was able to get in the shower and have a linen change.
[2019-04-07] MEDS: ziprasidone 20mg capsule PO PRN (14:39)
--- NOTE | 2019-04-07 14:57 | NUR ---
Mauricio RN attempted to administer Geodon per order to pt and was successful.
--- NOTE | 2019-04-07 18:31 | NUR ---
Problems reprioritized. Patient report given, questions answered & plan of care reviewed with TINA De La Rosa.
--- NOTE | 2019-04-07 19:06 | NUR ---
Patient in room [facility]. I have received report from TINA Oh and had the opportunity to ask questions and assume patient care. Addendum: 04/07/19 at 1907 by Estrella Siddiqi RN Amended: Links added.
[2019-04-07 20:00] VITALS: BP 139/68
--- NOTE | 2019-04-08 06:25 | NUR ---
Problems reprioritized. Patient report given, questions answered & plan of care reviewed with TINA Gillette. Addendum: 04/08/19 at 0625 by Estrella Siddiqi RN Amended: Links added.
[2019-04-08] MEDS: ziprasidone 20mg capsule PO PRN (06:59)
[2019-04-08] MEDS: heparin, porcine 5000 units/ml vial SQ SCH ×2 (08:00→20:00)
[2019-04-08] MEDS: K and/or MAG REPLACEMENT MC SCH (08:00)
[2019-04-08 08:40] VITALS: BP 142/50
[2019-04-08] MEDS: QUEtiapine 25mg tablet PO SCH ×2 (08:43→19:44)
[2019-04-08] MEDS: amLODIPine 5mg tablet PO SCH (08:44)
--- NOTE | 2019-04-08 11:05 | NUR ---
Patient refused afternoon vital signs. and part of AM vitals. Addendum: 04/08/19 at 1106 by Leta Mckeon RN Amended: Links added.
--- NOTE | 2019-04-08 12:19 | NUR ---
Reassessment: Pt continues with fluctuating PO intake, overall 75-100% with 25% PO intake at dinner last night and again at breakfast today. Noted that pt documented to have refused VS and is agitated/angry per MD notes. No documented changes in weight. LBM 04/05 with MoM SUMAYA, d/w dietary to send prunes with next meal to help with BM. Will continue to follow. Recommendations: 1) Continue with regular diet 2) Routine bowel care 3) Wt per rx Addendum: 04/08/19 at [address] Amended: Links added.
[2019-04-08 18:00] VITALS: BP 147/55
--- NOTE | 2019-04-08 18:20 | NUR ---
Problems reprioritized. Patient report given, questions answered & plan of care reviewed with TINA BARNARD.
[2019-04-08] MEDS: traZODone 50mg tablet PO SCH (19:43)
[2019-04-09] VITALS: BP 144/52
[2019-04-09] MEDS: ziprasidone 20mg capsule PO PRN ×2 (03:36→18:45)
--- NOTE | 2019-04-09 04:34 | NUR ---
Patient in room [facility]. I have received report from TINA Gillette and had the opportunity to ask questions and assume patient care. Addendum: 04/09/19 at 0434 by Estrella Siddiqi RN Amended: Links added.
--- NOTE | 2019-04-09 06:16 | NUR ---
Problems reprioritized. Patient report given, questions answered & plan of care reviewed with TINA Gillette. Addendum: 04/09/19 at 0616 by Estrella Siddiqi RN Amended: Links added.
[2019-04-09] MEDS: amLODIPine 5mg tablet PO SCH (07:44)
[2019-04-09] MEDS: QUEtiapine 25mg tablet PO SCH ×2 (07:48→20:46)
[2019-04-09] MEDS: K and/or MAG REPLACEMENT MC SCH (08:00)
[2019-04-09] MEDS: heparin, porcine 5000 units/ml vial SQ SCH ×2 (08:00→20:00)
[2019-04-09 11:09] VITALS: BP 142/83
--- NOTE | 2019-04-09 13:26 | NUR ---
Student documentation: I have reviewed and agree with all interventions, assessments performed and documented by SN Ritu.
--- NOTE | 2019-04-09 18:06 | NUR ---
Problems reprioritized. Patient report given, questions answered & plan of care reviewed with TINA Payne.
--- NOTE | 2019-04-09 18:07 | NUR ---
Patient in room [facility]. I have received report from TINA Gillette and had the opportunity to ask questions and assume patient care.
--- NOTE | 2019-04-09 18:59 | NUR ---
Patient is agitated, Geodon given. She is accepting care from me but refused to have her vital signs taken from the sitter. Patient is not in any apparent distress.
[2019-04-09] MEDS: traZODone 50mg tablet PO SCH (20:00)
[2019-04-10 01:28] VITALS: BP 141/97
--- NOTE | 2019-04-10 06:06 | NUR ---
Problems reprioritized. Patient report given, questions answered & plan of care reviewed with TINA Vitale.
--- NOTE | 2019-04-10 06:29 | NUR ---
Patient in room [facility]. I have received report from TINA Payne and had the opportunity to ask questions and assume patient care.
[2019-04-10 07:00] VITALS: BP 127/67
[2019-04-10] MEDS: amLODIPine 5mg tablet PO SCH (08:20)
[2019-04-10] MEDS: QUEtiapine 25mg tablet PO SCH ×2 (08:20→20:55)
[2019-04-10] MEDS: heparin, porcine 5000 units/ml vial SQ SCH ×2 (08:20→20:57)
[2019-04-10] MEDS: hydrOXYzine 25 MG tablet PO SCH ×2 (14:11→20:55)
--- NOTE | 2019-04-10 15:28 | NUR ---
UNABLE TO GET O2 SAT DUE TO NAIL LENGTH Addendum: 04/10/19 at 1533 by Winifred Bustillo RN Amended: Links added.
--- NOTE | 2019-04-10 15:31 | NUR ---
ASSESSMENT DONE LATE DUE TO PATIENT REFUSAL IN SPRAG[place], WAS ABLE TO PERFORM ASSESSMENT LATER IN DAY WHEN PATIENT WAS IN BETTER MOOD Addendum: 04/10/19 at 1533 by Winifred Bustillo RN Amended: Links added.
--- NOTE | 2019-04-10 18:11 | NUR ---
Problems reprioritized. Patient report given, questions answered & plan of care reviewed with TINA QUESADA.
[2019-04-10 19:00] VITALS: BP 130/78
--- NOTE | 2019-04-10 19:01 | NUR ---
Patient in room [facility]. I have received report from Winifred WILDER and had the opportunity to ask questions and assume patient care. patient is sleeping.
[2019-04-10] MEDS: traZODone 50mg tablet PO SCH (20:56)
[2019-04-10] MEDS: cloNIDine 0.1 mg tablet PO SCH (21:01)
[2019-04-11] VITALS: BP 112/51
[2019-04-11] MEDS: hydrOXYzine 25 MG tablet PO SCH ×4 (02:45→20:00)
--- NOTE | 2019-04-11 06:28 | NUR ---
Patient in room [facility]. I have received report from Elsie WILDER and had the opportunity to ask questions and assume patient care.
--- NOTE | 2019-04-11 06:33 | NUR ---
Problems reprioritized. Patient report given, questions answered & plan of care reviewed with Marie RN.patient is in the room with a sitter.
[2019-04-11] MEDS: amLODIPine 5mg tablet PO SCH ×2 (08:00→08:57)
[2019-04-11] MEDS: heparin, porcine 5000 units/ml vial SQ SCH ×3 (08:00→20:00)
[2019-04-11] MEDS: cloNIDine 0.1 mg tablet PO SCH ×2 (08:56→20:00)
[2019-04-11] MEDS: QUEtiapine 25mg tablet PO SCH ×2 (08:57→21:00)
[2019-04-11] MEDS: ziprasidone 20mg capsule PO PRN (10:48)
--- NOTE | 2019-04-11 10:51 | NUR ---
pt is extremely agitated and violent at times. Speaking a lot of obscene vocabulary. It has taken two aids and 1 nurse to help pt shower and keep her from hurting staff. Pippa PO given with yogurt. Scanner did not work, had to use ADM. button in order to expedite administration.
--- NOTE | 2019-04-11 18:44 | NUR ---
Problems reprioritized. Patient report given, questions answered & plan of care reviewed with Prudence RN.
--- NOTE | 2019-04-11 18:56 | NUR ---
Assumed car. Received report from Marie WILDER. was informed of patient stae of mind during day time. Patient agitated and received geodon. patient is resting and shows no sign of distress.
[2019-04-11] MEDS: traZODone 50mg tablet PO SCH (20:00)
--- NOTE | 2019-04-11 22:15 | NUR ---
Patient refused her mediction and she had a very difficulty day. She has been resting .
--- NOTE | 2019-04-12 00:45 | NUR ---
Patient refused vital signs
--- NOTE | 2019-04-12 00:46 | NUR ---
Patient refused vital signs. Addendum: 04/12/19 at 0047 by Elsie Montes RN Amended: Links added.
[2019-04-12] MEDS: hydrOXYzine 25 MG tablet PO SCH ×4 (02:00→20:00)
--- NOTE | 2019-04-12 06:32 | NUR ---
Problems reprioritized. Patient report given, questions answered & plan of care reviewed with Marie WILDER.
--- NOTE | 2019-04-12 06:43 | NUR ---
Patient in room [facility]. I have received report from Elsie WILDER and had the opportunity to ask questions and assume patient care.
[2019-04-12 08:00] VITALS: BP 141/69
[2019-04-12] MEDS: heparin, porcine 5000 units/ml vial SQ SCH ×2 (08:00→20:00)
[2019-04-12] MEDS: QUEtiapine 25mg tablet PO SCH ×2 (08:43→21:00)
[2019-04-12] MEDS: amLODIPine 5mg tablet PO SCH (08:43)
[2019-04-12] MEDS: cloNIDine 0.1 mg tablet PO SCH ×2 (08:43→20:00)
[2019-04-12 12:00] VITALS: BP 105/53
[2019-04-12 18:00] VITALS: BP 100/49
[2019-04-12] MEDS: traZODone 50mg tablet PO SCH (20:00)
--- NOTE | 2019-04-12 21:45 | NUR ---
Patient in room [facility]. I have received report from TINA Salazar and had the opportunity to ask questions and assume patient care. Addendum: 04/12/19 at 2146 by Estrella Siddiqi RN Amended: Links added.
[2019-04-12 23:58] VITALS: BP 110/51
[2019-04-13] MEDS: hydrOXYzine 25 MG tablet PO SCH ×4 (02:00→20:33)
[2019-04-13] MEDS: ziprasidone 20mg capsule PO PRN (04:49)
--- NOTE | 2019-04-13 05:02 | NUR ---
PT BECOMING VERY AGITATED. ATTEMPTED TO GIVE GEODON po BUT PT. REFUSED. PT SWUNG AT [employer] BUT MISSED. SATYA CARNES CALLED.
--- NOTE | 2019-04-13 06:18 | NUR ---
Problems reprioritized. Patient report given, questions answered & plan of care reviewed with TINA Salazar. Addendum: 04/13/19 at 0619 by Estrella Siddiqi RN Amended: Links added.
--- NOTE | 2019-04-13 06:41 | NUR ---
Patient in room [facility]. I have received report from Estrella WILDER and had the opportunity to ask questions and assume patient care.
[2019-04-13] MEDS: QUEtiapine 25mg tablet PO SCH ×2 (07:10→20:34)
[2019-04-13] MEDS: amLODIPine 5mg tablet PO SCH (07:10)
[2019-04-13] MEDS: heparin, porcine 5000 units/ml vial SQ SCH ×2 (07:13→20:00)
[2019-04-13] MEDS: cloNIDine 0.1 mg tablet PO SCH ×2 (08:00→20:00)
[2019-04-13 11:00] VITALS: BP 147/69
--- NOTE | 2019-04-13 11:37 | NUR ---
PT REFUSED 0700 VITALS -
--- NOTE | 2019-04-13 18:49 | NUR ---
Patient in room [facility]. I have received report from TINA Salazar and had the opportunity to ask questions and assume patient care.
[2019-04-13 19:52] VITALS: BP 142/74
[2019-04-13] MEDS: traZODone 50mg tablet PO SCH (20:33)
--- NOTE | 2019-04-13 22:00 | NUR ---
went in at 2030 with medications and tried to perform a physical assessment on the pt, pt was refusing and not wanting this performed at this time. Went back at 2200 to perform the assessment was able to perform a few tasks before pt started to become agitated and using derogative language with me. Tried to calm the pt down and use calming words however this did not work. for my safety decided to end the physical assessment at this time. will continue to monitor patient
--- NOTE | 2019-04-14 01:15 | NUR ---
Pt refused vital signs at 0000.
[2019-04-14] MEDS: hydrOXYzine 25 MG tablet PO SCH ×3 (02:00→14:33)
--- NOTE | 2019-04-14 06:29 | NUR ---
Problems reprioritized. Patient report given, questions answered & plan of care reviewed with TINA Chávez.
--- NOTE | 2019-04-14 06:41 | NUR ---
Patient in room [facility]. I have received report from Hailee WILDER and had the opportunity to ask questions and assume patient care.
--- NOTE | 2019-04-14 06:57 | NUR ---
Patient in room [facility]. I have received report from ALVIN WILDER and had the opportunity to ask questions and assume patient care.
[2019-04-14 08:00] VITALS: BP 139/76
[2019-04-14] MEDS: heparin, porcine 5000 units/ml vial SQ SCH (08:00)
[2019-04-14] MEDS: QUEtiapine 25mg tablet PO SCH (08:44)
[2019-04-14] MEDS: amLODIPine 5mg tablet PO SCH (08:44)
[2019-04-14] MEDS: cloNIDine 0.1 mg tablet PO SCH (08:44)
--- NOTE | 2019-04-14 10:14 | NUR ---
Reassessment: Pt generally with 100% PO intake for breakfast and lunch with 25% and refusals for dinner. Likely pt still full from previous meals resulting in poor PO intake for dinner. Pt still meeting nutrient needs with this meal pattern. No nutrition intervention warranted at this time. [facility] 04/13. Will continue to follow. Recommendations: 1) Continue with regular diet 2) Routine bowel care 3) Wt per rx Addendum: 04/14/19 at [address] Amended: Links added.
--- NOTE | 2019-04-14 18:41 | NUR ---
Problems reprioritized. Patient report given, questions answered & plan of care reviewed with Gretel WILDER.
[2019-04-14 20:00] VITALS: BP 102/61
[2019-04-15] MEDS: ziprasidone 20mg capsule PO PRN ×2 (00:26→11:32)
[2019-04-15] MEDS: traZODone 50mg tablet PO SCH ×3 (00:27→20:20)
[2019-04-15] MEDS: QUEtiapine 25mg tablet PO SCH ×3 (00:28→20:20)
[2019-04-15] MEDS: cloNIDine 0.1 mg tablet PO SCH ×3 (00:29→20:20)
[2019-04-15] MEDS: hydrOXYzine 25 MG tablet PO SCH ×3 (00:30→07:40)
--- NOTE | 2019-04-15 00:30 | NUR ---
Patient refused most of her night medications tonight. The only night medication she took was seroquel. Patient became very agitated and screaming, wanting to leave her room. Pippa canas was given to patient.
[2019-04-15] MEDS: heparin, porcine 5000 units/ml vial SQ SCH ×3 (00:31→20:00)
[2019-04-15 06:00] VITALS: BP 140/75
--- NOTE | 2019-04-15 06:15 | NUR ---
Patient in room [facility]. I have received report from TINA Majano and had the opportunity to ask questions and assume patient care. Patient currently sleeping in bed, sitter in room, no acute distress, will continue to monitor
[2019-04-15] MEDS: amLODIPine 5mg tablet PO SCH (07:40)
--- NOTE | 2019-04-15 11:36 | NUR ---
PAGER ID: [phone] MESSAGE: TINA Crowley, ext [phone], [phone], malathi Carreno reports patient engaging in self-harm, is refusing to take her Geodon, very agitated at this time.
[2019-04-15] MEDS ORDERED: ziprasidone IM 20mg inj **IM only IM PRN (11:40)
--- NOTE | 2019-04-15 12:29 | NUR ---
DM consult: Pt with no documented hx DM, no A1c in EMR, and BG well controlled throughout LOS with range 81-117 on regular diet and not on glycemic protocol. No DM education warranted at this time. Will continue to follow. Addendum: 04/15/19 at [address] Amended: Links added.
[2019-04-15] MEDS: divalproex sod 125mg sprinkle cap PO SCH (17:32)
--- NOTE | 2019-04-15 18:26 | NUR ---
Problems reprioritized. Patient report given, questions answered & plan of care reviewed with TINA Woods.
--- NOTE | 2019-04-15 18:26 | NUR ---
Patient in room [facility]. I have received report from TINA Crowley and had the opportunity to ask questions and assume patient care. Pt is alert and oriented X1 and has sitter at the bedside
[2019-04-15 20:00] VITALS: BP 125/73
--- NOTE | 2019-04-16 06:16 | NUR ---
Problems reprioritized. Patient report given, questions answered & plan of care reviewed with TINA Mota.
--- NOTE | 2019-04-16 06:27 | NUR ---
Patient in room [facility]. I have received report from TINA Woods and had the opportunity to ask questions and assume patient care.
[2019-04-16 07:23] VITALS: BP 129/47
[2019-04-16] MEDS: amLODIPine 5mg tablet PO SCH (07:49)
[2019-04-16] MEDS: cloNIDine 0.1 mg tablet PO SCH ×2 (07:50→19:26)
[2019-04-16] MEDS: QUEtiapine 25mg tablet PO SCH ×2 (07:50→19:26)
[2019-04-16] MEDS: divalproex sod 125mg sprinkle cap PO SCH ×4 (07:50→17:39)
[2019-04-16] MEDS: heparin, porcine 5000 units/ml vial SQ SCH ×2 (07:55→19:27)
[2019-04-16 11:30] VITALS: BP 126/53
--- NOTE | 2019-04-16 18:35 | NUR ---
Problems reprioritized. Patient report given, questions answered & plan of care reviewed with Katerina Lockett RN.
--- NOTE | 2019-04-16 18:39 | NUR ---
Patient in room [facility]. I have received report from TINA MATTHEWS and had the opportunity to ask questions and assume patient care. Addendum: 04/16/19 at 1839 by Mariela Garcia RN Amended: Links added.
--- NOTE | 2019-04-16 19:00 | NUR ---
Problems reprioritized. Patient report given, questions answered & plan of care reviewed with zohreh benitez.
[2019-04-16] MEDS: traZODone 50mg tablet PO SCH (19:26)
--- NOTE | 2019-04-17 01:34 | NUR ---
PATIENT REFUSING TO GET HER VS Addendum: 04/17/19 at 0134 by Mariela Garcia RN Amended: Links added.
--- NOTE | 2019-04-17 06:26 | NUR ---
Problems reprioritized. Patient report given, questions answered & plan of care reviewed with TINA Mota.
--- NOTE | 2019-04-17 06:27 | NUR ---
Patient in room [facility]. I have received report from Katerina Lockett RN and had the opportunity to ask questions and assume patient care.
[2019-04-17 07:00] VITALS: BP 130/66
[2019-04-17] MEDS: heparin, porcine 5000 units/ml vial SQ SCH ×2 (08:00→20:00)
[2019-04-17] MEDS: divalproex sod 125mg sprinkle cap PO SCH ×3 (08:30→18:02)
[2019-04-17] MEDS: amLODIPine 5mg tablet PO SCH (08:50)
[2019-04-17] MEDS: QUEtiapine 25mg tablet PO SCH ×2 (08:50→20:20)
[2019-04-17] MEDS: cloNIDine 0.1 mg tablet PO SCH ×2 (08:50→20:20)
[2019-04-17 11:00] VITALS: BP 111/53
--- NOTE | 2019-04-17 11:24 | NUR ---
Reassessment: Pt continues meeting nutrient needs with average 75-100% PO intake. M 04/13, d/w dietary to send prunes at next meal. Will continue to follow. Recommendations: 1) Continue with regular diet 2) Routine bowel care 3) Wt per rx Addendum: 04/17/19 at [address] Amended: Links added.
[2019-04-17 18:00] VITALS: BP 133/50
--- NOTE | 2019-04-17 18:20 | NUR ---
Problems reprioritized. Patient report given, questions answered & plan of care reviewed with Katerina Lockett RN.
--- NOTE | 2019-04-17 18:34 | NUR ---
Patient in room [facility]. I have received report from TINA Mota and had the opportunity to ask questions and assume patient care. Addendum: 04/17/19 at 1834 by Mariela Garcia RN Amended: Links added.
[2019-04-17] MEDS: traZODone 50mg tablet PO SCH (20:20)
[2019-04-17 23:55] VITALS: BP 90/33
[2019-04-18 03:30] VITALS: BP 105/54
--- NOTE | 2019-04-18 06:13 | NUR ---
Problems reprioritized. Patient report given, questions answered & plan of care reviewed with TINA Aceves.
--- NOTE | 2019-04-18 06:29 | NUR ---
Patient in room [facility]. I have received report from Briseyda Lockett RN and had the opportunity to ask questions and assume patient care.
[2019-04-18] MEDS: heparin, porcine 5000 units/ml vial SQ SCH ×2 (08:00→20:00)
[2019-04-18] MEDS: cloNIDine 0.1 mg tablet PO SCH ×2 (08:00→22:19)
[2019-04-18] MEDS: QUEtiapine 25mg tablet PO SCH ×2 (08:13→22:14)
[2019-04-18] MEDS: amLODIPine 5mg tablet PO SCH (08:14)
[2019-04-18] MEDS: divalproex sod 125mg sprinkle cap PO SCH ×3 (08:15→17:51)
[2019-04-18 08:27] VITALS: BP 102/67
[2019-04-18 18:15] VITALS: BP 136/68
--- NOTE | 2019-04-18 18:22 | NUR ---
Problems reprioritized. Patient report given, questions answered & plan of care reviewed with Bonny WILDER
--- NOTE | 2019-04-18 18:29 | NUR ---
Patient in room [facility]. I have received report from TINA Paiz and had the opportunity to ask questions and assume patient care.
[2019-04-18 22:15] VITALS: BP 135/69
[2019-04-18] MEDS: traZODone 50mg tablet PO SCH (22:25)
--- NOTE | 2019-04-18 22:26 | NUR ---
Patient has Trazodone 100 mg, 2 tablets ordered. Pt swallowed 1 tablet and refused to swallow the 2nd tablet.
--- NOTE | 2019-04-19 06:25 | NUR ---
Patient in room [facility]. I have received report from Bonny WILDER and had the opportunity to ask questions and assume patient care.
--- NOTE | 2019-04-19 06:30 | NUR ---
Problems reprioritized. Patient report given, questions answered & plan of care reviewed with TINA Paiz.
[2019-04-19 08:00] VITALS: BP 131/65
[2019-04-19] MEDS: heparin, porcine 5000 units/ml vial SQ SCH ×2 (08:00→20:00)
[2019-04-19] MEDS: divalproex sod 125mg sprinkle cap PO SCH ×3 (09:22→17:17)
[2019-04-19] MEDS: QUEtiapine 25mg tablet PO SCH ×2 (09:22→21:51)
[2019-04-19] MEDS: cloNIDine 0.1 mg tablet PO SCH ×2 (09:22→21:50)
[2019-04-19] MEDS: amLODIPine 5mg tablet PO SCH (09:23)
[2019-04-19] MEDS: magnesium hydroxide 30ml (MOM) UD suspension PO PRN (09:28)
[2019-04-19] MEDS: haloperidol lactate 5mg/ml inj IM PRN (15:17)
--- NOTE | 2019-04-19 18:16 | NUR ---
Problems reprioritized. Patient report given, questions answered & plan of care reviewed with Bonny WILDER.
--- NOTE | 2019-04-19 18:26 | NUR ---
Patient in room [facility]. I have received report from TINA De Dios and had the opportunity to ask questions and assume patient care.
[2019-04-19 18:45] VITALS: BP 131/65
--- NOTE | 2019-04-19 18:45 | NUR ---
Upon performed routine vital signs at 1800, aide/sitter was able to perform blood pressure only. Pt declined temperature and pulse ox reading.
[2019-04-19] MEDS: traZODone 50mg tablet PO SCH (21:51)
--- NOTE | 2019-04-20 | NUR ---
Patient refused vital signs at 0000.
--- NOTE | 2019-04-20 06:33 | NUR ---
Patient in room [facility]. I have received report from TINA Draper and had the opportunity to ask questions and assume patient care.
--- NOTE | 2019-04-20 06:37 | NUR ---
Problems reprioritized. Patient report given, questions answered & plan of care reviewed with Winifred Perez RN.
[2019-04-20 09:43] VITALS: BP 131/74
[2019-04-20] MEDS: amLODIPine 5mg tablet PO SCH (09:45)
[2019-04-20] MEDS: QUEtiapine 25mg tablet PO SCH ×2 (09:46→22:13)
[2019-04-20] MEDS: heparin, porcine 5000 units/ml vial SQ SCH ×2 (09:46→20:00)
[2019-04-20] MEDS: divalproex sod 125mg sprinkle cap PO SCH ×3 (09:46→17:55)
[2019-04-20] MEDS: cloNIDine 0.1 mg tablet PO SCH ×2 (09:46→22:12)
[2019-04-20 18:00] VITALS: BP 136/69
--- NOTE | 2019-04-20 18:28 | NUR ---
Problems reprioritized. Patient report given, questions answered & plan of care reviewed with TINA Draper.
--- NOTE | 2019-04-20 18:30 | NUR ---
Patient in room [facility]. I have received report from Winifred Perez RN and had the opportunity to ask questions and assume patient care.
[2019-04-20] MEDS: traZODone 50mg tablet PO SCH (22:12)
--- NOTE | 2019-04-20 22:23 | NUR ---
Patient refused night heparin. Risks and benefits given with patient.
--- NOTE | 2019-04-21 01:00 | NUR ---
Patient asleep during 0000 vital signs. Will continue to monitor.
--- NOTE | 2019-04-21 06:00 | NUR ---
Problems reprioritized. Patient report given, questions answered & plan of care reviewed with TINA Oh.
[2019-04-21 06:43] LABS: HEMATOCRIT 36.2 % (35.0-45.0); HEMOGLOBIN 12.4 g/dl (12.0-16.0); MEAN CORPUSCULAR HGB CONC 34.2 g/dL (33.0-36.5); MEAN CORPUSCULAR VOLUME 93.6 FL (78-98); MEAN PLATELET VOLUME 7.8 FL (7.4-10.4); PLATELET COUNT 233 X10'3 (140-440); RED BLOOD COUNT 3.87 X10'6 (4.20-5.60); RED CELL DISTRIBUTION WIDTH 13.1 % (11.5-14.5); WHITE BLOOD COUNT 4.9 X10'3 (4.5-11.0)
[2019-04-21 07:00] VITALS: BP 134/57
[2019-04-21] MEDS: amLODIPine 5mg tablet PO SCH (08:11)
[2019-04-21] MEDS: QUEtiapine 25mg tablet PO SCH ×2 (08:11→21:47)
[2019-04-21] MEDS: heparin, porcine 5000 units/ml vial SQ SCH ×2 (08:12→21:54)
[2019-04-21] MEDS: cloNIDine 0.1 mg tablet PO SCH ×2 (08:13→21:47)
[2019-04-21] MEDS: divalproex sod 125mg sprinkle cap PO SCH ×3 (09:22→16:44)
--- NOTE | 2019-04-21 10:10 | NUR ---
Reassessment: No significant changes in PO intake, pt continues meeting nutrient needs. LBM 04/13, per med list pt uncooperative with MoM. D/w dietary to send prunes QD at lunch. Will continue to follow. Recommendations: 1) Continue with regular diet 2) Prunes QD at lunch 3) Routine bowel care 4) Wt per rx Addendum: 04/21/19 at [address] Amended: Links added.
[2019-04-21] MEDS: magnesium hydroxide 30ml (MOM) UD suspension PO PRN (10:34)
[2019-04-21] MEDS ORDERED: bisacodyl 10mg suppository rectal RC PRN (11:10)
[2019-04-21 12:10] VITALS: BP 109/38
--- NOTE | 2019-04-21 12:11 | NUR ---
Pt. sleeping during vitals assessment Addendum: 04/21/19 at 1211 by Althea Wilkes RN Amended: Links added.
--- NOTE | 2019-04-21 18:23 | NUR ---
Problems reprioritized. Patient report given, questions answered & plan of care reviewed with Ariella WILDER.
--- NOTE | 2019-04-21 19:00 | NUR ---
Patient in room [facility]. I have received report from Althea WILDER and had the opportunity to ask questions and assume patient care. patient sleeping sitter at bedside will continue to monitor
--- NOTE | 2019-04-21 21:12 | NUR ---
Patient in room [facility]. I have received report from Althea WILDER and had the opportunity to ask questions and assume patient care.
[2019-04-21] MEDS: traZODone 50mg tablet PO SCH (21:46)
[2019-04-22 06:30] VITALS: BP 110/64
--- NOTE | 2019-04-22 06:30 | NUR ---
Problems reprioritized. Patient report given, questions answered & plan of care reviewed with Althea WILDER.
--- NOTE | 2019-04-22 06:33 | NUR ---
Problems reprioritized. Patient report given, questions answered & plan of care reviewed with Althea WILDER.
[2019-04-22] MEDS: heparin, porcine 5000 units/ml vial SQ SCH ×2 (08:00→19:53)
[2019-04-22] MEDS: cloNIDine 0.1 mg tablet PO SCH ×2 (09:20→19:51)
[2019-04-22] MEDS: QUEtiapine 25mg tablet PO SCH ×2 (09:20→19:55)
[2019-04-22] MEDS: amLODIPine 5mg tablet PO SCH (09:20)
[2019-04-22] MEDS: divalproex sod 125mg sprinkle cap PO SCH ×3 (09:24→16:43)
[2019-04-22 11:00] VITALS: BP 101/49
--- NOTE | 2019-04-22 18:28 | NUR ---
Gave report to Heena WILDER.
--- NOTE | 2019-04-22 18:30 | NUR ---
Received report from TINA Oh and had the opportunity to ask questions and assume patient care. Patient is awake and alert on room air, in no apparent distress. Call light and items of frequent use within reach. Will continue to monitor.
[2019-04-22] MEDS: traZODone 50mg tablet PO SCH (19:52)
[2019-04-22 20:00] VITALS: BP 105/50
--- NOTE | 2019-04-23 06:23 | NUR ---
Problems reprioritized. Patient report given, questions answered & plan of care reviewed with TINA Martinez.
--- NOTE | 2019-04-23 06:55 | NUR ---
Patient in room [facility]. I have received report from CHRISTEN WILDER and had the opportunity to ask questions and assume patient care.
[2019-04-23 07:36] VITALS: BP 113/61
[2019-04-23] MEDS: heparin, porcine 5000 units/ml vial SQ SCH ×2 (08:00→20:00)
[2019-04-23] MEDS: cloNIDine 0.1 mg tablet PO SCH ×2 (08:20→20:11)
[2019-04-23] MEDS: divalproex sod 125mg sprinkle cap PO SCH ×3 (08:20→17:40)
[2019-04-23] MEDS: QUEtiapine 25mg tablet PO SCH ×2 (08:20→20:11)
[2019-04-23] MEDS: amLODIPine 5mg tablet PO SCH (08:20)
--- NOTE | 2019-04-23 18:03 | NUR ---
Received report from TINA Martinez. Patient is awake and alert on room air, in no apparent distress. Sitter at bedside. Call light and items of frequent use within reach. Will continue to monitor.
--- NOTE | 2019-04-23 18:13 | NUR ---
Problems reprioritized. Patient report given, questions answered & plan of care reviewed with Heena WILDER.
[2019-04-23] MEDS: traZODone 50mg tablet PO SCH (20:11)
[2019-04-24] MEDS: haloperidol lactate 5mg/ml inj IM PRN (05:18)
[2019-04-24 07:22] VITALS: BP 124/53
[2019-04-24] MEDS: cloNIDine 0.1 mg tablet PO SCH ×2 (08:00→20:00)
[2019-04-24] MEDS: QUEtiapine 25mg tablet PO SCH ×2 (08:00→20:32)
[2019-04-24] MEDS: amLODIPine 5mg tablet PO SCH (08:00)
[2019-04-24] MEDS: heparin, porcine 5000 units/ml vial SQ SCH ×2 (08:00→20:31)
[2019-04-24] MEDS: divalproex sod 125mg sprinkle cap PO SCH ×3 (08:30→19:41)
--- NOTE | 2019-04-24 09:45 | NUR ---
PT NOT IN OMNICELL BY NAME OR ROOM NUMBER, HAD TWO PEOPLE ON THE FLOOR CHECK ALSO. MESSAGED PHARMACY. WILL WAIT FOR THIER RESPONSE. UNABLE TO GIVE MEDS AT THIS TIME.
--- NOTE | 2019-04-24 10:38 | NUR ---
MEDICATIONS BECAME AVAILABLE, BUT PT REFUSED.
--- NOTE | 2019-04-24 15:47 | NUR ---
Reassessment: Pt with decline in PO intake down to 25-50% however improved up to 100% at breakfast today. LBM 04/22. Pt received MoM 04/21 and now has Dulcolax Suppository PRN also given 04/21. Pt also receiving prunes DQ at lunch. Will continue to follow. Recommendations: 1) Continue with regular diet 2) Prunes QD at lunch 3) Routine bowel care 4) Wt per rx Addendum: 04/24/19 at [address] Amended: Links added.
--- NOTE | 2019-04-24 17:30 | NUR ---
ASKED PT IF SHE WANTED TO TAKE HER MED. SHE STATED NOT NOW. LET NOC SHIFT NURSE KNOW
--- NOTE | 2019-04-24 17:53 | NUR ---
Patient in room [facility]. I have received report from CHRISTEN WILDER and had the opportunity to ask questions and assume patient care.
[2019-04-24 18:00] VITALS: BP 162/75
--- NOTE | 2019-04-24 18:33 | NUR ---
Patient in room [facility]. I have received report from Carmela WILDER and had the opportunity to ask questions and assume patient care.
[2019-04-24] MEDS: traZODone 50mg tablet PO SCH (20:31)
[2019-04-24 20:43] VITALS: BP 130/55
--- NOTE | 2019-04-25 05:30 | NUR ---
Blood pressure and HR down (o Addendum: 04/25/19 at 0711 by Nia Payan RN HR only 56 when time to give catapress and BP down , so medication held.
--- NOTE | 2019-04-25 06:12 | NUR ---
Problems reprioritized. Patient report given, questions answered & plan of care reviewed with Ning RN.
[2019-04-25 06:30] VITALS: BP 120/62
--- NOTE | 2019-04-25 06:35 | NUR ---
Patient in room [facility]. I have received report from TINA Kramer and had the opportunity to ask questions and assume patient care.
[2019-04-25] MEDS: cloNIDine 0.1 mg tablet PO SCH ×2 (10:12→20:16)
[2019-04-25] MEDS: QUEtiapine 25mg tablet PO SCH ×2 (10:12→20:16)
[2019-04-25] MEDS: divalproex sod 125mg sprinkle cap PO SCH ×3 (10:12→17:43)
[2019-04-25] MEDS: amLODIPine 5mg tablet PO SCH (10:13)
[2019-04-25] MEDS: heparin, porcine 5000 units/ml vial SQ SCH ×2 (10:13→20:16)
[2019-04-25 11:00] VITALS: BP 144/63
--- NOTE | 2019-04-25 18:30 | NUR ---
Problems reprioritized. Patient report given, questions answered & plan of care reviewed with TINA Zimmerman.
--- NOTE | 2019-04-25 18:37 | NUR ---
Patient in room [facility]. I have received report from Boubacar WILDER and had the opportunity to ask questions and assume patient care. patient is pleasant with a sitter in the room. She denies having pain.
[2019-04-25] MEDS: traZODone 50mg tablet PO SCH (20:16)
--- NOTE | 2019-04-26 06:10 | NUR ---
Patient in room [facility]. I have received report from TINA Zimmerman and had the opportunity to ask questions and assume patient care.
--- NOTE | 2019-04-26 06:15 | NUR ---
Problems reprioritized. Patient report given, questions answered & plan of care reviewed with Ning RN. Patient resting with a sitter in the room. Patient shows no sign of distress and aggitation.
[2019-04-26] MEDS: amLODIPine 5mg tablet PO SCH (08:00)
[2019-04-26] MEDS: heparin, porcine 5000 units/ml vial SQ SCH ×2 (08:00→20:00)
[2019-04-26] MEDS: cloNIDine 0.1 mg tablet PO SCH ×2 (08:00→19:46)
[2019-04-26 08:15] VITALS: BP 127/49
--- NOTE | 2019-04-26 08:30 | NUR ---
HR=45. Amlodipine held per MD order.
[2019-04-26] MEDS: QUEtiapine 25mg tablet PO SCH ×2 (08:34→19:47)
[2019-04-26] MEDS: divalproex sod 125mg sprinkle cap PO SCH ×3 (08:34→16:43)
--- NOTE | 2019-04-26 18:00 | NUR ---
Problems reprioritized. Patient report given, questions answered & plan of care reviewed with Katerina Johnson RN.
[2019-04-26] MEDS: traZODone 50mg tablet PO SCH (19:46)
[2019-04-26 20:00] VITALS: BP 120/61
--- NOTE | 2019-04-26 20:00 | NUR ---
Heparin non-administered, labs not current within 3 days.
--- NOTE | 2019-04-27 06:38 | NUR ---
Problems reprioritized. Patient report given, questions answered & plan of care reviewed with TINA Garcia.
--- NOTE | 2019-04-27 06:47 | NUR ---
Patient in room [facility]. I have received report from Katerina Tello RN and had the opportunity to ask questions and assume patient care.
[2019-04-27 07:07] VITALS: BP 163/67
[2019-04-27] MEDS: heparin, porcine 5000 units/ml vial SQ SCH ×2 (08:00→19:49)
[2019-04-27] MEDS: QUEtiapine 25mg tablet PO SCH ×2 (08:30→19:47)
[2019-04-27] MEDS: divalproex sod 125mg sprinkle cap PO SCH ×3 (08:30→17:41)
[2019-04-27] MEDS: cloNIDine 0.1 mg tablet PO SCH ×2 (08:31→19:49)
[2019-04-27] MEDS: amLODIPine 5mg tablet PO SCH (08:31)
--- NOTE | 2019-04-27 18:11 | NUR ---
Patient in room [facility]. I have received report from TINA Aceves and had the opportunity to ask questions and assume patient care.
--- NOTE | 2019-04-27 18:33 | NUR ---
Problems reprioritized. Patient report given, questions answered & plan of care reviewed with Katerina Johnson RN.
[2019-04-27] MEDS: traZODone 50mg tablet PO SCH (19:47)
[2019-04-27 19:48] VITALS: BP 154/79
--- NOTE | 2019-04-27 19:49 | NUR ---
Non-administered heparin. No current lab values.
--- NOTE | 2019-04-28 06:13 | NUR ---
Problems reprioritized. Patient report given, questions answered & plan of care reviewed with TINA Paiz.
--- NOTE | 2019-04-28 06:34 | NUR ---
Patient in room [facility]. I have received report from Regulo WILDER and had the opportunity to ask questions and assume patient care. Addendum: 04/28/19 at 0636 by Izabel Nowak RN Patient in room [facility]. I have received report from Katerina Johnson RN and had the opportunity to ask questions and assume patient care.
[2019-04-28 08:00] VITALS: BP 123/36
[2019-04-28] MEDS: heparin, porcine 5000 units/ml vial SQ SCH ×2 (08:00→19:12)
[2019-04-28] MEDS: cloNIDine 0.1 mg tablet PO SCH ×2 (08:00→19:10)
[2019-04-28] MEDS: QUEtiapine 25mg tablet PO SCH ×2 (08:34→19:11)
[2019-04-28] MEDS: divalproex sod 125mg sprinkle cap PO SCH ×4 (08:34→17:26)
[2019-04-28] MEDS: amLODIPine 5mg tablet PO SCH (08:37)
--- NOTE | 2019-04-28 10:09 | NUR ---
Reassessment: PO intake remains stable at 75-100% on regular diet meeting nutrient needs. Pt now with consistent BMs with LBM 04/27. No nutrition diagnosis at this time. Pt continues awaiting placement. Will continue to follow per LOS protocol. Recommendations: 1) Continue with regular diet 2) Prunes QD at lunch 3) Routine bowel care 4) Wt per rx Addendum: 04/28/19 at [address] Amended: Links added.
[2019-04-28 11:00] VITALS: BP 123/44
--- NOTE | 2019-04-28 12:42 | NUR ---
SCANNED BAND AND IDENTIFIED PT. GAVE HER THE ORDERED DOSE OF DEPAKOTE. SHE TOOK IT AND THEN SPIT IT OUT. NON ADMINISTERED THIS MED AFTER SCANNING. PT REFUSED MED
--- NOTE | 2019-04-28 12:44 | NUR ---
AFTER SHE SPIT MED OUT THE TECH ENCOURAGED TO TRY TO TAKE IT AGAIN AND SWOLLOW. SHE DID. MANUALLY SCANNED MED AGAIN BECAUSE THE PACKAGE HAD BEEN OPEN AND UNABLE TO SCAN WITH SCANNER
[2019-04-28 18:00] VITALS: BP 177/58
--- NOTE | 2019-04-28 18:25 | NUR ---
Patient in room [facility]. I have received report from TINA Paiz and had the opportunity to ask questions and assume patient care.
--- NOTE | 2019-04-28 18:25 | NUR ---
Problems reprioritized. Patient report given, questions answered & plan of care reviewed with Katerina Johnson RN.
[2019-04-28] MEDS: traZODone 50mg tablet PO SCH (19:10)
--- NOTE | 2019-04-28 19:13 | NUR ---
Non administered heparin. No current labs.
--- NOTE | 2019-04-29 06:25 | NUR ---
Problems reprioritized. Patient report given, questions answered & plan of care reviewed with TINA Salazar.
--- NOTE | 2019-04-29 06:27 | NUR ---
Patient in room [facility]. I have received report from Katerina Tello RN and had the opportunity to ask questions and assume patient care.
[2019-04-29 08:00] VITALS: BP 144/55
[2019-04-29] MEDS: amLODIPine 5mg tablet PO SCH (08:00)
[2019-04-29] MEDS: cloNIDine 0.1 mg tablet PO SCH ×2 (08:00→20:04)
[2019-04-29] MEDS: QUEtiapine 25mg tablet PO SCH ×2 (08:35→20:04)
[2019-04-29] MEDS: divalproex sod 125mg sprinkle cap PO SCH ×4 (08:36→18:27)
[2019-04-29] MEDS: heparin, porcine 5000 units/ml vial SQ SCH ×2 (08:39→20:04)
[2019-04-29 09:54] VITALS: BP 130/33
--- NOTE | 2019-04-29 11:00 | NUR ---
Pt refused vitals- agitated Addendum: 04/29/19 at 1938 by Marie Frausto RN Amended: Links added.
[2019-04-29] MEDS ORDERED: divalproex sod 125mg sprinkle cap PO ONE (15:40)
[2019-04-29 18:00] VITALS: BP 168/48
--- NOTE | 2019-04-29 18:10 | NUR ---
Problems reprioritized. Patient report given, questions answered & plan of care reviewed with Katerina Goodson.
--- NOTE | 2019-04-29 18:59 | NUR ---
Patient in room [facility]. I have received report from TINA Salazar and had the opportunity to ask questions and assume patient care. Addendum: 04/29/19 at 1900 by Mariela Garcia RN Amended: Links added.
[2019-04-29] MEDS: traZODone 50mg tablet PO SCH (20:04)
--- NOTE | 2019-04-30 06:41 | NUR ---
Problems reprioritized. Patient report given, questions answered & plan of care reviewed with TINA Salazar..
[2019-04-30 08:00] VITALS: BP 124/86
[2019-04-30] MEDS: divalproex sod 125mg sprinkle cap PO SCH ×3 (08:30→17:22)
[2019-04-30] MEDS: amLODIPine 5mg tablet PO SCH (08:30)
[2019-04-30] MEDS: cloNIDine 0.1 mg tablet PO SCH ×2 (08:31→20:49)
[2019-04-30] MEDS: QUEtiapine 25mg tablet PO SCH ×2 (08:31→20:49)
[2019-04-30] MEDS: heparin, porcine 5000 units/ml vial SQ SCH ×2 (08:32→20:50)
[2019-04-30 11:00] VITALS: BP 115/53
[2019-04-30 18:15] VITALS: BP 135/51
--- NOTE | 2019-04-30 18:46 | NUR ---
Patient in room [facility]. I have received report from TINA Salazar and had the opportunity to ask questions and assume patient care.
--- NOTE | 2019-04-30 18:48 | NUR ---
Problems reprioritized. Patient report given, questions answered & plan of care reviewed with Bonny WILDER.
[2019-04-30] MEDS: traZODone 50mg tablet PO SCH (20:49)
--- NOTE | 2019-04-30 23:37 | NUR ---
Patient receives Heparin 5000 units Q12H. Last lab draw was 04/21/19, PLT count 233. Pt refused scheduled lab draw on 04/26/19. Paged and received order from Dr. Asher to place order for CBC and CMP. Order place for 05/01/19 AM draw.
--- NOTE | 2019-05-01 05:08 | NUR ---
Per lab, pt refused AM draw. Will inform oncoming day nurse.
--- NOTE | 2019-05-01 06:41 | NUR ---
Problems reprioritized. Patient report given, questions answered & plan of care reviewed with TINA Oden.
--- NOTE | 2019-05-01 06:43 | NUR ---
Patient in room [facility]. I have received report from Bonny WILDER and had the opportunity to ask questions and assume patient care.
[2019-05-01 07:00] VITALS: BP 112/86
[2019-05-01] MEDS: QUEtiapine 25mg tablet PO SCH ×2 (09:33→21:35)
[2019-05-01] MEDS: cloNIDine 0.1 mg tablet PO SCH ×2 (09:33→21:35)
[2019-05-01] MEDS: divalproex sod 125mg sprinkle cap PO SCH ×4 (09:33→17:35)
[2019-05-01] MEDS: amLODIPine 5mg tablet PO SCH (09:33)
[2019-05-01] MEDS: heparin, porcine 5000 units/ml vial SQ SCH ×2 (09:34→21:36)
--- NOTE | 2019-05-01 17:08 | NUR ---
Patient refused blood draw again
[2019-05-01 18:00] VITALS: BP 132/66
--- NOTE | 2019-05-01 18:36 | NUR ---
Problems reprioritized. Patient report given, questions answered & plan of care reviewed with Prudence RN.
--- NOTE | 2019-05-01 19:10 | NUR ---
Patient in room [facility]. I have received report from Cecille WILDER and had the opportunity to ask questions and assume patient care. Patient is awake with a sitter by her bedside. She seem to be in a calm mood.
[2019-05-01] MEDS: traZODone 50mg tablet PO SCH (21:35)
--- NOTE | 2019-05-02 06:31 | NUR ---
Problems reprioritized. Patient report given, questions answered & plan of care reviewed with Charo WILDER.
[2019-05-02] MEDS: heparin, porcine 5000 units/ml vial SQ SCH ×2 (08:00→20:58)
[2019-05-02] MEDS: amLODIPine 5mg tablet PO SCH (08:48)
[2019-05-02] MEDS: divalproex sod 125mg sprinkle cap PO SCH ×3 (08:48→17:53)
[2019-05-02] MEDS: QUEtiapine 25mg tablet PO SCH ×2 (08:48→20:56)
[2019-05-02] MEDS: cloNIDine 0.1 mg tablet PO SCH ×2 (08:48→20:56)
[2019-05-02 09:42] VITALS: BP 123/61
[2019-05-02 18:00] VITALS: BP 123/53
--- NOTE | 2019-05-02 18:33 | NUR ---
Problems reprioritized. Patient report given, questions answered & plan of care reviewed with PRUDENCE.
--- NOTE | 2019-05-02 19:28 | NUR ---
Patient in room [facility]. I have received report from Charo WILDER and had the opportunity to ask questions and assume patient care.
[2019-05-02] MEDS: traZODone 50mg tablet PO SCH (20:56)
--- NOTE | 2019-05-03 06:28 | NUR ---
Problems reprioritized. Patient report given, questions answered & plan of care reviewed with Gabbi WILDER. Patient is still asleep and the sitter is in the room.
--- NOTE | 2019-05-03 06:30 | NUR ---
Patient in room [facility]. I have received report from Elsie and had the opportunity to ask questions and assume patient care.
[2019-05-03] MEDS: cloNIDine 0.1 mg tablet PO SCH ×2 (07:33→20:51)
[2019-05-03] MEDS: amLODIPine 5mg tablet PO SCH (07:33)
[2019-05-03] MEDS: QUEtiapine 25mg tablet PO SCH ×2 (07:33→20:51)
[2019-05-03] MEDS: heparin, porcine 5000 units/ml vial SQ SCH ×2 (07:37→20:00)
[2019-05-03] MEDS: divalproex sod 125mg sprinkle cap PO SCH ×3 (07:41→17:26)
[2019-05-03 07:42] VITALS: BP 148/67
[2019-05-03 11:00] VITALS: BP 130/67
--- NOTE | 2019-05-03 17:51 | NUR ---
Pt has been calm and cooperative all shift. Sitter at bedside. Took all meds without difficulty.
[2019-05-03 18:00] VITALS: BP 125/63
--- NOTE | 2019-05-03 18:20 | NUR ---
Problems reprioritized. Patient report given, questions answered & plan of care reviewed with Bonny.
--- NOTE | 2019-05-03 18:25 | NUR ---
Patient in room [facility]. I have received report from TINA Seo and had the opportunity to ask questions and assume patient care.
[2019-05-03] MEDS: traZODone 50mg tablet PO SCH (20:52)
--- NOTE | 2019-05-04 06:47 | NUR ---
Problems reprioritized. Patient report given, questions answered & plan of care reviewed with TINA Bullock.
--- NOTE | 2019-05-04 06:53 | NUR ---
Patient in room [facility]. I have received report from TINA Tubbs and had the opportunity to ask questions and assume patient care.
[2019-05-04 07:26] VITALS: BP 171/48
[2019-05-04] MEDS: divalproex sod 125mg sprinkle cap PO SCH ×3 (07:40→17:37)
[2019-05-04] MEDS: QUEtiapine 25mg tablet PO SCH ×2 (07:41→20:57)
[2019-05-04] MEDS: amLODIPine 5mg tablet PO SCH (07:41)
[2019-05-04] MEDS: cloNIDine 0.1 mg tablet PO SCH ×2 (07:41→20:00)
[2019-05-04] MEDS: heparin, porcine 5000 units/ml vial SQ SCH ×2 (08:00→21:01)
--- NOTE | 2019-05-04 18:13 | NUR ---
Problems reprioritized. Patient report given, questions answered & plan of care reviewed with TINA Hendricks.
--- NOTE | 2019-05-04 18:42 | NUR ---
Patient in room [facility]. I have received report from TINA Bullock and had the opportunity to ask questions and assume patient care.
[2019-05-04] MEDS: traZODone 50mg tablet PO SCH (20:57)
[2019-05-04 21:00] VITALS: BP 117/63
[2019-05-05 06:30] VITALS: BP 113/72
--- NOTE | 2019-05-05 06:40 | NUR ---
Patient in room [facility]. I have received report from TINA Draper and had the opportunity to ask questions and assume patient care.
--- NOTE | 2019-05-05 06:45 | NUR ---
Problems reprioritized. Patient report given, questions answered & plan of care reviewed with TINA Barclay.
[2019-05-05] MEDS: divalproex sod 125mg sprinkle cap PO SCH ×3 (09:43→17:33)
[2019-05-05] MEDS: amLODIPine 5mg tablet PO SCH (09:43)
[2019-05-05] MEDS: QUEtiapine 25mg tablet PO SCH ×2 (09:43→18:33)
[2019-05-05] MEDS: magnesium hydroxide 30ml (MOM) UD suspension PO PRN (09:44)
[2019-05-05] MEDS: heparin, porcine 5000 units/ml vial SQ SCH ×2 (09:44→20:00)
[2019-05-05] MEDS: cloNIDine 0.1 mg tablet PO SCH ×2 (09:44→18:33)
--- NOTE | 2019-05-05 16:03 | NUR ---
Reassessment: Pt PO 75% avg meals overall meeting needs. PO does fluctuate w/ AOx1. LBM 05/02. No nutrition concerns at this time. Will continue to monitor. Recommendations: 1) Continue with regular diet 2) Prunes QD at lunch 3) Routine bowel care 4) Wt per rx Addendum: 05/05/19 at [address] Amended: Links added.
[2019-05-05 18:00] VITALS: BP 157/78
[2019-05-05] MEDS: traZODone 50mg tablet PO SCH (18:33)
--- NOTE | 2019-05-05 18:45 | NUR ---
Problems reprioritized. Patient report given, questions answered & plan of care reviewed with TINA De La Rosa
--- NOTE | 2019-05-05 21:01 | NUR ---
Patient in room [facility]. I have received report from TINA Barclay and had the opportunity to ask questions and assume patient care. Addendum: 05/05/19 at 2102 by Estrella Siddiqi RN Amended: Links added.
--- NOTE | 2019-05-06 06:30 | NUR ---
Problems reprioritized. Patient report given, questions answered & plan of care reviewed with TINA Mota. Addendum: 05/06/19 at 0631 by Estrella Siddiqi RN Amended: Links added.
--- NOTE | 2019-05-06 06:32 | NUR ---
Patient in room [facility]. I have received report from TINA De La Rosa and had the opportunity to ask questions and assume patient care.
[2019-05-06 07:30] VITALS: BP 131/76
[2019-05-06] MEDS: cloNIDine 0.1 mg tablet PO SCH ×2 (08:00→18:40)
[2019-05-06] MEDS: amLODIPine 5mg tablet PO SCH (08:00)
[2019-05-06] MEDS: QUEtiapine 25mg tablet PO SCH ×2 (08:00→18:41)
[2019-05-06] MEDS: heparin, porcine 5000 units/ml vial SQ SCH ×2 (08:00→18:54)
[2019-05-06] MEDS: divalproex sod 125mg sprinkle cap PO SCH ×3 (08:30→16:44)
[2019-05-06 11:44] VITALS: BP 144/76
[2019-05-06 18:00] VITALS: BP 129/70
--- NOTE | 2019-05-06 18:32 | NUR ---
Problems reprioritized. Patient report given, questions answered & plan of care reviewed with TINA De La Rosa.
[2019-05-06] MEDS: traZODone 50mg tablet PO SCH (18:40)
--- NOTE | 2019-05-06 21:38 | NUR ---
Patient in room [facility]. I have received report from TINA Mota and had the opportunity to ask questions and assume patient care. Addendum: 05/06/19 at 2138 by Estrella Siddiqi RN Amended: Links added.
--- NOTE | 2019-05-06 22:33 | NUR ---
Patient in room [facility]. I have received report from TINA Mota and had the opportunity to ask questions and assume patient care. Addendum: 05/06/19 at 2234 by Estrella Siddiqi RN Amended: Links added.
--- NOTE | 2019-05-07 06:13 | NUR ---
Problems reprioritized. Patient report given, questions answered & plan of care reviewed with TINA Paiz. Addendum: 05/07/19 at 0614 by Estrella Siddiqi RN Amended: Links added.
--- NOTE | 2019-05-07 06:45 | NUR ---
Patient in room [facility]. I have received report from Estrella WILDER and had the opportunity to ask questions and assume patient care.
[2019-05-07 08:00] VITALS: BP 155/68
[2019-05-07] MEDS: heparin, porcine 5000 units/ml vial SQ SCH ×2 (08:00→21:24)
[2019-05-07] MEDS: divalproex sod 125mg sprinkle cap PO SCH ×3 (09:02→17:52)
[2019-05-07] MEDS: amLODIPine 5mg tablet PO SCH (09:02)
[2019-05-07] MEDS: QUEtiapine 25mg tablet PO SCH ×2 (09:02→21:24)
[2019-05-07] MEDS: cloNIDine 0.1 mg tablet PO SCH ×2 (09:02→21:24)
[2019-05-07 11:00] VITALS: BP 176/51
[2019-05-07 18:00] VITALS: BP 157/63
--- NOTE | 2019-05-07 18:23 | NUR ---
Problems reprioritized. Patient report given, questions answered & plan of care reviewed with Katerina Lockett RN.
--- NOTE | 2019-05-07 18:36 | NUR ---
Patient in room [facility]. I have received report from TINA Paiz and had the opportunity to ask questions and assume patient care. Addendum: 05/07/19 at 1836 by Mariela Garcia RN Amended: Links added.
[2019-05-07] MEDS: traZODone 50mg tablet PO SCH (21:24)
--- NOTE | 2019-05-08 06:30 | NUR ---
Problems reprioritized. Patient report given, questions answered & plan of care reviewed with TINA Paiz. Addendum: 05/08/19 at 0630 by Mariela Garcia RN Amended: Links added.
--- NOTE | 2019-05-08 06:38 | NUR ---
Patient in room [facility]. I have received report from Katerina Woo RN and had the opportunity to ask questions and assume patient care.
[2019-05-08 07:00] VITALS: BP 134/45
[2019-05-08] MEDS: amLODIPine 5mg tablet PO SCH (08:00)
[2019-05-08] MEDS: heparin, porcine 5000 units/ml vial SQ SCH ×2 (08:00→21:58)
[2019-05-08] MEDS: cloNIDine 0.1 mg tablet PO SCH ×2 (08:00→21:53)
[2019-05-08] MEDS: QUEtiapine 25mg tablet PO SCH ×2 (08:00→21:53)
[2019-05-08] MEDS: divalproex sod 125mg sprinkle cap PO SCH ×3 (08:30→17:43)
--- NOTE | 2019-05-08 18:48 | NUR ---
Problems reprioritized. Patient report given, questions answered & plan of care reviewed with Slime WILDER.
--- NOTE | 2019-05-08 18:50 | NUR ---
Patient in room [facility]. I have received report from HUSAM WILDER and had the opportunity to ask questions and assume patient care.
[2019-05-08] MEDS: traZODone 50mg tablet PO SCH (21:53)
[2019-05-09] VITALS: BP 153/80
--- NOTE | 2019-05-09 06:30 | NUR ---
Problems reprioritized. Patient report given, questions answered & plan of care reviewed with HUONG WILDER.
--- NOTE | 2019-05-09 06:43 | NUR ---
Patient in room [facility]. I have received report from Audrey Ventura RN and had the opportunity to ask questions and assume patient care.
[2019-05-09 08:00] VITALS: BP 116/75
[2019-05-09] MEDS: amLODIPine 5mg tablet PO SCH (08:00)
[2019-05-09] MEDS: cloNIDine 0.1 mg tablet PO SCH ×2 (08:00→21:04)
[2019-05-09] MEDS: heparin, porcine 5000 units/ml vial SQ SCH ×2 (08:00→21:08)
--- NOTE | 2019-05-09 08:00 | NUR ---
AYSHA PALACIOS AM . Addendum: 05/09/19 at 1909 by Marie Frausto RN Amended: Links added.
[2019-05-09] MEDS: QUEtiapine 25mg tablet PO SCH ×2 (09:42→21:04)
[2019-05-09] MEDS: divalproex sod 125mg sprinkle cap PO SCH ×3 (09:42→17:30)
[2019-05-09 11:00] VITALS: BP 128/68
--- NOTE | 2019-05-09 17:50 | NUR ---
PROBLEM SCANNING PT'S MED. PT TOOK MED SPRINKLED IN HER [place]UR[place].
--- NOTE | 2019-05-09 19:16 | NUR ---
Problems reprioritized. Patient report given, questions answered & plan of care reviewed with BRAYDEN OWEN RN .
--- NOTE | 2019-05-09 19:20 | NUR ---
Patient in room [facility]. I have received report from HUONG WILDER and had the opportunity to ask questions and assume patient care.
[2019-05-09 20:00] VITALS: BP 146/85
[2019-05-09] MEDS: traZODone 50mg tablet PO SCH (21:04)
--- NOTE | 2019-05-10 06:30 | NUR ---
Problems reprioritized. Patient report given, questions answered & plan of care reviewed with HUONG WILDER.
[2019-05-10 08:00] VITALS: BP 155/120
[2019-05-10] MEDS: heparin, porcine 5000 units/ml vial SQ SCH (08:00)
[2019-05-10] MEDS: cloNIDine 0.1 mg tablet PO SCH ×2 (08:37→20:20)
[2019-05-10] MEDS: QUEtiapine 25mg tablet PO SCH ×2 (08:38→20:20)
[2019-05-10] MEDS: divalproex sod 125mg sprinkle cap PO SCH ×3 (08:38→17:32)
[2019-05-10] MEDS: amLODIPine 5mg tablet PO SCH (08:38)
[2019-05-10 10:00] VITALS: BP 133/104
[2019-05-10 18:00] VITALS: BP 117/55
--- NOTE | 2019-05-10 18:00 | NUR ---
Problems reprioritized. Patient report given, questions answered & plan of care reviewed with Heena WILDER.
--- NOTE | 2019-05-10 18:53 | NUR ---
Patient in room [facility]. I have received report from Marie WILDER and had the opportunity to ask questions and assume patient care.
[2019-05-10] MEDS: traZODone 50mg tablet PO SCH (20:20)
--- NOTE | 2019-05-11 06:34 | NUR ---
Problems reprioritized. Patient report given, questions answered & plan of care reviewed with Izabel WILDER.
--- NOTE | 2019-05-11 06:39 | NUR ---
I have reviewed and agree with all interventions, assessments performed and documented by TINA See.
--- NOTE | 2019-05-11 06:44 | NUR ---
Patient in room [facility]. I have received report from Heena/Esa WILDER and had the opportunity to ask questions and assume patient care.
[2019-05-11 08:00] VITALS: BP 129/57
[2019-05-11] MEDS: QUEtiapine 25mg tablet PO SCH ×2 (09:48→20:50)
[2019-05-11] MEDS: cloNIDine 0.1 mg tablet PO SCH ×2 (09:48→20:50)
[2019-05-11] MEDS: divalproex sod 125mg sprinkle cap PO SCH ×3 (09:48→17:30)
[2019-05-11] MEDS: amLODIPine 5mg tablet PO SCH (09:49)
--- NOTE | 2019-05-11 18:47 | NUR ---
Patient in room [facility]. I have received report from TINA Paiz and had the opportunity to ask questions and assume patient care. Addendum: 05/11/19 at 1848 by Mariela Garcia RN Amended: Links added.
--- NOTE | 2019-05-11 19:09 | NUR ---
Problems reprioritized. Patient report given, questions answered & plan of care reviewed with Katerina Lockett RN.
[2019-05-11 20:00] VITALS: BP 129/68
[2019-05-11] MEDS: traZODone 50mg tablet PO SCH (20:50)
--- NOTE | 2019-05-12 06:46 | NUR ---
Problems reprioritized. Patient report given, questions answered & plan of care reviewed with TINA Torres.
[2019-05-12 08:00] VITALS: BP 163/78
[2019-05-12] MEDS: cloNIDine 0.1 mg tablet PO SCH ×2 (08:00→20:18)
[2019-05-12] MEDS: QUEtiapine 25mg tablet PO SCH ×2 (08:47→20:19)
[2019-05-12] MEDS: amLODIPine 5mg tablet PO SCH (08:47)
[2019-05-12] MEDS: divalproex sod 125mg sprinkle cap PO SCH ×3 (08:47→16:51)
--- NOTE | 2019-05-12 10:13 | NUR ---
Reassessment: Pt PO 75-100% avg meals overall meeting needs. LBM 05/10. No nutrition diagnosis at this time. Will continue to follow Recommendations: 1) Continue regular diet 2) Prunes QD at lunch 3) Routine bowel care 4) Wt per rx Addendum: 05/12/19 at 1014 by Wing Tyrell PAREDES Amended: Links added. Addendum: 05/12/19 at [address] LENA George
[2019-05-12 10:58] VITALS: BP 115/56
--- NOTE | 2019-05-12 18:19 | NUR ---
Problems reprioritized. Patient report given, questions answered & plan of care reviewed with TINA Borges.
--- NOTE | 2019-05-12 18:26 | NUR ---
Patient in room [facility]. I have received report from TINA Torres and had the opportunity to ask questions and assume patient care. Addendum: 05/12/19 at 1826 by Mariela Garcia RN Amended: Links added.
[2019-05-12] MEDS: traZODone 50mg tablet PO SCH (20:19)
--- NOTE | 2019-05-13 06:27 | NUR ---
Problems reprioritized. Patient report given, questions answered & plan of care reviewed with TINA Torres.
[2019-05-13 07:21] VITALS: BP 136/71
[2019-05-13] MEDS: divalproex sod 125mg sprinkle cap PO SCH ×3 (08:42→17:13)
[2019-05-13] MEDS: QUEtiapine 25mg tablet PO SCH ×2 (08:43→20:23)
[2019-05-13] MEDS: cloNIDine 0.1 mg tablet PO SCH ×2 (08:43→20:24)
[2019-05-13] MEDS: amLODIPine 5mg tablet PO SCH (08:43)
[2019-05-13 12:23] VITALS: BP 116/62
--- NOTE | 2019-05-13 18:12 | NUR ---
Patient in room [facility]. I have received report from TINA PASTOR and had the opportunity to ask questions and assume patient care. Addendum: 05/13/19 at 1813 by Mariela Garcia RN Amended: Links added.
--- NOTE | 2019-05-13 18:12 | NUR ---
Problems reprioritized. Patient report given, questions answered & plan of care reviewed with TINA SANTIAGO.
[2019-05-13] MEDS: traZODone 50mg tablet PO SCH (20:24)
--- NOTE | 2019-05-14 06:44 | NUR ---
Problems reprioritized. Patient report given, questions answered & plan of care reviewed with TINA BORJA.
--- NOTE | 2019-05-14 06:46 | NUR ---
Patient in room [facility]. I have received report from Katerina Woo RN and had the opportunity to ask questions and assume patient care.
[2019-05-14 08:00] VITALS: BP 144/56
[2019-05-14] MEDS: divalproex sod 125mg sprinkle cap PO SCH ×3 (09:25→18:08)
[2019-05-14] MEDS: QUEtiapine 25mg tablet PO SCH ×2 (09:26→22:37)
[2019-05-14] MEDS: cloNIDine 0.1 mg tablet PO SCH ×2 (09:26→22:38)
[2019-05-14] MEDS: amLODIPine 5mg tablet PO SCH (09:28)
--- NOTE | 2019-05-14 18:00 | NUR ---
Problems reprioritized. Patient report given, questions answered & plan of care reviewed with Bonny WILDER.
[2019-05-14 18:15] VITALS: BP 134/64
--- NOTE | 2019-05-14 18:47 | NUR ---
Patient in room [facility]. I have received report from TINA Salazar and had the opportunity to ask questions and assume patient care.
[2019-05-14] MEDS: traZODone 50mg tablet PO SCH (22:37)
--- NOTE | 2019-05-15 06:51 | NUR ---
Problems reprioritized. Patient report given, questions answered & plan of care reviewed with TINA Salazar.
[2019-05-15 08:00] VITALS: BP 124/67
[2019-05-15] MEDS: cloNIDine 0.1 mg tablet PO SCH ×2 (08:00→22:10)
[2019-05-15] MEDS: QUEtiapine 25mg tablet PO SCH ×2 (10:21→22:08)
[2019-05-15] MEDS: divalproex sod 125mg sprinkle cap PO SCH ×3 (10:21→17:27)
[2019-05-15] MEDS: amLODIPine 5mg tablet PO SCH (10:21)
[2019-05-15 11:00] VITALS: BP 125/60
--- NOTE | 2019-05-15 18:00 | NUR ---
Problems reprioritized. Patient report given, questions answered & plan of care reviewed with Bonny Goodson.
--- NOTE | 2019-05-15 19:06 | NUR ---
Patient in room [facility]. I have received report from TINA Salazar and had the opportunity to ask questions and assume patient care.
[2019-05-15 22:00] VITALS: BP 139/78
[2019-05-15] MEDS: traZODone 50mg tablet PO SCH (22:08)
[2019-05-16 05:28] LABS: BASOPHILS % (AUTO) 0.5 % (0-1); EOSINOPHILS # (AUTO) 0.3 X10'3 (0-0.9); EOSINOPHILS % (AUTO) 6.4 % (0-6); HEMATOCRIT 32.5 % (35.0-45.0); HEMOGLOBIN 11.3 g/dl (12.0-16.0); LYMPHOCYTES # (AUTO) 1.3 X10'3 (1.1-4.8); LYMPHOCYTES % (AUTO) 25.6 % (21-51); MEAN CORPUSCULAR HEMOGLOBIN 32.7 PG (27.0-31.0); MEAN CORPUSCULAR HGB CONC 34.7 g/dL (33.0-36.5); MONOCYTES # (AUTO) 0.5 X10'3 (0-0.9); NEUTROPHILS % (AUTO) 57.5 % (42-75); PLATELET COUNT 223 X10'3 (140-440); RED BLOOD COUNT 3.45 X10'6 (4.20-5.60); RED CELL DISTRIBUTION WIDTH 13.5 % (11.5-14.5); WHITE BLOOD COUNT 5.2 X10'3 (4.5-11.0)
[2019-05-16 05:59] LABS: ALANINE AMINOTRANSFERASE 14 U/L (12-78); ALBUMIN 2.9 G/DL (3.4-5.0); ALBUMIN/GLOBULIN RATIO 0.8 (1.1-1.5); ALKALINE PHOSPHATASE 72 IU/L (46-116); ANION GAP 6 (8-16); ASPARTATE AMINO TRANSFERASE 8 U/L (10-37); BILIRUBIN,TOTAL 0.2 MG/DL (0.1-1.0); BLOOD UREA NITROGEN 27 MG/DL (7-18); BUN/CREATININE RATIO 22.3 (6.6-38.0); CALCIUM 8.6 MG/DL (8.5-10.1); CHLORIDE 104 MMOL/L (99-107); CREATININE 1.21 MG/DL (0.40-0.90); GLUCOSE 103 MG/DL (70-104); PHOSPHORUS 4.3 MG/DL (2.3-4.5); POTASSIUM 4.2 MMOL/L (3.5-5.1); SODIUM 139 MMOL/L (135-145); TOTAL CARBON DIOXIDE 29.1 MMOL/L (24-32); TOTAL PROTEIN 6.5 G/DL (6.4-8.2); eGFR 43 ML/MIN
--- NOTE | 2019-05-16 06:00 | NUR ---
Patient in room [facility]. I have received report from KAYKAY WILDER and had the opportunity to ask questions and assume patient care.
--- NOTE | 2019-05-16 06:15 | NUR ---
Problems reprioritized. Patient report given, questions answered & plan of care reviewed with TINA Elias.
[2019-05-16 08:00] VITALS: BP 119/50
[2019-05-16] MEDS: cloNIDine 0.1 mg tablet PO SCH ×2 (08:00→22:59)
[2019-05-16] MEDS: divalproex sod 125mg sprinkle cap PO SCH ×3 (08:30→17:30)
--- NOTE | 2019-05-16 08:30 | NUR ---
PT REFUSED HER MORNING MEDS. WILL TRY AGAIN AROUND 1100 BEFORE NON ADMINNING MEDS FOR TODAY
[2019-05-16] MEDS: amLODIPine 5mg tablet PO SCH (12:56)
[2019-05-16] MEDS: QUEtiapine 25mg tablet PO SCH ×2 (12:56→22:59)
--- NOTE | 2019-05-16 18:25 | NUR ---
Patient in room [facility]. I have received report from TINA Casey and had the opportunity to ask questions and assume patient care.
[2019-05-16] MEDS: traZODone 50mg tablet PO SCH (22:58)
[2019-05-16 23:00] VITALS: BP 124/63
--- NOTE | 2019-05-17 06:46 | NUR ---
Patient in room [facility]. I have received report from TINA Draper and had the opportunity to ask questions and assume patient care.
--- NOTE | 2019-05-17 07:15 | NUR ---
Problems reprioritized. Patient report given, questions answered & plan of care reviewed with TINA Vincent.
--- NOTE | 2019-05-17 07:19 | NUR ---
patient refused vitals signs this morning.
[2019-05-17] MEDS: cloNIDine 0.1 mg tablet PO SCH ×2 (08:00→20:39)
[2019-05-17 08:30] VITALS: BP 120/51
[2019-05-17] MEDS: QUEtiapine 25mg tablet PO SCH ×2 (08:40→20:34)
[2019-05-17] MEDS: divalproex sod 125mg sprinkle cap PO SCH ×3 (08:40→18:03)
[2019-05-17] MEDS: amLODIPine 5mg tablet PO SCH (08:40)
--- NOTE | 2019-05-17 10:47 | NUR ---
Taking over care of patient from Melisa Goodson.
--- NOTE | 2019-05-17 10:53 | NUR ---
Problems reprioritized. Patient report given, questions answered & plan of care reviewed with TINA Mancilla.
--- NOTE | 2019-05-17 11:24 | NUR ---
refused vitals for 1100
--- NOTE | 2019-05-17 19:06 | NUR ---
Pt and report given to Elmer Goodson. Sleeping, aide in room.
[2019-05-17] MEDS: traZODone 50mg tablet PO SCH (20:35)
[2019-05-17 21:08] VITALS: BP 105/86
--- NOTE | 2019-05-18 06:36 | NUR ---
Problems reprioritized. Patient report given, questions answered & plan of care reviewed with TINA Mancilla.
[2019-05-18] MEDS: divalproex sod 125mg sprinkle cap PO SCH ×3 (07:59→17:20)
[2019-05-18] MEDS: amLODIPine 5mg tablet PO SCH (07:59)
[2019-05-18] MEDS: QUEtiapine 25mg tablet PO SCH ×2 (07:59→20:38)
[2019-05-18] MEDS: cloNIDine 0.1 mg tablet PO SCH ×2 (07:59→20:37)
[2019-05-18 08:00] VITALS: BP 142/54
--- NOTE | 2019-05-18 18:18 | NUR ---
Problems reprioritized. Patient report given, questions answered & plan of care reviewed with Elmer Goodson.
--- NOTE | 2019-05-18 18:31 | NUR ---
Patient in room [facility]. I have received report from TINA Mancilla and had the opportunity to ask questions and assume patient care.
[2019-05-18 20:00] VITALS: BP 155/74
[2019-05-18] MEDS: traZODone 50mg tablet PO SCH (20:39)
--- NOTE | 2019-05-19 06:13 | NUR ---
Problems reprioritized. Patient report given, questions answered & plan of care reviewed with TINA Heart.
--- NOTE | 2019-05-19 06:15 | NUR ---
Patient in room [facility]. I have received report from Elmer WILDER and had the opportunity to ask questions and assume patient care.
[2019-05-19 07:57] VITALS: BP 138/51
[2019-05-19] MEDS: cloNIDine 0.1 mg tablet PO SCH ×2 (08:00→21:34)
[2019-05-19] MEDS: divalproex sod 125mg sprinkle cap PO SCH ×3 (08:23→17:28)
[2019-05-19] MEDS: amLODIPine 5mg tablet PO SCH (08:23)
[2019-05-19] MEDS: QUEtiapine 25mg tablet PO SCH ×2 (08:23→21:34)
--- NOTE | 2019-05-19 09:04 | NUR ---
Reassessment: Pt with recent decline in PO intake documented with 0-25% with the refusal of some meals on 05/16. PO intake seems to be back up averaging 75% all meals yesterday likely meeting nutrient needs at this time. [facility] 05/17. Will continue to follow and monitor need for nutrition intervention. Recommendations: 1) Continue regular diet 2) Prunes QD at lunch 3) Routine bowel care 4) Wt per rx Addendum: 05/19/19 at [address] Amended: Links added.
--- NOTE | 2019-05-19 13:47 | NUR ---
Dr. Powell informed of HR of 57 this AM and that clonidine was held. No new orders at this time. Dr. Powell also stated we could trial the patient without a sitter, as long as pt is closer to nurses station. No rooms close to the nurses station available at this time.
[2019-05-19 18:00] VITALS: BP 132/77
--- NOTE | 2019-05-19 18:47 | NUR ---
Problems reprioritized. Patient report given, questions answered & plan of care reviewed with Elmer WILDER.
--- NOTE | 2019-05-19 18:58 | NUR ---
Patient in room [facility]. I have received report from TINA Heart and had the opportunity to ask questions and assume patient care.
[2019-05-19 20:00] VITALS: BP 142/90
[2019-05-19] MEDS: traZODone 50mg tablet PO SCH (21:41)
--- NOTE | 2019-05-20 01:07 | NUR ---
Patient was moved to a room closer to nurses station. It was to much of a distraction for her and she did not handle the change well. We moved the patient to another room and added the sitter back . The reason we moved her to another room was because her roommate was complaining about her getting up and down, which was setting her bed alarm off.
--- NOTE | 2019-05-20 06:25 | NUR ---
Problems reprioritized. Patient report given, questions answered & plan of care reviewed with TINA Vitale.
--- NOTE | 2019-05-20 06:32 | NUR ---
Patient in room [facility]. I have received report from TINA ASENCIO and had the opportunity to ask questions and assume patient care.
[2019-05-20 07:00] VITALS: BP 137/66
[2019-05-20] MEDS: divalproex sod 125mg sprinkle cap PO SCH ×3 (08:30→19:27)
[2019-05-20] MEDS: amLODIPine 5mg tablet PO SCH (10:54)
[2019-05-20] MEDS: cloNIDine 0.1 mg tablet PO SCH ×2 (10:54→19:57)
[2019-05-20] MEDS: QUEtiapine 25mg tablet PO SCH ×2 (10:54→20:00)
--- NOTE | 2019-05-20 11:04 | NUR ---
MISSED DIRALPROEX: WAS BEHIND IN MY MED PASS AND IT WAS TOO CLOSE TO NEXT DOSE TO GIVE
--- NOTE | 2019-05-20 14:31 | NUR ---
PATIENT WOULD NOT TAKE DEEP BREATHS SO I COULD NOT ASSESS LUNG SOUNDS Addendum: 05/20/19 at 1434 by Winifred Bustillo RN Amended: Links added.
--- NOTE | 2019-05-20 18:49 | NUR ---
Problems reprioritized. Patient report given, questions answered & plan of care reviewed with TINA SANTIAGO.
--- NOTE | 2019-05-20 18:49 | NUR ---
Patient in room [facility]. I have received report from TINA Vitale and had the opportunity to ask questions and assume patient care. Addendum: 05/20/19 at 1849 by Mariela Garcia RN Amended: Links added.
[2019-05-20] MEDS: traZODone 50mg tablet PO SCH (19:57)
[2019-05-20 20:00] VITALS: BP 147/74
--- NOTE | 2019-05-21 06:24 | NUR ---
Problems reprioritized. Patient report given, questions answered & plan of care reviewed with TINA Hollins.
--- NOTE | 2019-05-21 06:27 | NUR ---
Patient in room [facility]. I have received report from Katerina Tello RN and had the opportunity to ask questions and assume patient care.
[2019-05-21] MEDS: cloNIDine 0.1 mg tablet PO SCH ×2 (08:00→20:06)
[2019-05-21] MEDS: QUEtiapine 25mg tablet PO SCH ×2 (08:00→20:06)
[2019-05-21] MEDS: amLODIPine 5mg tablet PO SCH (08:00)
--- NOTE | 2019-05-21 08:20 | NUR ---
Notified Dr. Sims of patient's low heart rate of 45, catapres held for now and notified; no further orders at this time.
[2019-05-21 08:30] VITALS: BP 122/85
[2019-05-21] MEDS: divalproex sod 125mg sprinkle cap PO SCH ×3 (08:30→17:28)
[2019-05-21 12:00] VITALS: BP 120/58
--- NOTE | 2019-05-21 18:25 | NUR ---
Patient in room [facility]. I have received report from TINA Kennedy and had the opportunity to ask questions and assume patient care.
[2019-05-21 19:00] VITALS: BP 152/74
[2019-05-21] MEDS: traZODone 50mg tablet PO SCH (20:06)
--- NOTE | 2019-05-22 06:21 | NUR ---
Problems reprioritized. Patient report given, questions answered & plan of care reviewed with TINA Kennedy.
--- NOTE | 2019-05-22 06:22 | NUR ---
Patient in room [facility]. I have received report from TINA Avila and had the opportunity to ask questions and assume patient care.
[2019-05-22 07:00] VITALS: BP 127/57
[2019-05-22] MEDS: amLODIPine 5mg tablet PO SCH (08:47)
[2019-05-22] MEDS: cloNIDine 0.1 mg tablet PO SCH ×2 (08:47→20:05)
[2019-05-22] MEDS: divalproex sod 125mg sprinkle cap PO SCH ×3 (08:47→17:11)
[2019-05-22] MEDS: QUEtiapine 25mg tablet PO SCH ×2 (08:47→20:05)
--- NOTE | 2019-05-22 18:32 | NUR ---
Problems reprioritized. Patient report given, questions answered & plan of care reviewed with TINA Avila.
--- NOTE | 2019-05-22 18:33 | NUR ---
Patient in room [facility]. I have received report from TINA Kennedy and had the opportunity to ask questions and assume patient care.
[2019-05-22] MEDS: traZODone 50mg tablet PO SCH (20:05)
--- NOTE | 2019-05-23 06:23 | NUR ---
Patient in room [facility]. I have received report from Austin WILDER and had the opportunity to ask questions and assume patient care.
--- NOTE | 2019-05-23 06:26 | NUR ---
Problems reprioritized. Patient report given, questions answered & plan of care reviewed with TINA Salazar.
[2019-05-23 08:00] VITALS: BP 113/41
[2019-05-23] MEDS: amLODIPine 5mg tablet PO SCH (08:00)
[2019-05-23] MEDS: QUEtiapine 25mg tablet PO SCH ×2 (08:00→20:06)
[2019-05-23] MEDS: cloNIDine 0.1 mg tablet PO SCH ×2 (08:00→20:06)
[2019-05-23] MEDS: divalproex sod 125mg sprinkle cap PO SCH ×3 (08:30→17:21)
[2019-05-23 11:00] VITALS: BP 108/41
--- NOTE | 2019-05-23 12:23 | NUR ---
Reassessment: Patient's PO intake fluctuates however recently averaging 75% PO intake likely meeting nutrient needs. [facility] 05/19, pt receiving prunes QD with lunches and with PRN bowel care. Will continue to follow and monitor need for further nutrition intervention. Recommendations: 1) Continue regular diet 2) Prunes QD at lunch 3) Routine bowel care 4) Wt per rx Addendum: 05/23/19 at [address] Amended: Links added.
--- NOTE | 2019-05-23 18:37 | NUR ---
Problems reprioritized. Patient report given, questions answered & plan of care reviewed with Austin WILDER.
--- NOTE | 2019-05-23 18:38 | NUR ---
Patient in room [facility]. I have received report from TINA Salazar and had the opportunity to ask questions and assume patient care.
[2019-05-23] MEDS: traZODone 50mg tablet PO SCH (20:06)
--- NOTE | 2019-05-24 06:11 | NUR ---
Problems reprioritized. Patient report given, questions answered & plan of care reviewed with TINA Salazar.
--- NOTE | 2019-05-24 06:51 | NUR ---
Patient in room [facility]. I have received report from Austin WILDER and had the opportunity to ask questions and assume patient care.
[2019-05-24 07:00] VITALS: BP 118/42
[2019-05-24] MEDS: cloNIDine 0.1 mg tablet PO SCH ×2 (08:00→19:34)
[2019-05-24] MEDS: amLODIPine 5mg tablet PO SCH (08:00)
[2019-05-24] MEDS: QUEtiapine 25mg tablet PO SCH ×2 (09:47→19:38)
[2019-05-24] MEDS: divalproex sod 125mg sprinkle cap PO SCH ×3 (09:47→17:36)
--- NOTE | 2019-05-24 09:56 | NUR ---
Holding Pt's amlodipine unitil clearedw9 Addendum: 05/24/19 at 0958 by Marie Frausto RN Holding amlodipine until talk to Dr. Sims, Pt's BP 118/42 HR 42.
[2019-05-24 11:00] VITALS: BP 136/58
--- NOTE | 2019-05-24 11:45 | NUR ---
Spoke to annie Garcia and she was OK with me holding amlodipine. Pt doing well. resting.
--- NOTE | 2019-05-24 18:49 | NUR ---
Problems reprioritized. Patient report given, questions answered & plan of care reviewed with Gretel WILDER.
[2019-05-24] MEDS: traZODone 50mg tablet PO SCH (19:37)
[2019-05-24 20:00] VITALS: BP 110/40
--- NOTE | 2019-05-25 02:00 | NUR ---
Patient has been awake all night. Patient wanders into other patient's room and uses their bathroom. Patient does not stay in bed to use the bed alarm. Nursing staff has been constantly in there cause her bed alarm is off or because she is outside the hallway wandering into other patient's room. Nurse and charge nurse ask one of the aides to stay in the room to accompany her.
[2019-05-25] MEDS: magnesium hydroxide 30ml (MOM) UD suspension PO PRN (06:00)
[2019-05-25 06:30] VITALS: BP 143/73
--- NOTE | 2019-05-25 06:45 | NUR ---
Patient in room [facility]. I have received report from TINA Majano and had the opportunity to ask questions and assume patient care.
--- NOTE | 2019-05-25 06:58 | NUR ---
Problems reprioritized. Patient report given, questions answered & plan of care reviewed with Ning RN.
[2019-05-25] MEDS: divalproex sod 125mg sprinkle cap PO SCH ×3 (10:39→18:06)
[2019-05-25] MEDS: cloNIDine 0.1 mg tablet PO SCH ×2 (10:39→22:02)
[2019-05-25] MEDS: amLODIPine 5mg tablet PO SCH (10:39)
[2019-05-25] MEDS: QUEtiapine 25mg tablet PO SCH ×2 (10:39→21:58)
[2019-05-25] MEDS: traZODone 50mg tablet PO SCH (21:59)
[2019-05-25 22:04] VITALS: BP 163/50
--- NOTE | 2019-05-26 01:00 | NUR ---
Patient made into a sitter.
--- NOTE | 2019-05-26 05:00 | NUR ---
Nurse and Aide shower patient this morning. Patient did well.
--- NOTE | 2019-05-26 05:30 | NUR ---
Patient made into a sitter @0100 till the rest of the shift. Patient stayed awake and did not want to stay in her room or bed. Patient would wander outside her room, down the halls, and into patients room.
--- NOTE | 2019-05-26 06:20 | NUR ---
Patient in room [facility]. I have received report from TINA Majano and had the opportunity to ask questions and assume patient care.
[2019-05-26 06:30] VITALS: BP 135/63
--- NOTE | 2019-05-26 06:32 | NUR ---
Problems reprioritized. Patient report given, questions answered & plan of care reviewed with Ning RN.
[2019-05-26] MEDS: cloNIDine 0.1 mg tablet PO SCH ×2 (08:00→20:24)
[2019-05-26] MEDS: divalproex sod 125mg sprinkle cap PO SCH ×3 (08:30→17:49)
[2019-05-26] MEDS: QUEtiapine 25mg tablet PO SCH ×2 (10:57→20:24)
[2019-05-26] MEDS: amLODIPine 5mg tablet PO SCH (11:20)
[2019-05-26 18:00] VITALS: BP 117/49
--- NOTE | 2019-05-26 18:20 | NUR ---
Problems reprioritized. Patient report given, questions answered & plan of care reviewed with TINA Peña.
[2019-05-26] MEDS: traZODone 50mg tablet PO SCH (20:24)
[2019-05-27 06:30] VITALS: BP 112/88
--- NOTE | 2019-05-27 06:31 | NUR ---
Report given to TINA Barclay
--- NOTE | 2019-05-27 06:35 | NUR ---
Patient in room [facility]. I have received report from TINA Peña and had the opportunity to ask questions and assume patient care.
[2019-05-27] MEDS: cloNIDine 0.1 mg tablet PO SCH ×2 (08:00→21:02)
[2019-05-27] MEDS: divalproex sod 125mg sprinkle cap PO SCH ×3 (10:11→18:06)
[2019-05-27] MEDS: QUEtiapine 25mg tablet PO SCH ×2 (10:11→21:02)
[2019-05-27] MEDS: amLODIPine 5mg tablet PO SCH (10:11)
--- NOTE | 2019-05-27 18:20 | NUR ---
Problems reprioritized. Patient report given, questions answered & plan of care reviewed with TINA Peña.
[2019-05-27] MEDS: traZODone 50mg tablet PO SCH (21:02)
--- NOTE | 2019-05-28 06:28 | NUR ---
Patient in room [facility]. I have received report from TINA Peña and had the opportunity to ask questions and assume patient care.
[2019-05-28 07:16] VITALS: BP 105/43
[2019-05-28] MEDS: cloNIDine 0.1 mg tablet PO SCH ×2 (08:00→20:00)
[2019-05-28] MEDS: amLODIPine 5mg tablet PO SCH (09:51)
[2019-05-28] MEDS: QUEtiapine 25mg tablet PO SCH ×2 (09:51→20:01)
[2019-05-28] MEDS: divalproex sod 125mg sprinkle cap PO SCH ×3 (09:51→17:30)
[2019-05-28 11:15] VITALS: BP 126/63
--- NOTE | 2019-05-28 13:54 | NUR ---
Reassessment: PO intake continues to fluctuate documented with 25% with refusal of two meals as well as 75-100% PO intake. Pt documented to be receiving assistance with meals now. Despite fluctuations in PO intake, pt still likely meeting nutrient needs. [facility] 05/25. Will continue to follow. Recommendations: 1) Continue regular diet 2) Prunes QD at lunch 3) Routine bowel care 4) Wt per rx Addendum: 05/28/19 at [address] Amended: Links added.
--- NOTE | 2019-05-28 18:31 | NUR ---
Problems reprioritized. Patient report given, questions answered & plan of care reviewed with TINA Payne.
--- NOTE | 2019-05-28 18:36 | NUR ---
Patient in room [facility]. I have received report from TINA Mota and had the opportunity to ask questions and assume patient care.
[2019-05-28] MEDS: traZODone 50mg tablet PO SCH (20:00)
--- NOTE | 2019-05-29 06:44 | NUR ---
Problems reprioritized. Patient report given, questions answered & plan of care reviewed with TINA Rios, and TINA Casey.
[2019-05-29 07:07] VITALS: BP 131/60
--- NOTE | 2019-05-29 07:35 | NUR ---
Patient in room [facility]. I have received report from ELIF WILDER and had the opportunity to ask questions and assume patient care.
[2019-05-29] MEDS: cloNIDine 0.1 mg tablet PO SCH ×2 (08:48→20:22)
[2019-05-29] MEDS: QUEtiapine 25mg tablet PO SCH ×2 (08:49→20:21)
[2019-05-29] MEDS: amLODIPine 5mg tablet PO SCH (08:49)
[2019-05-29] MEDS: divalproex sod 125mg sprinkle cap PO SCH ×4 (08:49→17:30)
[2019-05-29 11:00] VITALS: BP 115/58
--- NOTE | 2019-05-29 13:31 | NUR ---
Patient has refused physical assessment despite education.
--- NOTE | 2019-05-29 14:04 | NUR ---
Patient has not urinated since 0600. Previous output on prior shift checked with one void in noc shift. Patient encouraged to walk and void, patient declined. Patient encouraged to allow the performance of a bladder scan, patient denied. Will notify hospitalist.
--- NOTE | 2019-05-29 17:37 | NUR ---
pt took her 1730 med but spit it out.
--- NOTE | 2019-05-29 18:14 | NUR ---
Patient in room [facility]. I have received report from Carmela RN and TINA Hutchinson and had the opportunity to ask questions and assume patient care.
--- NOTE | 2019-05-29 19:01 | NUR ---
Problems reprioritized. Patient report given, questions answered & plan of care reviewed with TINA Payne.
[2019-05-29] MEDS: traZODone 50mg tablet PO SCH (20:22)
--- NOTE | 2019-05-30 06:00 | NUR ---
Received report from TINA ASENCIO
--- NOTE | 2019-05-30 06:30 | NUR ---
received report from anita bruner
--- NOTE | 2019-05-30 06:33 | NUR ---
Problems reprioritized. Patient report given, questions answered & plan of care reviewed with TINA Griffiths.
[2019-05-30] MEDS: cloNIDine 0.1 mg tablet PO SCH ×2 (08:43→20:00)
[2019-05-30] MEDS: divalproex sod 125mg sprinkle cap PO SCH ×3 (08:43→17:30)
[2019-05-30] MEDS: amLODIPine 5mg tablet PO SCH (08:44)
[2019-05-30] MEDS: QUEtiapine 25mg tablet PO SCH ×2 (08:44→21:26)
[2019-05-30 08:56] VITALS: BP 148/63
--- NOTE | 2019-05-30 18:30 | NUR ---
Report given to TINA MABRY
--- NOTE | 2019-05-30 18:35 | NUR ---
Patient in room [facility]. I have received report from JOYCELYN WILDER AND VANIA WILDER and had the opportunity to ask questions and assume patient care.
[2019-05-30] MEDS: traZODone 50mg tablet PO SCH (21:27)
--- NOTE | 2019-05-31 01:39 | NUR ---
Patient in room [facility]. I have received report from TINA Cannon and had the opportunity to ask questions and assume patient care.
--- NOTE | 2019-05-31 06:20 | NUR ---
Patient in room [facility]. I have received report from Katerina Lockett RN and had the opportunity to ask questions and assume patient care.
[2019-05-31 06:30] VITALS: BP 113/72
--- NOTE | 2019-05-31 06:31 | NUR ---
Problems reprioritized. Patient report given, questions answered & plan of care reviewed with TINA Barclay. Addendum: 05/31/19 at 0631 by Mariela Garcia RN Amended: Links added.
--- NOTE | 2019-05-31 09:00 | NUR ---
Problems reprioritized. Patient report given, questions answered & plan of care reviewed with TINA Heart.
--- NOTE | 2019-05-31 09:29 | NUR ---
Patient in room [facility]. I have received report from Ning WILDER and had the opportunity to ask questions and assume patient care.
[2019-05-31] MEDS: amLODIPine 5mg tablet PO SCH (09:46)
[2019-05-31] MEDS: QUEtiapine 25mg tablet PO SCH ×2 (09:46→20:58)
[2019-05-31] MEDS: cloNIDine 0.1 mg tablet PO SCH ×2 (09:46→20:00)
[2019-05-31] MEDS: divalproex sod 125mg sprinkle cap PO SCH ×3 (09:46→17:38)
--- NOTE | 2019-05-31 18:25 | NUR ---
Problems reprioritized. Patient report given, questions answered & plan of care reviewed with Isidra WILDER.
--- NOTE | 2019-05-31 18:27 | NUR ---
Patient in room [facility]. I have received report from TINA Heart and had the opportunity to ask questions and assume patient care. Sitter at bedside, pt was sleeping woke up briefly. took only few bites of dinner. Addendum: 05/31/19 at 1829 by Roman Mauricio RN Amended: Links added.
--- NOTE | 2019-05-31 18:27 | NUR ---
Problems reprioritized. Patient report given, questions answered & plan of care reviewed with Isidra WILDER.
[2019-05-31 18:28] VITALS: BP 126/59
[2019-05-31] MEDS: traZODone 50mg tablet PO SCH (20:00)
--- NOTE | 2019-05-31 20:30 | NUR ---
pt is sleeping at this time. will given medications when pt wakes up. Addendum: 05/31/19 at 2043 by Roman Mauricio RN Amended: Links added.
--- NOTE | 2019-05-31 21:02 | NUR ---
pt was awake, refused any medications tonight. will reassess later. sitter at bedside. pt staying in bed, resting with eyes closed. pt resistive to have full assessment, will not turn, open eyes or allow full skin assessment. turns self in bed with ease. Addendum: 05/31/19 at 2103 by Roman Mauricio RN Amended: Links added.
[2019-06-01] MEDS: traZODone 50mg tablet PO SCH ×2 (00:55→20:00)
[2019-06-01] MEDS: QUEtiapine 25mg tablet PO SCH ×3 (00:55→21:00)
--- NOTE | 2019-06-01 01:09 | NUR ---
pt awake, somewhat agitated, oob to bathroom voided without difficulty. wondering in room and hallway. sitter in room with patient. pt took meds with yogurt. drank some water, and ate a few potatoe chips. Addendum: 06/01/19 at 0110 by Roman Mauricio RN Amended: Links added.
--- NOTE | 2019-06-01 04:00 | NUR ---
Pt cosmo gets oob and starts to wonder in halls, bed alarm on sitter in room. Addendum: 06/01/19 at 0525 by Roman Mauricio RN Amended: Links added.
--- NOTE | 2019-06-01 06:32 | NUR ---
Problems reprioritized. Patient report given, questions answered & plan of care reviewed with TINA Salazar. Addendum: 06/01/19 at 0632 by Roman Mauricio RN Amended: Links added.
--- NOTE | 2019-06-01 06:35 | NUR ---
Patient in room [facility]. I have received report from Isidra WILDER and had the opportunity to ask questions and assume patient care.
[2019-06-01 07:00] VITALS: BP 140/73
[2019-06-01] MEDS: cloNIDine 0.1 mg tablet PO SCH ×2 (08:43→20:00)
[2019-06-01] MEDS: divalproex sod 125mg sprinkle cap PO SCH ×3 (08:43→17:52)
[2019-06-01] MEDS: amLODIPine 5mg tablet PO SCH (08:44)
[2019-06-01 11:00] VITALS: BP 97/49
--- NOTE | 2019-06-01 18:30 | NUR ---
Patient in room [facility]. I have received report from TINA Salazar and had the opportunity to ask questions and assume patient care. Addendum: 06/01/19 at 1913 by Roman Mauricio RN Amended: Links added.
--- NOTE | 2019-06-01 18:40 | NUR ---
Problems reprioritized. Patient report given, questions answered & plan of care reviewed with Isidra WILDER.
--- NOTE | 2019-06-01 19:00 | NUR ---
Pt refuses assessment, refuses any medications at this time. pt amb to [facility]. unknown last bm, last documented bm 05/25, pt refuses any laxtatives. Addendum: 06/02/19 at 0402 by Roman Mauricio RN Amended: Links added.
[2019-06-01 19:20] VITALS: BP 136/72
--- NOTE | 2019-06-01 20:48 | NUR ---
pt sleeping aroused easily refuses any meds or po at this time. Addendum: 06/01/19 at 2047 by Roman Mauricio RN Amended: Links added.
--- NOTE | 2019-06-02 02:30 | NUR ---
Pt awake, oob to bathroom, is getting up and down freq Addendum: 06/02/19 at 0354 by Roman Mauricio RN Amended: Links added.
--- NOTE | 2019-06-02 03:54 | NUR ---
Pt refuses to shower, or any interventions, in and out of bed occ. sitter in room. Addendum: 06/02/19 at 0355 by Roman Mauricio RN Amended: Links added.
--- NOTE | 2019-06-02 06:34 | NUR ---
Patient in room [facility]. I have received report from TINA Miner and had the opportunity to ask questions and assume patient care.
--- NOTE | 2019-06-02 06:54 | NUR ---
Problems reprioritized. Patient report given, questions answered & plan of care reviewed with TINA Mota Addendum: 06/02/19 at 0654 by Roman Mauricio RN Amended: Links added.
[2019-06-02] MEDS: QUEtiapine 25mg tablet PO SCH ×2 (07:59→19:56)
[2019-06-02] MEDS: divalproex sod 125mg sprinkle cap PO SCH ×3 (07:59→19:53)
[2019-06-02] MEDS: amLODIPine 5mg tablet PO SCH (07:59)
[2019-06-02] MEDS: cloNIDine 0.1 mg tablet PO SCH ×2 (07:59→20:00)
[2019-06-02 08:00] VITALS: BP 166/90
--- NOTE | 2019-06-02 12:31 | NUR ---
Reassessment: No significant changes in PO intake as it continues to fluctuate with 25% with most recent up to 75% PO intake. LBM 05/25. Per RN notes 06/01 unknown when patient's LBM was and pt refusing laxatives. Pt receiving prunes QD at lunch to assist with bowel regularity. Pt resistive to care per physical assessment. Will continue to follow. Recommendations: 1) Continue regular diet 2) Encourage PO intake; honor food preferences 3) Prunes QD at lunch 4) Routine bowel care 5) Wt per rx Addendum: 06/02/19 at [address] Amended: Links added.
--- NOTE | 2019-06-02 18:46 | NUR ---
Problems reprioritized. Patient report given, questions answered & plan of care reviewed with Katerina WILDER and hood Harvey RN.
[2019-06-02] MEDS: traZODone 50mg tablet PO SCH (19:56)
--- NOTE | 2019-06-02 20:00 | NUR ---
Patient refusing vitals. Unable to give catapress due to lack of vitals. Patient also refusing suppository and milk of mag for lack of BM since 05/25. Pt also refusing assessment.
--- NOTE | 2019-06-03 06:45 | NUR ---
Problems reprioritized. Patient report given, questions answered & plan of care reviewed with TINA Oh.
[2019-06-03 07:00] VITALS: BP 177/99
[2019-06-03 07:23] VITALS: BP 146/77
[2019-06-03] MEDS: divalproex sod 125mg sprinkle cap PO SCH ×3 (07:53→17:17)
[2019-06-03] MEDS: cloNIDine 0.1 mg tablet PO SCH ×2 (07:53→21:26)
[2019-06-03] MEDS: QUEtiapine 25mg tablet PO SCH ×2 (07:53→21:27)
[2019-06-03] MEDS: amLODIPine 5mg tablet PO SCH (07:54)
--- NOTE | 2019-06-03 08:27 | NUR ---
PAGER ID: [phone] MESSAGE: Rachel [id number] Pt. passed out and was unresponsive for 2 min. eyes open. Sternal rub performed and pt. responded. VS 110/66 HR 81 RR 14 96.4 oral temp. May we get labs on this pt.? Althea WILDER [id number]
[2019-06-03 09:37] LABS: BASOPHILS % (AUTO) 0.6 % (0-1); EOSINOPHILS # (AUTO) 0.3 X10'3 (0-0.9); EOSINOPHILS % (AUTO) 5.3 % (0-6); HEMATOCRIT 40.1 % (35.0-45.0); HEMOGLOBIN 13.6 g/dl (12.0-16.0); LYMPHOCYTES # (AUTO) 1.6 X10'3 (1.1-4.8); LYMPHOCYTES % (AUTO) 27.8 % (21-51); MEAN CORPUSCULAR HEMOGLOBIN 32.2 PG (27.0-31.0); MEAN CORPUSCULAR HGB CONC 33.9 g/dL (33.0-36.5); MONOCYTES # (AUTO) 0.4 X10'3 (0-0.9); MONOCYTES % (AUTO) 7.5 % (2-12); NEUTROPHILS # (AUTO) 3.5 X10'3 (1.8-7.7); NEUTROPHILS % (AUTO) 58.8 % (42-75); PLATELET COUNT 226 X10'3 (140-440); RED BLOOD COUNT 4.22 X10'6 (4.20-5.60); RED CELL DISTRIBUTION WIDTH 13.9 % (11.5-14.5); WHITE BLOOD COUNT 5.9 X10'3 (4.5-11.0)
[2019-06-03 09:59] LABS: ALANINE AMINOTRANSFERASE 27 U/L (12-78); ALBUMIN 3.8 G/DL (3.4-5.0); ALBUMIN/GLOBULIN RATIO 0.9 (1.1-1.5); ALKALINE PHOSPHATASE 81 IU/L (46-116); ANION GAP 5 (8-16); ASPARTATE AMINO TRANSFERASE 17 U/L (10-37); BILIRUBIN,TOTAL 0.4 MG/DL (0.1-1.0); BLOOD UREA NITROGEN 24 MG/DL (7-18); BUN/CREATININE RATIO 17.9 (6.6-38.0); CALCIUM 9.2 MG/DL (8.5-10.1); CHLORIDE 106 MMOL/L (99-107); CREATININE 1.34 MG/DL (0.40-0.90); GLUCOSE 95 MG/DL (70-104); SODIUM 142 MMOL/L (135-145); TOTAL CARBON DIOXIDE 30.6 MMOL/L (24-32); TOTAL PROTEIN 7.9 G/DL (6.4-8.2); eGFR 38 ML/MIN
[2019-06-03] MEDS: magnesium hydroxide 30ml (MOM) UD suspension PO PRN (13:43)
--- NOTE | 2019-06-03 18:35 | NUR ---
Gave report to Bonny WILDER.
[2019-06-03 19:30] VITALS: BP 120/71
[2019-06-03] MEDS: traZODone 50mg tablet PO SCH (21:26)
[2019-06-04 07:00] VITALS: BP 95/73
[2019-06-04] MEDS: amLODIPine 5mg tablet PO SCH (08:00)
[2019-06-04] MEDS: cloNIDine 0.1 mg tablet PO SCH ×2 (08:00→20:00)
[2019-06-04] MEDS: divalproex sod 125mg sprinkle cap PO SCH ×3 (08:16→16:47)
[2019-06-04] MEDS: QUEtiapine 25mg tablet PO SCH ×2 (08:16→20:51)
--- NOTE | 2019-06-04 18:34 | NUR ---
Gave report to Katerina Woo Rn.
--- NOTE | 2019-06-04 18:43 | NUR ---
Patient in room [facility]. I have received report from TINA Ramos and had the opportunity to ask questions and assume patient care. Addendum: 06/04/19 at 1843 by Mariela Garcia RN Amended: Links added.
[2019-06-04 20:00] VITALS: BP 103/49
[2019-06-04] MEDS: traZODone 50mg tablet PO SCH (20:50)
--- NOTE | 2019-06-05 06:38 | NUR ---
Problems reprioritized. Patient report given, questions answered & plan of care reviewed with TINA Salazar. Addendum: 06/05/19 at 0638 by Mariela Garcia RN Amended: Links added.
--- NOTE | 2019-06-05 07:06 | NUR ---
Patient in room [facility]. I have received report from Katerina Lockett RN and had the opportunity to ask questions and assume patient care.
[2019-06-05 08:00] VITALS: BP 128/48
[2019-06-05] MEDS: divalproex sod 125mg sprinkle cap PO SCH ×3 (09:37→17:52)
[2019-06-05] MEDS: QUEtiapine 25mg tablet PO SCH ×3 (09:38→21:00)
[2019-06-05] MEDS: cloNIDine 0.1 mg tablet PO SCH ×3 (09:42→20:09)
[2019-06-05] MEDS: amLODIPine 5mg tablet PO SCH (09:43)
--- NOTE | 2019-06-05 18:55 | NUR ---
Problems reprioritized. Patient report given, questions answered & plan of care reviewed with Austin WILDER.
--- NOTE | 2019-06-05 18:56 | NUR ---
Patient in room [facility]. I have received report from TINA Salazar and had the opportunity to ask questions and assume patient care.
[2019-06-05] MEDS: traZODone 50mg tablet PO SCH ×2 (20:00→20:09)
--- NOTE | 2019-06-06 06:44 | NUR ---
Problems reprioritized. Patient report given, questions answered & plan of care reviewed with TINA Salazar.
--- NOTE | 2019-06-06 06:45 | NUR ---
Patient in room [facility]. I have received report from Austin WILDER and had the opportunity to ask questions and assume patient care.
[2019-06-06 08:00] VITALS: BP 143/74
[2019-06-06] MEDS: cloNIDine 0.1 mg tablet PO SCH ×2 (10:14→20:00)
[2019-06-06] MEDS: amLODIPine 5mg tablet PO SCH (10:14)
[2019-06-06] MEDS: divalproex sod 125mg sprinkle cap PO SCH ×3 (10:14→17:30)
[2019-06-06] MEDS: QUEtiapine 25mg tablet PO SCH ×2 (10:14→21:00)
--- NOTE | 2019-06-06 18:54 | NUR ---
Problems reprioritized. Patient report given, questions answered & plan of care reviewed with Elmer WILDER.
--- NOTE | 2019-06-06 19:06 | NUR ---
Patient in room [facility]. I have received report from TINA Salazar and had the opportunity to ask questions and assume patient care.
[2019-06-06] MEDS: traZODone 50mg tablet PO SCH (20:00)
--- NOTE | 2019-06-07 06:41 | NUR ---
Problems reprioritized. Patient report given, questions answered & plan of care reviewed with TINA Oh.
[2019-06-07 07:00] VITALS: BP 141/66
[2019-06-07] MEDS: cloNIDine 0.1 mg tablet PO SCH ×2 (08:42→20:28)
[2019-06-07] MEDS: divalproex sod 125mg sprinkle cap PO SCH ×4 (08:42→16:35)
[2019-06-07] MEDS: amLODIPine 5mg tablet PO SCH (08:42)
[2019-06-07] MEDS: QUEtiapine 25mg tablet PO SCH ×2 (08:42→20:29)
--- NOTE | 2019-06-07 16:26 | NUR ---
Reassessment: Pt PO improved to 75-100% meals past 4 days meeting needs. LBM 06/06. Remains ALOC currently AOx1 w/ severe dementia likely Alzheimer's per MD note. Will continue to monitor. Recommendations: 1) Continue regular diet 2) Encourage PO intake; honor food preferences 3) Prunes QD at lunch 4) Routine bowel care 5) Wt per rx Addendum: 06/07/19 at [address] Amended: Links added.
--- NOTE | 2019-06-07 18:27 | NUR ---
Pt. in bed resting comfortably with rise and fall of chest, report given to oncoming RN Elmer
--- NOTE | 2019-06-07 18:48 | NUR ---
Patient in room [facility]. I have received report from TINA Oh and had the opportunity to ask questions and assume patient care. Patient was ambulating with sitter, in no apparent distress.
[2019-06-07] MEDS: traZODone 50mg tablet PO SCH (20:28)
--- NOTE | 2019-06-08 06:32 | NUR ---
Problems reprioritized. Patient report given, questions answered & plan of care reviewed with TINA Gillette.
[2019-06-08 07:20] VITALS: BP 133/45
[2019-06-08] MEDS: cloNIDine 0.1 mg tablet PO SCH ×2 (08:00→20:00)
[2019-06-08] MEDS: amLODIPine 5mg tablet PO SCH (08:00)
[2019-06-08] MEDS: QUEtiapine 25mg tablet PO SCH ×2 (08:40→21:00)
[2019-06-08] MEDS: divalproex sod 125mg sprinkle cap PO SCH ×3 (08:40→17:22)
--- NOTE | 2019-06-08 18:26 | NUR ---
Problems reprioritized. Patient report given, questions answered & plan of care reviewed with TINA Payne.
--- NOTE | 2019-06-08 18:45 | NUR ---
Patient in room [facility]. I have received report from TINA Gillette and had the opportunity to ask questions and assume patient care.
[2019-06-08] MEDS: traZODone 50mg tablet PO SCH (20:00)
--- NOTE | 2019-06-09 06:19 | NUR ---
Problems reprioritized. Patient report given, questions answered & plan of care reviewed with TINA Gillette.
[2019-06-09 07:00] VITALS: BP 136/65
[2019-06-09] MEDS: cloNIDine 0.1 mg tablet PO SCH ×2 (08:00→20:34)
[2019-06-09] MEDS: amLODIPine 5mg tablet PO SCH (08:00)
[2019-06-09] MEDS: divalproex sod 125mg sprinkle cap PO SCH ×3 (08:52→17:07)
[2019-06-09] MEDS: QUEtiapine 25mg tablet PO SCH ×2 (08:52→20:33)
--- NOTE | 2019-06-09 12:00 | NUR ---
Patient showered. Tolerated well.
[2019-06-09] MEDS: acetaminophen 325mg tablet PO PRN (12:41)
--- NOTE | 2019-06-09 18:14 | NUR ---
Problems reprioritized. Patient report given, questions answered & plan of care reviewed with Katerina Lockett RN.
--- NOTE | 2019-06-09 18:59 | NUR ---
Patient in room [facility]. I have received report from TINA Torres and had the opportunity to ask questions and assume patient care. Addendum: 06/09/19 at 1859 by Mariela Garcia RN Amended: Links added.
[2019-06-09] MEDS: traZODone 50mg tablet PO SCH (20:33)
--- NOTE | 2019-06-10 08:00 | NUR ---
refused am vitals
[2019-06-10] MEDS: divalproex sod 125mg sprinkle cap PO SCH ×3 (08:30→17:46)
--- NOTE | 2019-06-10 11:45 | NUR ---
Pt AM meds late with Wilton Rios RN. Pt slightly uncooperative today a well. Missed AM dose, will continue with 1230 dosage
[2019-06-10] MEDS: QUEtiapine 25mg tablet PO SCH ×2 (11:52→20:13)
[2019-06-10] MEDS: cloNIDine 0.1 mg tablet PO SCH ×2 (11:52→20:13)
[2019-06-10] MEDS: amLODIPine 5mg tablet PO SCH (11:52)
--- NOTE | 2019-06-10 18:50 | NUR ---
Patient in room [facility]. I have received report from VANIA/TINA ROMO's and had the opportunity to ask questions and assume patient care. Addendum: 06/10/19 at 1850 by Mariela Garcia RN Amended: Links added.
[2019-06-10] MEDS: traZODone 50mg tablet PO SCH (20:13)
--- NOTE | 2019-06-10 20:39 | NUR ---
Patient was rounded on hourly, no distress, needs frequently assessed.
--- NOTE | 2019-06-11 06:51 | NUR ---
Problems reprioritized. Patient report given, questions answered & plan of care reviewed with Martínez WILDER's. Addendum: 06/11/19 at 0652 by Mariela Garcia RN Amended: Links added.
--- NOTE | 2019-06-11 06:51 | NUR ---
Patient in room [facility]. I have received report from Katerina Lockett RN and had the opportunity to ask questions and assume patient care.
[2019-06-11] MEDS: cloNIDine 0.1 mg tablet PO SCH ×2 (08:00→20:44)
--- NOTE | 2019-06-11 08:00 | NUR ---
Pt refused AM vitals.
[2019-06-11] MEDS: QUEtiapine 25mg tablet PO SCH ×2 (09:53→20:44)
[2019-06-11] MEDS: divalproex sod 125mg sprinkle cap PO SCH ×3 (09:53→18:21)
[2019-06-11] MEDS: amLODIPine 5mg tablet PO SCH (09:53)
[2019-06-11 11:11] VITALS: BP 148/65
--- NOTE | 2019-06-11 18:18 | NUR ---
Problems reprioritized. Patient report given, questions answered & plan of care reviewed with Katerina Lockett RN.
[2019-06-11] MEDS: traZODone 50mg tablet PO SCH (20:43)
--- NOTE | 2019-06-12 06:35 | NUR ---
Problems reprioritized. Patient report given, questions answered & plan of care reviewed with TINA Soliz's. Addendum: 06/12/19 at 0636 by Mariela Garcia RN Amended: Links added.
--- NOTE | 2019-06-12 06:55 | NUR ---
Patient in room [facility]. I have received report from Katerina Lockett RN and had the opportunity to ask questions and assume patient care.
[2019-06-12 07:16] VITALS: BP 132/60
[2019-06-12] MEDS: QUEtiapine 25mg tablet PO SCH ×2 (07:55→20:50)
[2019-06-12] MEDS: amLODIPine 5mg tablet PO SCH (07:57)
[2019-06-12] MEDS: divalproex sod 125mg sprinkle cap PO SCH ×3 (07:57→20:49)
[2019-06-12] MEDS: cloNIDine 0.1 mg tablet PO SCH ×2 (07:57→20:49)
--- NOTE | 2019-06-12 18:55 | NUR ---
Patient in room [facility]. I have received report from Svetlana Goodson and had the opportunity to ask questions and assume patient care. Addendum: 06/12/19 at 2202 by Whitney Veliz RN Amended: Links added.
--- NOTE | 2019-06-12 19:08 | NUR ---
Problems reprioritized. Patient report given, questions answered & plan of care reviewed with TINA Olson.
--- NOTE | 2019-06-12 20:40 | NUR ---
pt given hs meds tolerated well prior to this was up in the bello walking with staff. pt pleasant and redirectible at this time.
[2019-06-12] MEDS: traZODone 50mg tablet PO SCH (20:49)
[2019-06-12] MEDS: magnesium hydroxide 30ml (MOM) UD suspension PO PRN (20:59)
--- NOTE | 2019-06-12 22:00 | NUR ---
pt resting without s&s of distress at this time.
--- NOTE | 2019-06-13 | NUR ---
resting no changes
--- NOTE | 2019-06-13 01:42 | NUR ---
resting eyes closed without s&s of distress at this time.
--- NOTE | 2019-06-13 03:35 | NUR ---
resting without changes.
--- NOTE | 2019-06-13 04:57 | NUR ---
resting no change.
--- NOTE | 2019-06-13 06:45 | NUR ---
Patient in room [facility]. I have received report from Mariia WILDER and had the opportunity to ask questions and assume patient care.
--- NOTE | 2019-06-13 06:54 | NUR ---
Problems reprioritized. Patient report given, questions answered & plan of care reviewed with Abena Goodson. Addendum: 06/13/19 at 0654 by Whitney Veliz RN Amended: Links added.
[2019-06-13] MEDS: amLODIPine 5mg tablet PO SCH ×2 (08:00→13:16)
[2019-06-13] MEDS: cloNIDine 0.1 mg tablet PO SCH ×2 (08:00→20:00)
[2019-06-13] MEDS: divalproex sod 125mg sprinkle cap PO SCH ×3 (10:44→18:11)
[2019-06-13] MEDS: QUEtiapine 25mg tablet PO SCH ×2 (10:44→21:00)
--- NOTE | 2019-06-13 11:47 | NUR ---
Dr Taylor notified of Amlodipine and Catapres held due to pt's HR 44 and unable to obtain BP. Orders received to give Amlodipine and continue to hold Catapres. Will continue to monitor.
[2019-06-13 12:00] VITALS: BP 124/67
--- NOTE | 2019-06-13 18:37 | NUR ---
Problems reprioritized. Patient report given, questions answered & plan of care reviewed with Whitney WILDER.
--- NOTE | 2019-06-13 18:46 | NUR ---
Patient in room [facility]. I have received report from XAVIER WILDER and had the opportunity to ask questions and assume patient care. Addendum: 06/13/19 at 1847 by Whitney Veliz RN Amended: Links added.
--- NOTE | 2019-06-13 19:30 | NUR ---
pt fell asleep before able to give hs meds resting without s&s of distress pt very powell before falling asleep and mean in statements. will wait till awakens on her own.
[2019-06-13] MEDS: traZODone 50mg tablet PO SCH (20:00)
--- NOTE | 2019-06-13 21:30 | NUR ---
pt remains resting eyes closed without changes.
--- NOTE | 2019-06-13 22:23 | NUR ---
remains resting without change.
--- NOTE | 2019-06-14 00:20 | NUR ---
resting without changes.
--- NOTE | 2019-06-14 01:16 | NUR ---
pt remains resting without changes.
--- NOTE | 2019-06-14 02:26 | NUR ---
pt awoke up walking in the bello with the PSYCHOMETRICIAN. used the brp.
--- NOTE | 2019-06-14 03:31 | NUR ---
resting without changes at this time.
--- NOTE | 2019-06-14 04:35 | NUR ---
resting without changes.
--- NOTE | 2019-06-14 05:52 | NUR ---
pt awoke and up ambulating in the bello with staff.
--- NOTE | 2019-06-14 06:39 | NUR ---
Problems reprioritized. Patient report given, questions answered & plan of care reviewed with Leta Goodson. Addendum: 06/14/19 at 0640 by Whitney Veliz RN Amended: Links added.
[2019-06-14 07:25] VITALS: BP 149/68
[2019-06-14] MEDS: divalproex sod 125mg sprinkle cap PO SCH ×3 (07:27→16:53)
[2019-06-14] MEDS: QUEtiapine 25mg tablet PO SCH ×2 (07:27→19:14)
[2019-06-14] MEDS: cloNIDine 0.1 mg tablet PO SCH ×2 (07:28→19:15)
[2019-06-14] MEDS: amLODIPine 5mg tablet PO SCH (07:28)
[2019-06-14 11:00] VITALS: BP 141/61
--- NOTE | 2019-06-14 16:00 | NUR ---
Reassessment: Pt PO fluctuates but 75% avg overall meeting needs. LBM 06/13. No nutrition concerns at this time. Will continue to monitor. Recommendations: 1) Continue regular diet 2) Encourage PO intake; honor food preferences 3) Prunes QD at lunch 4) Routine bowel care 5) Wt per rx Addendum: 06/14/19 at [address] Amended: Links added.
--- NOTE | 2019-06-14 18:07 | NUR ---
Problems reprioritized. Patient report given, questions answered & plan of care reviewed with TINA Olson.
--- NOTE | 2019-06-14 18:18 | NUR ---
Patient in room [facility]. I have received report from PATTI WILDER and had the opportunity to ask questions and assume patient care. Addendum: 06/14/19 at 1819 by Whitney Veliz RN Amended: Links added.
[2019-06-14] MEDS: traZODone 50mg tablet PO SCH (19:16)
--- NOTE | 2019-06-14 19:22 | NUR ---
pt in room mumbling and fidgeting with liens in the room had another bm. took hs meds and given a popsicle for a snack. took pills with applesauce. tolerated well.
[2019-06-14 19:45] VITALS: BP 130/70
--- NOTE | 2019-06-14 21:27 | NUR ---
pt resting without changes.
--- NOTE | 2019-06-14 22:48 | NUR ---
resting eyes closed without changes or s&s of distress at this time.
--- NOTE | 2019-06-15 00:06 | NUR ---
Problems reprioritized. Patient report given, questions answered & plan of care reviewed with Gretel Goodson. Addendum: 06/15/19 at 0007 by Whitney Veliz RN Amended: Links added.
--- NOTE | 2019-06-15 00:10 | NUR ---
Assume patient care from Whitney WILDER.
[2019-06-15] MEDS ORDERED: HYDROmorphone inj. 0.5 MG/0.5 ML DISP.SYRIN IV PRN (02:05)
--- NOTE | 2019-06-15 04:55 | NUR ---
Patient been sleeping well tonight. No behaviors noted so far. Will continue with care.
--- NOTE | 2019-06-15 06:07 | NUR ---
Problems reprioritized. Patient report given, questions answered & plan of care reviewed with Yola WILDER.
--- NOTE | 2019-06-15 07:04 | NUR ---
Patient in room [facility]. I have received report from Gretel WILDER and had the opportunity to ask questions and assume patient care.
[2019-06-15 08:00] VITALS: BP 132/63
[2019-06-15] MEDS: divalproex sod 125mg sprinkle cap PO SCH ×3 (08:30→17:54)
[2019-06-15] MEDS: amLODIPine 5mg tablet PO SCH (10:39)
[2019-06-15] MEDS: cloNIDine 0.1 mg tablet PO SCH ×2 (10:40→19:42)
[2019-06-15] MEDS: QUEtiapine 25mg tablet PO SCH ×2 (10:40→19:40)
--- NOTE | 2019-06-15 18:52 | NUR ---
Patient in room [facility]. I have received report from HUSAM WILDER and had the opportunity to ask questions and assume patient care. Addendum: 06/15/19 at 1853 by Whitney Veliz RN Amended: Links added.
--- NOTE | 2019-06-15 18:54 | NUR ---
Problems reprioritized. Patient report given, questions answered & plan of care reviewed with Whitney WILDER.
[2019-06-15 19:00] VITALS: BP 120/85
[2019-06-15] MEDS: traZODone 50mg tablet PO SCH (19:42)
--- NOTE | 2019-06-15 19:50 | NUR ---
pt given hs meds afraid of being poisoned bending over with abd cramps like she needs to poop but afraid to . did not want to sit on toilet long enough to poop only void and pass some gas. pacing in the room. sitter in the room with her.
--- NOTE | 2019-06-15 20:45 | NUR ---
pt dozed off to sleep no s&s of distress.
--- NOTE | 2019-06-15 22:45 | NUR ---
remains resting without changes.
--- NOTE | 2019-06-15 23:16 | NUR ---
pt resting eyes closed without changes.
--- NOTE | 2019-06-16 00:51 | NUR ---
resting eyes closed without changes at this time.
--- NOTE | 2019-06-16 01:45 | NUR ---
resting without s&s of distress at this time.
--- NOTE | 2019-06-16 03:40 | NUR ---
resting eyes closed without changes or s&s of distress.
--- NOTE | 2019-06-16 05:07 | NUR ---
pt resting eyes closed without changes at this time.
--- NOTE | 2019-06-16 06:09 | NUR ---
Problems reprioritized. Patient report given, questions answered & plan of care reviewed with Delma Goodson. Addendum: 06/16/19 at 0610 by Whitney Veliz RN Amended: Links added.
--- NOTE | 2019-06-16 06:51 | NUR ---
Patient in room [facility]. I have received report from Whitney WILDER and had the opportunity to ask questions and assume patient care.
[2019-06-16 08:00] VITALS: BP 130/79
[2019-06-16] MEDS: divalproex sod 125mg sprinkle cap PO SCH ×3 (09:16→17:48)
[2019-06-16] MEDS: amLODIPine 5mg tablet PO SCH (09:16)
[2019-06-16] MEDS: cloNIDine 0.1 mg tablet PO SCH ×2 (09:16→20:19)
[2019-06-16] MEDS: QUEtiapine 25mg tablet PO SCH ×2 (09:16→20:19)
[2019-06-16 12:00] VITALS: BP 137/74
[2019-06-16 18:00] VITALS: BP 141/67
--- NOTE | 2019-06-16 18:44 | NUR ---
Patient in room [facility]. I have received report from TINA Aceves and had the opportunity to ask questions and assume patient care.
--- NOTE | 2019-06-16 19:18 | NUR ---
Problems reprioritized. Patient report given, questions answered & plan of care reviewed with Elmer WILDER.
[2019-06-16] MEDS: traZODone 50mg tablet PO SCH (20:16)
--- NOTE | 2019-06-17 06:00 | NUR ---
Patient in room [facility]. I have received report from TINA Payne and had the opportunity to ask questions and assume patient care.
--- NOTE | 2019-06-17 06:02 | NUR ---
Problems reprioritized. Patient report given, questions answered & plan of care reviewed with TINA Davila.
[2019-06-17 08:00] VITALS: BP 146/72
[2019-06-17] MEDS: QUEtiapine 25mg tablet PO SCH ×2 (09:34→21:00)
[2019-06-17] MEDS: divalproex sod 125mg sprinkle cap PO SCH ×4 (09:34→17:30)
[2019-06-17] MEDS: amLODIPine 5mg tablet PO SCH (09:34)
[2019-06-17] MEDS: cloNIDine 0.1 mg tablet PO SCH ×2 (09:35→21:00)
[2019-06-17 18:00] VITALS: BP 145/57
--- NOTE | 2019-06-17 19:04 | NUR ---
Patient in room [facility]. I have received report from TINA Davila and had the opportunity to ask questions and assume patient care.
--- NOTE | 2019-06-17 20:19 | NUR ---
Problems reprioritized. Patient report given, questions answered & plan of care reviewed with TINA Payne.
[2019-06-17] MEDS: traZODone 50mg tablet PO SCH (21:02)
--- NOTE | 2019-06-18 06:00 | NUR ---
Patient in room [facility]. I have received report from TINA Payne and had the opportunity to ask questions and assume patient care.
--- NOTE | 2019-06-18 06:31 | NUR ---
Problems reprioritized. Patient report given, questions answered & plan of care reviewed with TINA Davila.
[2019-06-18 08:00] VITALS: BP 115/68
[2019-06-18] MEDS: QUEtiapine 25mg tablet PO SCH ×2 (09:50→20:20)
[2019-06-18] MEDS: divalproex sod 125mg sprinkle cap PO SCH ×3 (09:50→17:16)
[2019-06-18] MEDS: cloNIDine 0.1 mg tablet PO SCH ×2 (09:50→20:20)
[2019-06-18] MEDS: amLODIPine 5mg tablet PO SCH (09:51)
[2019-06-18] MEDS: acetaminophen 325mg tablet PO PRN (16:58)
--- NOTE | 2019-06-18 18:00 | NUR ---
Problems reprioritized. Patient report given, questions answered & plan of care reviewed with TINA Huang.
[2019-06-18] MEDS: traZODone 50mg tablet PO SCH (20:20)
--- NOTE | 2019-06-19 06:30 | NUR ---
Problems reprioritized. Patient report given, questions answered & plan of care reviewed with Abena WILDER.
--- NOTE | 2019-06-19 06:59 | NUR ---
Patient in room [facility]. I have received report from Sal WILDER and had the opportunity to ask questions and assume patient care.
[2019-06-19 08:00] VITALS: BP 129/61
[2019-06-19] MEDS: cloNIDine 0.1 mg tablet PO SCH ×2 (08:00→20:00)
[2019-06-19] MEDS: amLODIPine 5mg tablet PO SCH (08:00)
[2019-06-19] MEDS: QUEtiapine 25mg tablet PO SCH ×2 (09:02→20:33)
[2019-06-19] MEDS: divalproex sod 125mg sprinkle cap PO SCH ×3 (09:02→17:35)
--- NOTE | 2019-06-19 18:20 | NUR ---
Problems reprioritized. Patient report given, questions answered & plan of care reviewed with Sal WILDER.
[2019-06-19] MEDS: traZODone 50mg tablet PO SCH (20:33)
--- NOTE | 2019-06-20 06:31 | NUR ---
Problems reprioritized. Patient report given, questions answered & plan of care reviewed with Saira WILDER.
--- NOTE | 2019-06-20 06:55 | NUR ---
Patient in room [facility]. I have received report from Sal WILDER and had the opportunity to ask questions and assume patient care.
[2019-06-20 06:57] VITALS: BP 151/60
[2019-06-20] MEDS: cloNIDine 0.1 mg tablet PO SCH (08:03)
[2019-06-20] MEDS: amLODIPine 5mg tablet PO SCH (08:05)
[2019-06-20] MEDS: QUEtiapine 25mg tablet PO SCH ×2 (08:05→20:28)
[2019-06-20] MEDS: divalproex sod 125mg sprinkle cap PO SCH ×3 (08:05→17:51)
--- NOTE | 2019-06-20 18:21 | NUR ---
All cares given patient up and about with sitter, sleeping on and off during day. Mostly compliant with cares. report given to Sal WILDER
[2019-06-20] MEDS: traZODone 50mg tablet PO SCH (20:28)
--- NOTE | 2019-06-21 06:17 | NUR ---
Patient in room [facility]. I have received report from RUTH ANN WILDER and had the opportunity to ask questions and assume patient care.
--- NOTE | 2019-06-21 06:23 | NUR ---
Problems reprioritized. Patient report given, questions answered & plan of care reviewed with Saira WILDER.
[2019-06-21 07:04] LABS: BASOPHILS % (AUTO) 0.5 % (0-1); EOSINOPHILS # (AUTO) 0.3 X10'3 (0-0.9); EOSINOPHILS % (AUTO) 6.4 % (0-6); HEMOGLOBIN 11.7 g/dl (12.0-16.0); LYMPHOCYTES # (AUTO) 1.8 X10'3 (1.1-4.8); LYMPHOCYTES % (AUTO) 42.4 % (21-51); MEAN CORPUSCULAR HEMOGLOBIN 32.3 PG (27.0-31.0); MEAN CORPUSCULAR HGB CONC 34.3 g/dL (33.0-36.5); MEAN PLATELET VOLUME 8.3 FL (7.4-10.4); MONOCYTES # (AUTO) 0.4 X10'3 (0-0.9); MONOCYTES % (AUTO) 10.6 % (2-12); NEUTROPHILS # (AUTO) 1.7 X10'3 (1.8-7.7); NEUTROPHILS % (AUTO) 40.1 % (42-75); PLATELET COUNT 177 X10'3 (140-440); RED BLOOD COUNT 3.61 X10'6 (4.20-5.60); RED CELL DISTRIBUTION WIDTH 13.2 % (11.5-14.5); WHITE BLOOD COUNT 4.2 X10'3 (4.5-11.0)
[2019-06-21 07:45] LABS: ALANINE AMINOTRANSFERASE 15 U/L (12-78); ALBUMIN 3.1 G/DL (3.4-5.0); ALBUMIN/GLOBULIN RATIO 0.9 (1.1-1.5); ALKALINE PHOSPHATASE 69 IU/L (46-116); ANION GAP 7 (8-16); ASPARTATE AMINO TRANSFERASE 10 U/L (10-37); BILIRUBIN,TOTAL 0.3 MG/DL (0.1-1.0); BLOOD UREA NITROGEN 23 MG/DL (7-18); BUN/CREATININE RATIO 21.1 (6.6-38.0); CALCIUM 8.5 MG/DL (8.5-10.1); CHLORIDE 109 MMOL/L (99-107); CREATININE 1.09 MG/DL (0.40-0.90); GLUCOSE 88 MG/DL (70-104); SODIUM 143 MMOL/L (135-145); TOTAL CARBON DIOXIDE 27.4 MMOL/L (24-32); TOTAL PROTEIN 6.4 G/DL (6.4-8.2); eGFR 49 ML/MIN
[2019-06-21] MEDS: divalproex sod 125mg sprinkle cap PO SCH ×3 (08:33→17:39)
[2019-06-21] MEDS: QUEtiapine 25mg tablet PO SCH ×2 (08:33→20:32)
[2019-06-21] MEDS: amLODIPine 5mg tablet PO SCH (08:33)
[2019-06-21 11:00] VITALS: BP 126/83
--- NOTE | 2019-06-21 16:58 | NUR ---
Reassessment: Pt PO decreased from prior now 50-75% avg meals; still fluctuates given Alzheimer's. LBM 06/14; LENA d/w RN regarding routine bowel care for constipation per MD approval. Constipation likely effecting PO. Will continue to monitor. Recommendations: 1) Continue regular diet 2) Encourage PO intake; honor food preferences 3) Prunes QD at lunch 4) Routine bowel care 5) Wt per rx Addendum: 06/21/19 at [address] Amended: Links added.
[2019-06-21 18:00] VITALS: BP 180/75
--- NOTE | 2019-06-21 18:30 | NUR ---
Patient in room [facility]. I have received report from Saira WILDER and had the opportunity to ask questions and assume patient care. Pt is sitting up in bed eating her dinner. No signs of distress, will continue to monitor.
--- NOTE | 2019-06-21 18:37 | NUR ---
patient up and about ambulating with sitter, all cares given. Patient compliant with care.report given to Ariella WILDER
--- NOTE | 2019-06-21 18:47 | NUR ---
Patient in room [facility]. I have received report from Saira WILDER and had the opportunity to ask questions and assume patient care.
[2019-06-21] MEDS: traZODone 50mg tablet PO SCH (20:32)
--- NOTE | 2019-06-22 06:00 | NUR ---
Patient in room [facility]. I have received report from TINA Kramer and had the opportunity to ask questions and assume patient care. Addendum: 06/22/19 at 2025 by Blanca Lea RN Wrong patient, I received report from TINA Krishnan
--- NOTE | 2019-06-22 06:03 | NUR ---
Problems reprioritized. Patient report given, questions answered & plan of care reviewed with Blanca WILDER.
--- NOTE | 2019-06-22 06:03 | NUR ---
Problems reprioritized. Patient report given, questions answered & plan of care reviewed with Blanca WILDER.
[2019-06-22 08:00] VITALS: BP 136/78
[2019-06-22] MEDS: QUEtiapine 25mg tablet PO SCH ×3 (08:00→21:08)
[2019-06-22] MEDS: amLODIPine 5mg tablet PO SCH ×2 (08:00→09:47)
[2019-06-22] MEDS: divalproex sod 125mg sprinkle cap PO SCH ×4 (08:30→17:20)
[2019-06-22] MEDS ORDERED: hyDRALAzine 10mg tablet PO PRN (09:05)
--- NOTE | 2019-06-22 18:00 | NUR ---
Problems reprioritized. Patient report given, questions answered & plan of care reviewed with TINA Krishnan.
--- NOTE | 2019-06-22 18:13 | NUR ---
Patient in room [facility]. I have received report from Blanca WILDER and had the opportunity to ask questions and assume patient care.
--- NOTE | 2019-06-22 19:15 | NUR ---
Patient in room [facility]. I have received report from Blanca WILDER and had the opportunity to ask questions and assume patient care.
[2019-06-22 20:00] VITALS: BP 121/103
[2019-06-22] MEDS: traZODone 50mg tablet PO SCH (21:08)
--- NOTE | 2019-06-23 05:57 | NUR ---
Problems reprioritized. Patient report given, questions answered & plan of care reviewed with Blanca WILDER.
--- NOTE | 2019-06-23 05:59 | NUR ---
Problems reprioritized. Patient report given, questions answered & plan of care reviewed with Blanca WILDER.
[2019-06-23 08:00] VITALS: BP 143/75
[2019-06-23] MEDS: amLODIPine 5mg tablet PO SCH ×2 (08:00→09:25)
[2019-06-23] MEDS: QUEtiapine 25mg tablet PO SCH ×3 (08:00→20:38)
[2019-06-23] MEDS: divalproex sod 125mg sprinkle cap PO SCH ×4 (08:30→17:02)
--- NOTE | 2019-06-23 19:33 | NUR ---
Patient in room [facility]. I have received report from Blanca WILDER and had the opportunity to ask questions and assume patient care.
--- NOTE | 2019-06-23 19:34 | NUR ---
Patient in room [facility]. I have received report from Blanca WILDER and had the opportunity to ask questions and assume patient care.
[2019-06-23 20:00] VITALS: BP 135/63
[2019-06-23] MEDS: traZODone 50mg tablet PO SCH (20:38)
--- NOTE | 2019-06-24 06:35 | NUR ---
Problems reprioritized. Patient report given, questions answered & plan of care reviewed with Ruthie WILDER.
--- NOTE | 2019-06-24 06:37 | NUR ---
Problems reprioritized. Patient report given, questions answered & plan of care reviewed with Ruthie WILDER.
[2019-06-24 07:48] VITALS: BP 168/60
[2019-06-24] MEDS: amLODIPine 5mg tablet PO SCH (10:56)
[2019-06-24] MEDS: QUEtiapine 25mg tablet PO SCH ×2 (10:57→20:19)
[2019-06-24] MEDS: divalproex sod 125mg sprinkle cap PO SCH ×3 (10:57→17:53)
--- NOTE | 2019-06-24 18:16 | NUR ---
Problems reprioritized. Patient report given, questions answered & plan of care reviewed with Bonny WILDER.
--- NOTE | 2019-06-24 18:47 | NUR ---
Patient in room [facility]. I have received report from TINA Hendricks and had the opportunity to ask questions and assume patient care.
[2019-06-24] MEDS: traZODone 50mg tablet PO SCH (20:18)
--- NOTE | 2019-06-25 06:06 | NUR ---
Problems reprioritized. Patient report given, questions answered & plan of care reviewed with TINA Hendricks.
[2019-06-25] MEDS: divalproex sod 125mg sprinkle cap PO SCH ×3 (08:49→16:18)
[2019-06-25] MEDS: amLODIPine 5mg tablet PO SCH (08:49)
[2019-06-25] MEDS: QUEtiapine 25mg tablet PO SCH ×2 (08:49→22:00)
[2019-06-25 09:14] VITALS: BP 137/94
[2019-06-25] MEDS ORDERED: mag hydrox/Alum hydrox/simeth 30ml oral suspension PO PRN (10:30)
--- NOTE | 2019-06-25 14:03 | NUR ---
Reassessment: Patient previously averaging 50% however most recently up to 75-100% meeting nutrient needs. LBM 06/22. Pt continues with PRN bowel care and prunes q lunch. No further nutrition intervention warranted at this time. Will continue to follow. Recommendations: 1) Continue regular diet 2) Encourage PO intake; honor food preferences 3) Prunes QD at lunch 4) Routine bowel care 5) Wt per rx Addendum: 06/25/19 at [address] Amended: Links added.
[2019-06-25] MEDS: simethicone 80mg chew tab PO PRN (16:16)
--- NOTE | 2019-06-25 18:14 | NUR ---
Problems reprioritized. Patient report given, questions answered & plan of care reviewed with Bonny WILDER.
--- NOTE | 2019-06-25 18:20 | NUR ---
Patient in room [facility]. I have received report from TINA Hendricks and had the opportunity to ask questions and assume patient care.
[2019-06-25] MEDS: traZODone 50mg tablet PO SCH (22:00)
--- NOTE | 2019-06-26 06:59 | NUR ---
Problems reprioritized. Patient report given, questions answered & plan of care reviewed with TINA Oh.
[2019-06-26 07:00] VITALS: BP 97/70
[2019-06-26] MEDS: amLODIPine 5mg tablet PO SCH (08:00)
[2019-06-26] MEDS: magnesium hydroxide 30ml (MOM) UD suspension PO PRN (08:00)
[2019-06-26] MEDS: divalproex sod 125mg sprinkle cap PO SCH ×3 (08:01→17:37)
[2019-06-26] MEDS: QUEtiapine 25mg tablet PO SCH ×2 (08:01→21:30)
[2019-06-26 12:00] VITALS: BP 139/64
[2019-06-26 16:35] LABS: BASOPHILS % (AUTO) 0.9 % (0-1); EOSINOPHILS # (AUTO) 0.2 X10'3 (0-0.9); EOSINOPHILS % (AUTO) 5.5 % (0-6); HEMATOCRIT 37.8 % (35.0-45.0); HEMOGLOBIN 12.8 g/dl (12.0-16.0); LYMPHOCYTES # (AUTO) 1.3 X10'3 (1.1-4.8); LYMPHOCYTES % (AUTO) 29.4 % (21-51); MEAN CORPUSCULAR HGB CONC 33.9 g/dL (33.0-36.5); MEAN CORPUSCULAR VOLUME 94.5 FL (78-98); MEAN PLATELET VOLUME 8.1 FL (7.4-10.4); MONOCYTES # (AUTO) 0.5 X10'3 (0-0.9); NEUTROPHILS # (AUTO) 2.4 X10'3 (1.8-7.7); NEUTROPHILS % (AUTO) 53.2 % (42-75); PLATELET COUNT 216 X10'3 (140-440); RED CELL DISTRIBUTION WIDTH 13.1 % (11.5-14.5); WHITE BLOOD COUNT 4.6 X10'3 (4.5-11.0)
[2019-06-26 16:54] LABS: ALANINE AMINOTRANSFERASE 20 U/L (12-78); ALBUMIN 3.6 G/DL (3.4-5.0); ALBUMIN/GLOBULIN RATIO 0.9 (1.1-1.5); ALKALINE PHOSPHATASE 79 IU/L (46-116); ASPARTATE AMINO TRANSFERASE 12 U/L (10-37); BILIRUBIN,TOTAL 0.3 MG/DL (0.1-1.0); BLOOD UREA NITROGEN 29 MG/DL (7-18); BUN/CREATININE RATIO 21.8 (6.6-38.0); CALCIUM 8.7 MG/DL (8.5-10.1); CREATININE 1.33 MG/DL (0.40-0.90); GLUCOSE 98 MG/DL (70-104); POTASSIUM 4.5 MMOL/L (3.5-5.1); SODIUM 138 MMOL/L (135-145); TOTAL CARBON DIOXIDE 28.9 MMOL/L (24-32); TOTAL PROTEIN 7.4 G/DL (6.4-8.2); eGFR 39 ML/MIN
--- NOTE | 2019-06-26 16:57 | NUR ---
MD aware pt. has been disgruntled more than usual, sleeping a lot, low urine output, and refusing meals. Labs ordered.
[2019-06-26 17:08] LABS: ANION GAP 3 (8-16); CHLORIDE 106 MMOL/L (99-107)
--- NOTE | 2019-06-26 18:38 | NUR ---
Gave report to Bonny WILDER
--- NOTE | 2019-06-26 18:43 | NUR ---
Patient in room [facility]. I have received report from TINA Oh and had the opportunity to ask questions and assume patient care.
[2019-06-26] MEDS: traZODone 50mg tablet PO SCH (21:30)
--- NOTE | 2019-06-27 06:37 | NUR ---
Problems reprioritized. Patient report given, questions answered & plan of care reviewed with TINA Oh.
[2019-06-27 08:00] VITALS: BP 147/64
[2019-06-27] MEDS: amLODIPine 5mg tablet PO SCH (08:00)
[2019-06-27] MEDS: QUEtiapine 25mg tablet PO SCH ×2 (08:00→19:32)
[2019-06-27] MEDS: divalproex sod 125mg sprinkle cap PO SCH ×3 (08:30→17:59)
[2019-06-27] MEDS ORDERED: normal saline 1000ml 1,000 ML IV ONE (11:00)
--- NOTE | 2019-06-27 12:02 | NUR ---
Pt. refusing vitals signs at this time. aware.
--- NOTE | 2019-06-27 12:32 | NUR ---
Encouraging oral fluids. Sitter aware.
[2019-06-27] MEDS: simethicone 80mg chew tab PO PRN (13:10)
[2019-06-27] MEDS: acetaminophen 325mg tablet PO PRN (13:11)
[2019-06-27 16:30] LABS: CLARITY,URINE SLIGHTLY CLOUDY (Clear); COLOR,URINE YELLOW (Yellow); GLUCOSE, URINE NEGATIVE (Neg); KETONES,URINE NEGATIVE (Neg); LEUKOCYTE ESTERASE ,URINE MODERATE (Neg); NITRITES, URINE POSITIVE (Neg); OCCULT BLOOD,URINE LARGE (Neg); PROTEIN,URINE 100 mg/dl (Neg); UA COLLECTION TYPE CLN CATCH MIDSTREAM; UROBILINOGEN,URINE 0.2 E.U/dL (0.2-1.0)
[2019-06-27 16:37] LABS: BACTERIA,URINE 4+ /HPF (Neg); SQUAMOUS EPITHELIAL CELL,UR MODERATE /LPF (FEW); WBC,URINE TNTC /HPF (0-4)
[2019-06-27 16:38] LABS: MUCUS STRANDS FEW /LPF (Neg); TRANSITIONAL EPI CELLS,URINE MODERATE /HPF
--- NOTE | 2019-06-27 16:45 | NUR ---
MD Chance made aware of positive UA. Antibiotics ordered.
[2019-06-27 16:58] VITALS: BP 148/64
--- NOTE | 2019-06-27 16:59 | NUR ---
Pt. refusing to have orthostatic vitals taken.
--- NOTE | 2019-06-27 18:25 | NUR ---
GAVE REPORT TO JIN WILDER
--- NOTE | 2019-06-27 18:33 | NUR ---
Patient in room [facility]. I have received report from Althea and had the opportunity to ask questions and assume patient care. Addendum: 06/27/19 at 1835 by Whitney Veliz RN Amended: Links added.
--- NOTE | 2019-06-27 18:57 | NUR ---
Patient in room [facility]. I have received report from HEATHER WILDER'S and had the opportunity to ask questions and assume patient care. Addendum: 06/27/19 at 1900 by Whitney Veliz RN Amended: Links added.
--- NOTE | 2019-06-27 19:25 | NUR ---
pt took hs meds in applesauce and tolerated well.
[2019-06-27] MEDS: sulfamethoxazole/trimethoprim DS (800/160mg) tablet PO SCH (19:32)
[2019-06-27] MEDS: traZODone 50mg tablet PO SCH (19:32)
[2019-06-27 19:40] VITALS: BP 183/85
[2019-06-27 20:00] VITALS: BP_SYST 160; BP_SYST 175; BP_SYST 183; BP_DIAS 79; BP_DIAS 85; BP_DIAS 91
--- NOTE | 2019-06-27 20:30 | NUR ---
pt laid down in bed closed eyes resting without changes at this time.
--- NOTE | 2019-06-27 21:00 | NUR ---
pt resting eyes closed without changes or s&S of distress at this time.
--- NOTE | 2019-06-27 23:00 | NUR ---
pt awoke ambulating in the room. sitter in the room and redirected pt.
--- NOTE | 2019-06-28 01:00 | NUR ---
pt resting eyes closed without changes.
--- NOTE | 2019-06-28 02:47 | NUR ---
pt resting eyes closed without changes.
--- NOTE | 2019-06-28 05:06 | NUR ---
pt resting eyes closed without changes at this time.
--- NOTE | 2019-06-28 06:05 | NUR ---
Problems reprioritized. Patient report given, questions answered & plan of care reviewed with YUNG WILDER. Addendum: 06/28/19 at 0605 by Whitney Veliz RN Amended: Links added.
--- NOTE | 2019-06-28 06:38 | NUR ---
Patient in room [facility]. I have received report from TINA ABDI and had the opportunity to ask questions and assume patient care.
--- NOTE | 2019-06-28 06:51 | NUR ---
Patient in room [facility]. I have received report from TINA ABDI and had the opportunity to ask questions and assume patient care.
[2019-06-28 07:00] VITALS: BP 130/64
[2019-06-28] MEDS: sulfamethoxazole/trimethoprim DS (800/160mg) tablet PO SCH ×2 (08:00→19:45)
[2019-06-28] MEDS: QUEtiapine 25mg tablet PO SCH ×2 (08:11→19:46)
[2019-06-28] MEDS: amLODIPine 5mg tablet PO SCH (08:11)
[2019-06-28] MEDS: divalproex sod 125mg sprinkle cap PO SCH ×3 (08:11→17:14)
--- NOTE | 2019-06-28 09:33 | NUR ---
ATTEMPTED TO GIVE PATIENT SEPTRA DS THREE TIMES, PATIENT SIP OUT TWICE AND WOULD NOT TAKE THE THIRD TIME, PATIENT REFUSED TO TAKE MED
--- NOTE | 2019-06-28 10:39 | NUR ---
PATIENT REFUSED ORTHOSTATIC VITALS: PATIENT IS NOT ABLE TO STAY STILL, PATIENT ALSO UNWILLING TO STAND, ALSO PATIENT IS UNABLE TO UNDERSTAND THE RATIONAL TO WHY THE ORTHOSTATIC VITALS NEED TO BE TAKEN SO SHE ASKED US TO STOP Addendum: 06/28/19 at 1044 by Winifred Bustillo RN Amended: Links added.
--- NOTE | 2019-06-28 18:06 | NUR ---
Problems reprioritized. Patient report given, questions answered & plan of care reviewed with TINA ABDI.
--- NOTE | 2019-06-28 18:19 | NUR ---
Patient in room [facility]. I have received report from YUNG WILDER and had the opportunity to ask questions and assume patient care. Addendum: 06/28/19 at 1819 by Whitney Veliz RN Amended: Links added.
--- NOTE | 2019-06-28 19:18 | NUR ---
resting eyes closed without changes or s&s of distress at this time.
[2019-06-28] MEDS: traZODone 50mg tablet PO SCH (19:45)
--- NOTE | 2019-06-28 20:05 | NUR ---
pt awoke took hs meds with applesauce in a cheerful mood. sitter at the bedside at this time.
[2019-06-28 20:38] VITALS: BP_SYST 123; BP_SYST 152; BP_SYST 162; BP_DIAS 62; BP_DIAS 70; BP_DIAS 74
[2019-06-28 20:39] VITALS: BP 123/62
--- NOTE | 2019-06-28 22:05 | NUR ---
pt resting eyes closed without s&s of distress at this time.
--- NOTE | 2019-06-28 23:19 | NUR ---
awoke up to brp to void. drinking lemon flavored water with encouragement.
--- NOTE | 2019-06-28 23:56 | NUR ---
pt resting eyes closed no s&s of distress at this time.
--- NOTE | 2019-06-29 01:20 | NUR ---
pt resting without changes.
--- NOTE | 2019-06-29 03:20 | NUR ---
resting without changes.
--- NOTE | 2019-06-29 04:16 | NUR ---
resting no changes.
--- NOTE | 2019-06-29 06:06 | NUR ---
Problems reprioritized. Patient report given, questions answered & plan of care reviewed with GEORGINA WILDER. Addendum: 06/29/19 at 0606 by Whitney Veliz RN Amended: Links added.
--- NOTE | 2019-06-29 06:15 | NUR ---
Patient in room [facility]. I have received report from TINA Olson and had the opportunity to ask questions and assume patient care.
--- NOTE | 2019-06-29 06:15 | NUR ---
Problems reprioritized. Patient report given, questions answered & plan of care reviewed with GEORGINA WILDER. Addendum: 06/29/19 at 0616 by Whitney Veliz RN Amended: Links added.
[2019-06-29 08:30] VITALS: BP 134/68
[2019-06-29] MEDS: sulfamethoxazole/trimethoprim DS (800/160mg) tablet PO SCH ×2 (08:57→19:43)
[2019-06-29] MEDS: QUEtiapine 25mg tablet PO SCH ×2 (08:57→19:43)
[2019-06-29] MEDS: divalproex sod 125mg sprinkle cap PO SCH ×3 (08:57→17:42)
[2019-06-29] MEDS: amLODIPine 5mg tablet PO SCH (08:58)
--- NOTE | 2019-06-29 18:22 | NUR ---
Problems reprioritized. Patient report given, questions answered & plan of care reviewed with TINA Payne.
[2019-06-29] MEDS: traZODone 50mg tablet PO SCH (19:47)
[2019-06-29 20:07] VITALS: BP_SYST 149; BP_SYST 152; BP_SYST 161; BP_DIAS 56; BP_DIAS 62; BP_DIAS 77
--- NOTE | 2019-06-30 06:06 | NUR ---
Problems reprioritized. Patient report given, questions answered & plan of care reviewed with TINA Hollins.
--- NOTE | 2019-06-30 06:10 | NUR ---
Patient in room [facility]. I have received report from TINA Kramer and had the opportunity to ask questions and assume patient care.
[2019-06-30 07:49] VITALS: BP 143/70
[2019-06-30] MEDS: amLODIPine 5mg tablet PO SCH (08:00)
[2019-06-30] MEDS: sulfamethoxazole/trimethoprim DS (800/160mg) tablet PO SCH ×2 (08:00→20:11)
[2019-06-30] MEDS: divalproex sod 125mg sprinkle cap PO SCH ×3 (08:30→17:58)
[2019-06-30] MEDS: QUEtiapine 25mg tablet PO SCH ×2 (09:54→20:10)
--- NOTE | 2019-06-30 10:30 | NUR ---
Patient refusing orthostatic vitals this am, also spat out and refusing morning medications. will continue to monitor.
--- NOTE | 2019-06-30 18:35 | NUR ---
Patient in room [facility]. I have received report from TINA Hollins and had the opportunity to ask questions and assume patient care.
--- NOTE | 2019-06-30 18:46 | NUR ---
Problems reprioritized. Patient report given, questions answered & plan of care reviewed with TINA Payne.
[2019-06-30 20:00] VITALS: BP_SYST 105; BP_SYST 130; BP_DIAS 68; BP_DIAS 77; BP_DIAS 79
[2019-06-30] MEDS: traZODone 50mg tablet PO SCH (20:11)
--- NOTE | 2019-07-01 06:26 | NUR ---
Patient in room [facility]. I have received report from TINA Payne and had the opportunity to ask questions and assume patient care.
--- NOTE | 2019-07-01 06:26 | NUR ---
Problems reprioritized. Patient report given, questions answered & plan of care reviewed with TINA Hollins.
[2019-07-01] MEDS: sulfamethoxazole/trimethoprim DS (800/160mg) tablet PO SCH ×2 (08:00→20:00)
[2019-07-01] MEDS: divalproex sod 125mg sprinkle cap PO SCH ×3 (09:11→17:10)
[2019-07-01] MEDS: QUEtiapine 25mg tablet PO SCH ×2 (09:11→20:18)
[2019-07-01] MEDS: amLODIPine 5mg tablet PO SCH (09:11)
--- NOTE | 2019-07-01 10:00 | NUR ---
Pt refusing orthostatic vitals.
--- NOTE | 2019-07-01 14:50 | NUR ---
Reassessment: Pt PO 50-75% continues to fluctuate w/ AOx1. LENA d/w RN given pt has not has scaled wt this admit; admit 02/27/19 and would be beneficial to determine if any wt changes. LBM 06/28. Will continue to monitor. Recommendations: 1) Continue regular diet 2) Encourage PO intake; honor food preferences 3) Prunes QD at lunch 4) Routine bowel care 5) Wt per rx Addendum: 07/01/19 at [address] Amended: Links added.
--- NOTE | 2019-07-01 18:22 | NUR ---
Problems reprioritized. Patient report given, questions answered & plan of care reviewed with TINA Payne.
--- NOTE | 2019-07-01 18:40 | NUR ---
Patient in room [facility]. I have received report from TINA Hollins and had the opportunity to ask questions and assume patient care.
[2019-07-01] MEDS: traZODone 50mg tablet PO SCH (20:20)
--- NOTE | 2019-07-01 20:20 | NUR ---
Patient spit out her Septra but she took her other medications.
--- NOTE | 2019-07-01 20:39 | NUR ---
Patient is refusing orthostatic vitals for this shift.
--- NOTE | 2019-07-02 06:29 | NUR ---
Report given to TINA Martinez
--- NOTE | 2019-07-02 06:30 | NUR ---
Patient in room [facility]. I have received report from Elmer WILDER and had the opportunity to ask questions and assume patient care.
[2019-07-02 07:31] VITALS: BP 133/58
[2019-07-02] MEDS: QUEtiapine 25mg tablet PO SCH ×2 (07:48→20:03)
[2019-07-02] MEDS: amLODIPine 5mg tablet PO SCH (07:48)
[2019-07-02] MEDS: divalproex sod 125mg sprinkle cap PO SCH ×3 (07:48→17:40)
[2019-07-02] MEDS: acetaminophen 325mg tablet PO PRN (16:00)
--- NOTE | 2019-07-02 18:15 | NUR ---
Patient in room [facility]. I have received report from TINA Martinez and had the opportunity to ask questions and assume patient care.
--- NOTE | 2019-07-02 18:22 | NUR ---
Problems reprioritized. Patient report given, questions answered & plan of care reviewed with Suly WILDER.
[2019-07-02] MEDS: traZODone 50mg tablet PO SCH (20:03)
--- NOTE | 2019-07-02 20:15 | NUR ---
Patient spit out 1 tablet of Trazodone 50mg but swallowed the rest of ordered medications with apple sauce.
--- NOTE | 2019-07-03 06:10 | NUR ---
Patient in room [facility]. I have received report from TINA Draper and had the opportunity to ask questions and assume patient care.
--- NOTE | 2019-07-03 06:33 | NUR ---
Problems reprioritized. Patient report given, questions answered & plan of care reviewed with TINA Barclay.
[2019-07-03 07:30] VITALS: BP 114/63
--- NOTE | 2019-07-03 07:30 | NUR ---
Pt refused orthostatic VS
[2019-07-03] MEDS: amLODIPine 5mg tablet PO SCH (07:35)
[2019-07-03] MEDS: divalproex sod 125mg sprinkle cap PO SCH ×3 (07:35→16:46)
[2019-07-03] MEDS: QUEtiapine 25mg tablet PO SCH ×2 (07:35→20:03)
--- NOTE | 2019-07-03 18:10 | NUR ---
Problems reprioritized. Patient report given, questions answered & plan of care reviewed with TINA Draper.
--- NOTE | 2019-07-03 18:24 | NUR ---
Patient in room [facility]. I have received report from TINA Barclay and had the opportunity to ask questions and assume patient care.
[2019-07-03] MEDS: traZODone 50mg tablet PO SCH ×2 (20:03→20:18)
--- NOTE | 2019-07-03 20:10 | NUR ---
Patient spit out 1 tablet of Desyrel 50 mg but swallowed the rest of scheduled meds with applesauce.
[2019-07-03] MEDS: acetaminophen 325mg tablet PO PRN (20:20)
--- NOTE | 2019-07-03 20:21 | NUR ---
Administered 1 tablet Trazodone 50mg and 1 tablet Acetaminophen 325mg for pain with yogurt. Pt swallowed meds
--- NOTE | 2019-07-04 06:30 | NUR ---
Patient in room [facility]. I have received report from TINA Draper and had the opportunity to ask questions and assume patient care.
--- NOTE | 2019-07-04 06:35 | NUR ---
Problems reprioritized. Patient report given, questions answered & plan of care reviewed with TINA Barclay.
[2019-07-04 11:00] VITALS: BP 155/53
[2019-07-04] MEDS: QUEtiapine 25mg tablet PO SCH ×2 (11:11→20:29)
[2019-07-04] MEDS: amLODIPine 5mg tablet PO SCH (11:11)
[2019-07-04] MEDS: divalproex sod 125mg sprinkle cap PO SCH ×2 (11:13→17:34)
--- NOTE | 2019-07-04 11:13 | NUR ---
Med non-admin note:Depakote 1230 dose not given due to 0830 dose given @ 1113 due to pt sleeping & pt would not take AM meds prior to this time.
[2019-07-04 18:00] VITALS: BP 119/88
--- NOTE | 2019-07-04 18:45 | NUR ---
Problems reprioritized. Patient report given, questions answered & plan of care reviewed with TINA Zimmerman.
--- NOTE | 2019-07-04 19:16 | NUR ---
Patient in room [facility]. I have received report from LUCY WILDER and had the opportunity to ask questions and assume patient care.
[2019-07-04] MEDS: acetaminophen 325mg tablet PO PRN (20:25)
--- NOTE | 2019-07-05 06:15 | NUR ---
Patient in room [facility]. I have received report from TINA Zimmerman and had the opportunity to ask questions and assume patient care.
--- NOTE | 2019-07-05 06:23 | NUR ---
Problems reprioritized. Patient report given, questions answered & plan of care reviewed with Ning RN.Patient is resting and showed no sign of aggression.
[2019-07-05 08:30] VITALS: BP 165/94
[2019-07-05] MEDS: amLODIPine 5mg tablet PO SCH (08:46)
[2019-07-05] MEDS: QUEtiapine 25mg tablet PO SCH ×2 (08:46→21:42)
[2019-07-05] MEDS: acetaminophen 325mg tablet PO PRN (08:46)
[2019-07-05] MEDS: divalproex sod 125mg sprinkle cap PO SCH ×3 (08:46→17:59)
--- NOTE | 2019-07-05 18:15 | NUR ---
Problems reprioritized. Patient report given, questions answered & plan of care reviewed with TINA Kramer.
[2019-07-05] MEDS: traZODone 50mg tablet PO SCH (21:42)
--- NOTE | 2019-07-06 06:30 | NUR ---
Problems reprioritized. Patient report given, questions answered & plan of care reviewed with Ruthie WILDER.
[2019-07-06] MEDS: divalproex sod 125mg sprinkle cap PO SCH ×3 (10:36→17:01)
[2019-07-06] MEDS: QUEtiapine 25mg tablet PO SCH ×2 (10:36→20:32)
[2019-07-06] MEDS: amLODIPine 5mg tablet PO SCH (10:36)
[2019-07-06 10:39] VITALS: BP 164/73
--- NOTE | 2019-07-06 18:22 | NUR ---
Problems reprioritized. Patient report given, questions answered & plan of care reviewed with Nia WILDER.
[2019-07-06 18:30] VITALS: BP 129/61
--- NOTE | 2019-07-06 18:30 | NUR ---
Patient in room [facility]. I have received report from Ruthie WILDER and had the opportunity to ask questions and assume patient care.
[2019-07-06] MEDS: traZODone 50mg tablet PO SCH (20:31)
--- NOTE | 2019-07-07 06:23 | NUR ---
Problems reprioritized. Patient report given, questions answered & plan of care reviewed with Juan RN.
--- NOTE | 2019-07-07 06:30 | NUR ---
Patient in room [facility]. I have received report from Nia WILDER and had the opportunity to ask questions and assume patient care.
[2019-07-07] MEDS: divalproex sod 125mg sprinkle cap PO SCH ×3 (08:30→19:39)
[2019-07-07 11:00] VITALS: BP 129/83
--- NOTE | 2019-07-07 11:00 | NUR ---
Patient showering today with tech.
[2019-07-07] MEDS: QUEtiapine 25mg tablet PO SCH ×2 (11:14→19:39)
[2019-07-07] MEDS: amLODIPine 5mg tablet PO SCH (11:14)
--- NOTE | 2019-07-07 12:49 | NUR ---
Problems reprioritized. Patient report given, questions answered & plan of care reviewed with Ruthie WILDER.
--- NOTE | 2019-07-07 15:45 | NUR ---
Patient is working on her meal, picking at it a little at a time. Addendum: 07/07/19 at 1545 by Ruthie Singh RN Amended: Links added.
--- NOTE | 2019-07-07 18:30 | NUR ---
5Patient in room [facility]. I have received report from Ruthie WILDER and had the opportunity to ask questions and assume patient care.
--- NOTE | 2019-07-07 18:44 | NUR ---
Problems reprioritized. Patient report given, questions answered & plan of care reviewed with Nia WILDER.
[2019-07-07] MEDS: traZODone 50mg tablet PO SCH (19:39)
--- NOTE | 2019-07-08 06:24 | NUR ---
Patient in room [facility]. I have received report from Nia WILDER and had the opportunity to ask questions and assume patient care.
--- NOTE | 2019-07-08 06:25 | NUR ---
Problems reprioritized. Patient report given, questions answered & plan of care reviewed with Saira WILDER.
[2019-07-08 07:00] VITALS: BP 147/71
[2019-07-08] MEDS: QUEtiapine 25mg tablet PO SCH ×2 (10:36→20:37)
[2019-07-08] MEDS: amLODIPine 5mg tablet PO SCH (10:36)
[2019-07-08] MEDS: divalproex sod 125mg sprinkle cap PO SCH ×3 (10:37→17:51)
--- NOTE | 2019-07-08 15:15 | NUR ---
Reassessment: Pt continues with fluctuating PO intake down to 25-50% however most recently back up to 75-100% meeting nutrient needs. RN obtained standing scaled weight today, updated wt is 60.8 kg. Patient's weight has remained stable throughout LOS. LBM 2/. No further nutrition intervention warranted at this time. Will continue to follow. Recommendations: 1) Continue regular diet 2) Encourage PO intake; honor food preferences 3) Prunes QD at lunch 4) Routine bowel care 5) Wt per rx Addendum: 07/08/19 at [address] Amended: Links added.
--- NOTE | 2019-07-08 18:15 | NUR ---
Patient in room [facility]. I have received report from TINA Chávez and had the opportunity to ask questions and assume patient care.
--- NOTE | 2019-07-08 18:17 | NUR ---
patient up and about all cares given. Report given to Nisa WILDER
[2019-07-08] MEDS: traZODone 50mg tablet PO SCH (20:36)
--- NOTE | 2019-07-09 06:21 | NUR ---
Problems reprioritized. Patient report given, questions answered & plan of care reviewed with TINA Chávez.
--- NOTE | 2019-07-09 06:44 | NUR ---
Patient in room [facility]. I have received report from Nisa WILDER and had the opportunity to ask questions and assume patient care.
[2019-07-09 08:00] VITALS: BP 130/57
[2019-07-09] MEDS: divalproex sod 125mg sprinkle cap PO SCH ×3 (10:39→17:42)
[2019-07-09] MEDS: amLODIPine 5mg tablet PO SCH (10:39)
[2019-07-09] MEDS: QUEtiapine 25mg tablet PO SCH ×2 (10:40→19:50)
[2019-07-09] MEDS: magnesium hydroxide 30ml (MOM) UD suspension PO PRN (16:28)
--- NOTE | 2019-07-09 18:01 | NUR ---
All cares given. patient showered.Problems reprioritized. Patient report given, questions answered & plan of care reviewed with Casey WILDER.
[2019-07-09] MEDS: traZODone 50mg tablet PO SCH (19:50)
--- NOTE | 2019-07-10 06:20 | NUR ---
Patient in room [facility]. I have received report from Casey WILDER and had the opportunity to ask questions and assume patient care.
[2019-07-10 07:00] VITALS: BP 107/41
[2019-07-10] MEDS: QUEtiapine 25mg tablet PO SCH ×2 (10:50→20:46)
[2019-07-10] MEDS: divalproex sod 125mg sprinkle cap PO SCH ×3 (10:50→17:43)
[2019-07-10] MEDS: amLODIPine 5mg tablet PO SCH (10:51)
--- NOTE | 2019-07-10 11:53 | NUR ---
All cares given. Meds taken. patient resting on bed at this time. Report given to Svetlana WILDER
--- NOTE | 2019-07-10 12:00 | NUR ---
Patient in room [facility]. I have received report from Siara WILDER and had the opportunity to ask questions and assume patient care.
[2019-07-10] MEDS: magnesium hydroxide 30ml (MOM) UD suspension PO PRN (13:21)
[2019-07-10 18:00] VITALS: BP 92/51
--- NOTE | 2019-07-10 18:28 | NUR ---
Problems reprioritized. Patient report given, questions answered & plan of care reviewed with Casey WILDER.
[2019-07-10] MEDS: traZODone 50mg tablet PO SCH (20:46)
--- NOTE | 2019-07-11 06:09 | NUR ---
Patient in room [facility]. I have received report from Casey WILDER and had the opportunity to ask questions and assume patient care.
[2019-07-11 08:50] VITALS: BP 122/53
[2019-07-11] MEDS: divalproex sod 125mg sprinkle cap PO SCH ×3 (08:51→17:21)
[2019-07-11] MEDS: amLODIPine 5mg tablet PO SCH (08:51)
[2019-07-11] MEDS: QUEtiapine 25mg tablet PO SCH ×2 (08:51→19:58)
[2019-07-11 18:00] VITALS: BP 126/88
--- NOTE | 2019-07-11 18:48 | NUR ---
Problems reprioritized. Patient report given, questions answered & plan of care reviewed with Casey WILDER.
[2019-07-11] MEDS: traZODone 50mg tablet PO SCH (19:58)
[2019-07-11] MEDS: docusate sodium 100mg/10ml UD cup PO SCH (20:00)
--- NOTE | 2019-07-12 06:46 | NUR ---
Patient in room [facility]. I have received report from Casey WILDER and had the opportunity to ask questions and assume patient care.
[2019-07-12] MEDS: divalproex sod 125mg sprinkle cap PO SCH ×3 (08:30→17:05)
--- NOTE | 2019-07-12 09:20 | NUR ---
Patient sleeping, VS will be taken when awake. Addendum: 07/12/19 at 0921 by Ruthie Singh RN Amended: Links added.
--- NOTE | 2019-07-12 09:20 | NUR ---
Patient sleeping, Physical Assessment will be completed when patient is awake. Addendum: 07/12/19 at 0921 by Ruthie Singh RN Amended: Links added.
[2019-07-12 13:07] VITALS: BP 137/79
[2019-07-12] MEDS: docusate sodium 100mg/10ml UD cup PO SCH ×2 (13:25→20:36)
[2019-07-12] MEDS: amLODIPine 5mg tablet PO SCH (13:25)
[2019-07-12] MEDS: QUEtiapine 25mg tablet PO SCH ×2 (13:26→20:34)
--- NOTE | 2019-07-12 17:59 | NUR ---
Problems reprioritized. Patient report given, questions answered & plan of care reviewed with Casey WILDER.
[2019-07-12] MEDS: traZODone 50mg tablet PO SCH (20:35)
--- NOTE | 2019-07-13 06:37 | NUR ---
Patient in room [facility]. I have received report from TINA QIU and had the opportunity to ask questions and assume patient care.
[2019-07-13 08:00] VITALS: BP 173/81
[2019-07-13] MEDS: divalproex sod 125mg sprinkle cap PO SCH ×3 (08:30→17:30)
--- NOTE | 2019-07-13 08:30 | NUR ---
PATIENT REFUSED ASSESSMENT
--- NOTE | 2019-07-13 08:30 | NUR ---
PATIENT REFUSED ASSESSMENT Addendum: 07/13/19 at 1933 by Winifred Bustillo RN Amended: Links added.
[2019-07-13] MEDS: docusate sodium 100mg/10ml UD cup PO SCH ×2 (15:03→21:48)
[2019-07-13] MEDS: QUEtiapine 25mg tablet PO SCH ×2 (15:03→21:49)
[2019-07-13] MEDS: amLODIPine 5mg tablet PO SCH (15:03)
--- NOTE | 2019-07-13 19:11 | NUR ---
Problems reprioritized. Patient report given, questions answered & plan of care reviewed with SABNIA RN.
--- NOTE | 2019-07-13 19:30 | NUR ---
pt becoming more agitated upon approaching her with routine assessment; sitter at beside states she has been physically combative towards her...
[2019-07-13] MEDS: traZODone 50mg tablet PO SCH (21:49)
--- NOTE | 2019-07-14 07:15 | NUR ---
Patient in room [facility]. I have received report from Pat RN and had the opportunity to ask questions and assume patient care.
[2019-07-14 08:00] VITALS: BP 123/60
--- NOTE | 2019-07-14 09:17 | NUR ---
Patient sleeping, will take VS and give medications when awake
[2019-07-14] MEDS: divalproex sod 125mg sprinkle cap PO SCH ×3 (11:01→17:36)
[2019-07-14] MEDS: docusate sodium 100mg/10ml UD cup PO SCH ×2 (11:01→21:13)
[2019-07-14] MEDS: QUEtiapine 25mg tablet PO SCH ×2 (11:01→21:13)
[2019-07-14] MEDS: amLODIPine 5mg tablet PO SCH (11:05)
--- NOTE | 2019-07-14 18:15 | NUR ---
Patient in room [facility]. I have received report from Izabel WILDER and had the opportunity to ask questions and assume patient care.
--- NOTE | 2019-07-14 19:17 | NUR ---
Problems reprioritized. Patient report given, questions answered & plan of care reviewed with Candice WILDER.
[2019-07-14] MEDS: traZODone 50mg tablet PO SCH (21:21)
--- NOTE | 2019-07-15 06:08 | NUR ---
Problems reprioritized. Patient report given, questions answered & plan of care reviewed with Yola WILDER.
--- NOTE | 2019-07-15 06:29 | NUR ---
Patient in room [facility]. I have received report from Candice WILDER and had the opportunity to ask questions and assume patient care.
[2019-07-15] MEDS: amLODIPine 5mg tablet PO SCH (08:00)
[2019-07-15] MEDS: QUEtiapine 25mg tablet PO SCH ×2 (08:58→19:53)
[2019-07-15] MEDS: docusate sodium 100mg/10ml UD cup PO SCH ×2 (09:00→19:54)
[2019-07-15] MEDS: divalproex sod 125mg sprinkle cap PO SCH ×3 (09:01→17:49)
--- NOTE | 2019-07-15 09:04 | NUR ---
Pt refused V/S amlodipine not given.
--- NOTE | 2019-07-15 12:00 | NUR ---
Reassessment: PO intake is continuing to average 25-50% not meeting nutrient needs. Pt with LBM 07/10. Pt now receiving routine Colace with PRN MoM last given 07/10. Pt receiving prunes q lunch, d/w dietary to send prunes BIDLD. Constipation likely impacting PO intake as well as decreased mentation. Will continue to follow and monitor need for further nutrition intervention. Recommendations: 1) Continue regular diet 2) Encourage PO intake; honor food preferences 3) Prunes BIDLD 4) Routine bowel care 5) Wt per rx Addendum: 07/15/19 at [address] Amended: Links added.
--- NOTE | 2019-07-15 19:03 | NUR ---
Problems reprioritized. Patient report given, questions answered & plan of care reviewed with Katerina Tello RN.
[2019-07-15] MEDS: traZODone 50mg tablet PO SCH (19:54)
--- NOTE | 2019-07-15 21:35 | NUR ---
patient refusing VS.
--- NOTE | 2019-07-16 06:29 | NUR ---
Problems reprioritized. Patient report given, questions answered & plan of care reviewed with TINA Lr.
[2019-07-16] MEDS: amLODIPine 5mg tablet PO SCH (08:00)
[2019-07-16] MEDS: divalproex sod 125mg sprinkle cap PO SCH ×3 (08:30→18:00)
[2019-07-16] MEDS: docusate sodium 100mg/10ml UD cup PO SCH ×2 (11:37→21:16)
[2019-07-16] MEDS: acetaminophen 325mg tablet PO PRN (11:37)
[2019-07-16] MEDS: QUEtiapine 25mg tablet PO SCH ×2 (11:37→21:16)
--- NOTE | 2019-07-16 18:14 | NUR ---
pt calm and cooperative today. sleeping off and on with sitter at bedside. safety maintained ambulating in halls. refused VS today. Eating all meals.
--- NOTE | 2019-07-16 20:00 | NUR ---
Unable to complete full assessment. Pt is upset walking with sitter attempting to go into other pts rooms. Pt needing redirecting and not liking the guidance. Sitter remains with her. Will continue to monitor and treat pt as ordered. Addendum: 07/17/19 at 0227 by Ruthann Tsang RN Amended: Links added.
[2019-07-16] MEDS: traZODone 50mg tablet PO SCH (21:16)
[2019-07-17] MEDS: divalproex sod 125mg sprinkle cap PO SCH ×3 (11:34→17:52)
[2019-07-17] MEDS: docusate sodium 100mg/10ml UD cup PO SCH ×2 (11:34→20:53)
[2019-07-17] MEDS: amLODIPine 5mg tablet PO SCH (11:34)
[2019-07-17] MEDS: QUEtiapine 25mg tablet PO SCH ×2 (11:35→20:53)
[2019-07-17 12:00] VITALS: BP 155/69
--- NOTE | 2019-07-17 18:18 | NUR ---
Problems reprioritized. Patient report given, questions answered & plan of care reviewed with KAYKAY WILDER.
--- NOTE | 2019-07-17 18:33 | NUR ---
Patient in room [facility]. I have received report from TINA Shepard and had the opportunity to ask questions and assume patient care.
[2019-07-17] MEDS: traZODone 50mg tablet PO SCH (20:53)
--- NOTE | 2019-07-18 06:29 | NUR ---
Problems reprioritized. Patient report given, questions answered & plan of care reviewed with TINA Shepard.
--- NOTE | 2019-07-18 06:48 | NUR ---
Patient in room [facility]. I have received report from KAYKAY WILDER and had the opportunity to ask questions and assume patient care.
[2019-07-18] MEDS: amLODIPine 5mg tablet PO SCH (08:00)
[2019-07-18 09:17] VITALS: BP 127/42
[2019-07-18] MEDS: docusate sodium 100mg/10ml UD cup PO SCH ×2 (09:54→20:00)
[2019-07-18] MEDS: QUEtiapine 25mg tablet PO SCH ×2 (09:54→20:26)
[2019-07-18] MEDS: magnesium hydroxide 30ml (MOM) UD suspension PO PRN (09:54)
[2019-07-18] MEDS: divalproex sod 125mg sprinkle cap PO SCH ×3 (09:54→17:35)
--- NOTE | 2019-07-18 18:20 | NUR ---
Patient in room [facility]. I have received report from TINA Shepard and had the opportunity to ask questions and assume patient care.
--- NOTE | 2019-07-18 18:30 | NUR ---
Problems reprioritized. Patient report given, questions answered & plan of care reviewed with KAYKAY WILDER.
[2019-07-18] MEDS: traZODone 50mg tablet PO SCH (20:25)
--- NOTE | 2019-07-18 20:29 | NUR ---
During evening medications administration, pt swallowed 3 tablets of Seroquel and 1 tablet of Trazodone. Pt spit out 1 tablet of Seroquel and 1 tablet of Trazodone. Pt also refused liquid Docusate Sodium. Will continue to monitor patient.
--- NOTE | 2019-07-19 06:01 | NUR ---
Problems reprioritized. Patient report given, questions answered & plan of care reviewed with TINA Shepard.
--- NOTE | 2019-07-19 06:29 | NUR ---
Patient in room [facility]. I have received report from ellie bruner and had the opportunity to ask questions and assume patient care.
[2019-07-19 10:15] VITALS: BP 147/80
[2019-07-19] MEDS: QUEtiapine 25mg tablet PO SCH ×2 (10:20→20:17)
[2019-07-19] MEDS: docusate sodium 100mg/10ml UD cup PO SCH ×2 (10:20→20:17)
[2019-07-19] MEDS: divalproex sod 125mg sprinkle cap PO SCH ×3 (10:20→17:46)
[2019-07-19] MEDS: amLODIPine 5mg tablet PO SCH (10:21)
--- NOTE | 2019-07-19 18:09 | NUR ---
Patient in room [facility]. I have received report from Drea WILDER and had the opportunity to ask questions and assume patient care.
--- NOTE | 2019-07-19 18:30 | NUR ---
Patient in room [facility]. I have received report from Ning WILDER and had the opportunity to ask questions and assume patient care.
--- NOTE | 2019-07-19 18:34 | NUR ---
Problems reprioritized. Patient report given, questions answered & plan of care reviewed with TE WILDER.
[2019-07-19] MEDS: traZODone 50mg tablet PO SCH (20:17)
--- NOTE | 2019-07-20 06:43 | NUR ---
Problems reprioritized. Patient report given, questions answered & plan of care reviewed with Una WILDER.
--- NOTE | 2019-07-20 06:44 | NUR ---
Problems reprioritized. Patient report given, questions answered & plan of care reviewed with Una WILDER.
[2019-07-20] MEDS: docusate sod 100mg capsule PO SCH ×2 (08:00→21:07)
[2019-07-20 09:44] VITALS: BP 144/66
[2019-07-20] MEDS: QUEtiapine 25mg tablet PO SCH ×2 (09:48→21:07)
[2019-07-20] MEDS: amLODIPine 5mg tablet PO SCH (09:48)
[2019-07-20] MEDS: divalproex sod 125mg sprinkle cap PO SCH ×3 (09:48→17:41)
--- NOTE | 2019-07-20 16:18 | NUR ---
Reassessment: Pt PO continues to fluctuate, avg 25-50% with meal refusals, not meeting nutrient needs. Pt currently AOx1, likely contributing to fluctuating PO. LB 07/19, pt is receiving routine bowel care. Will continue to monitor. Recommendations: 1) Continue regular diet 2) Encourage PO intake; honor food preferences 3) Prunes BIDLD 4) Routine bowel care 5) Wt per rx Addendum: 07/20/19 at 1619 by Wing Tyrell PAREDES Amended: Links added. Addendum: 07/20/19 at [address] LENA agree with note
--- NOTE | 2019-07-20 18:19 | NUR ---
Patient in room [facility]. I have received report from Una WILDER and had the opportunity to ask questions and assume patient care.
--- NOTE | 2019-07-20 18:33 | NUR ---
Problems reprioritized. Patient report given, questions answered & plan of care reviewed with Nia WILDER.
[2019-07-20] MEDS: traZODone 50mg tablet PO SCH (21:07)
[2019-07-20] MEDS ORDERED: olanzapine 10mg tablet PO PRN (21:45)
--- NOTE | 2019-07-20 22:35 | NUR ---
1st attempt to call Cristina Banegas. Left a message on a voice mail requesting charge nurse to call back and ask for this nurse at [phone].
--- NOTE | 2019-07-20 23:00 | NUR ---
Called again. Nurse called Renetta answered and knew nothing of this patient. She state that she would contact her administration and call back. Has not called back as yet.
--- NOTE | 2019-07-21 02:53 | NUR ---
Just gave pt. the 0.5mg zyprexa in preparation [place] to [facility]. Patient however spat it back out and unable to persuade patient to take the made again.
--- NOTE | 2019-07-21 03:00 | NUR ---
Called SNF again and spoke to stephanie Amezcua LVN. Gave report to this nurse. Addendum: 07/21/19 at 0549 by Nia Payan RN [phone] is the facility number
--- NOTE | 2019-07-21 04:55 | NUR ---
Unable to insert bedoya catheter as patient refused. Patient put into depends for the journey and in hospital gown and pants. Extra supplies given to [employer] employees along with breakfast bag, lunch bag and snacks. Patient left with all belongings. Mrsa swab collected earlier.
== END 2019-07-21 05:10 | DRG 682 ==
LOC: ER 15:40 → ED HOLD 02-27 12:48 → SUR 3N 02-27 19:49 → CMPBEDREQ 03-02 18:05 → SUR 3N 03-17 18:44
PROVIDERS: ADMIT Internal Medicine; ATTEND Internal Medicine
DX: N17.9 Acute kidney failure, unspecified (principal); G93.41 Metabolic encephalopathy; N39.0 Urinary tract infection, site not specified; F02.81 Dementia in other diseases classified elsewhere, unspecified severity, with behavioral disturbance; R31.9 Hematuria, unspecified; G31.84 Mild cognitive impairment of uncertain or unknown etiology; G30.9 Alzheimer's disease, unspecified
CPT/HCPCS: 36415; 70450; 80048; 80053; 80305; 80320; 81001; 83735; 84100; 84443; 85025; 85027; 85610; 87077; 87081; 87088; 87186; 93005; 96365; 96372; 97116; 97161; 99285; G0378; J0696; J1200; J1630; J1644; J2060; J3486; J3490; J7030; Z7610